=== PATIENT | female | born 1950 | race Caucasian/White ===

== ENCOUNTER 2017-02-06 12:04 | Inpatient (IN) | payer MEDICARE, OTHER ==
[~2017-02-06] VITALS: Ht 167.6 cm; Wt 104.3 kg
[~2017-02-06 12:04] MED LIST: CHERATUSSIN AC473 ML PO; CYCLOBENZAPRINE10 MG PO; FLAGYL500 MG PO; FLORANEX / LACT1 TAB PO; HYDROCODONE-APA1 TAB PO; LASIX40 MG PO; LOPRESSOR25 MG PO; NEURONTIN600 MG PO; OLEPTRO ER150 MG PO; OMEPRAZOLE40 MG PO; PLAQUENIL200 MG PO; SALAGEN5 MG PO; VASERETIC 10-251 TAB PO
[2017-02-06 13:09] LABS: BASOPHILS 0.2 % (0.0-2.0); EOSINOPHILS 0.1 % (0-7); HEMATOCRIT 39.5 % (36.0-48.0); HEMOGLOBIN 13.3 g/dL (12-16); IMMATURE GRANULOCYTES 0.3 % (0-5); LYMPHOCYTES 17.5 % (15-50); MCH 32.9 pg (26.0-34.0); MCHC 33.7 g/dL (31.0-37.0); MCV 97.8 fL (80.0-100.0); MEAN PLATELET VOLUME 10.9 fL (7.4-10.4); MONOCYTES 4.1 % (2-11); NEUTROPHILS 77.8 % (40-80); RBC 4.04 10x6/uL (4.00-5.40); RDW 14.2 % (11.5-14.5); WBC 9.3 10x3/uL (4.8-10.8)
[2017-02-06 13:23] LABS: ALBUMIN 3.3 g/dL (3.4-5.0); ALKALINE PHOSPHATASE 178 U/L (46-116); ALT (SGPT) 55 U/L (10-68); AMYLASE - SERUM 93 U/L (25-115); BILIRUBIN - TOTAL 0.83 mg/dL (0.2-1.3); CALC OSMOLALITY 261 mosm/kg (275-300); CALCIUM 7.5 mg/dL (8.5-10.1); CARBON DIOXIDE 11.3 mmol/L (21.0-32.0); CHLORIDE - SERUM 93 mmol/L (98-107); CREATININE - SERUM 0.7 mg/dL (0.6-1.3); LIPASE 645 U/L (73-393); POTASSIUM - SERUM 3.1 mmol/L (3.5-5.1); PROTEIN - SERUM 6.3 g/dL (6.4-8.2); SODIUM 133 mmol/L (136-145); UREA NITROGEN 10 mg/dL (7-18); eGFR NON AFRICAN AMERICAN 89 mL/min (90-120)
[2017-02-06 13:24] LABS: GLUCOSE 53 mg/dL (74-106)
[2017-02-06 13:30] LABS: PLATELET COUNT 40 10x3/uL (130-400)
[2017-02-06 13:46] LABS: APPEARANCE CLEAR (CLEAR); BILIRUBIN NEGATIVE (NEGATIVE); COLOR YELLOW (YELLOW); GLUCOSE NEGATIVE (NEGATIVE); KETONE LARGE mg/dL (NEGATIVE); LEUKOCYTE ESTERASE NEGATIVE (NEGATIVE); NITRITE NEGATIVE (NEGATIVE); PROTEIN TRACE mg/dL (NEGATIVE); UROBILINOGEN NORMAL (NORMAL); WHITE CELLS - URINE RARE /hpf (0-5)
[2017-02-06 13:47] LABS: BACTERIA FEW /hpf (NONE SEEN); EPITHELIAL CELLS 0-5 /hpf (0-5); GRANULAR CAST RARE /lpf (NONE SEEN); HYALINE CAST 0-5 /lpf (NONE SEEN); MUCUS <1+ /lpf (NONE SEEN); RED CELLS - URINE RARE /hpf (0-5)
[2017-02-06 13:58] LABS: PLATELET ESTIMATE DECREASED
[2017-02-06] MEDS ORDERED: LEVOTHYROXINE50 MCG PO (19:31)
[2017-02-06] MEDS ORDERED: CLONAZEPAM2 MG/TAB PO (19:31)
[2017-02-06 19:32] VITALS: BMI 37.2
[2017-02-06 20:00] VITALS: BP 139/83
--- NOTE | 2017-02-06 21:12 | NUR ---
HYDROCODONE GIVEN PER MAR FOR C/O R EASTMAN PAIN 08/16, LEONEL WELL, CL IN REACH
--- NOTE | 2017-02-06 21:55 | NUR ---
MEDS GIVEN PER BLANK, LEONEL WELL, SPOUSE AT BEDSIDE, CL IN REACH
[2017-02-07] VITALS: BP 135/67
[2017-02-07] MEDS ORDERED: LYRICA50 MG PO (01:05)
--- NOTE | 2017-02-07 01:17 | NUR ---
PRN NORCO GIVEN FOR C/O R EASTMAN PAIN 05/16, LEONEL WELL, CL IN REACH
[2017-02-07 08:06] VITALS: BP 129/68
[2017-02-07 11:21] VITALS: BP 130/81
[2017-02-07 12:00] LABS: BASOPHILS 0.1 % (0.0-2.0); EOSINOPHILS 0.8 % (0-7); IMMATURE GRANULOCYTES 0.3 % (0-5); LYMPHOCYTES 17.7 % (15-50); MCH 32.4 pg (26.0-34.0); MCHC 33.5 g/dL (31.0-37.0); MCV 96.6 fL (80.0-100.0); MEAN PLATELET VOLUME 10.6 fL (7.4-10.4); MONOCYTES 4.6 % (2-11); NEUTROPHILS 76.5 % (40-80); RBC 3.24 10x6/uL (4.00-5.40); RDW 14.1 % (11.5-14.5); WBC 7.2 10x3/uL (4.8-10.8)
[2017-02-07 12:01] LABS: HEMATOCRIT 31.3 % (36.0-48.0); HEMOGLOBIN 10.5 g/dL (12-16)
[2017-02-07 12:02] LABS: PLATELET COUNT 35 10x3/uL (130-400)
--- NOTE | 2017-02-07 12:05 | NUR ---
WOUND CARE: PT HAS LONG HX OF CHRONIC NON-HEALING SURGICAL WOUND TO ABDOMEN (7 YEARS). SHE IS SEEN AT WOUND CLINIC (DR. BREWER) WEEKLY AND HER DOES DRESSING CHANGES DAILY. CURRENTLY USING MEDIHONEY, ADAPTIC, 4X4S AND MEDIPORE TAPE. PT/ REQUEST THAT HE CONTINUES TO DO DRESSING CHANGES. WOUND CARE WILL CONTINUE TO MONITOR.
[2017-02-07 12:23] LABS: ALBUMIN 2.8 g/dL (3.4-5.0); BILIRUBIN - TOTAL 1.44 mg/dL (0.2-1.3); CALCIUM 8.1 mg/dL (8.5-10.1); PROTEIN - SERUM 5.7 g/dL (6.4-8.2)
[2017-02-07 12:24] LABS: ANION GAP 17.9 mmol/L (8-16); CARBON DIOXIDE 21.8 mmol/L (21.0-32.0); CREATININE - SERUM 0.9 mg/dL (0.6-1.3); POTASSIUM - SERUM 3.7 mmol/L (3.5-5.1)
[2017-02-07 14:27] VITALS: Ht 167.6 cm; Wt 104.3 kg
[2017-02-07 15:20] VITALS: BP 132/64
[2017-02-07 19:00] VITALS: BP 128/74
--- NOTE | 2017-02-07 20:10 | NUR ---
PT LYING IN BED TALKING WITH , ASSESSMENT COMPLETED, NO ACUTE DISTRESS NOTED, DENIES NEEDS AT THIS TIME, SR'S UP, CL IN REACH, WILL MONITOR
--- NOTE | 2017-02-07 22:46 | NUR ---
2 UNITS INSULIN GIVEN PER SLIDING SCALE FOR BS OF 173 ALONG WITH ROUTINE MEDS, LEONEL WELL, SPOUSE AT BEDSIDE
--- NOTE | 2017-02-07 23:18 | NUR ---
PRN PAIN MED GIVEN FOR C/O PAIN 06/16, LEONEL WELL, CL IN REACH
[2017-02-08] VITALS (13 sets, daily range): BP systolic 100–171; BP diastolic 49–95
--- NOTE | 2017-02-08 02:23 | NUR ---
LEONEL ROJAS WELL, PT AND RESTING WITH SNORING RESP, CL IN REACH
[2017-02-08 04:57] LABS: BASOPHILS 0.2 % (0.0-2.0); EOSINOPHILS 1.7 % (0-7); HEMATOCRIT 28.8 % (36.0-48.0); HEMOGLOBIN 9.6 g/dL (12-16); IMMATURE GRANULOCYTES 0.4 % (0-5); LYMPHOCYTES 33.5 % (15-50); MCH 32.3 pg (26.0-34.0); MCHC 33.3 g/dL (31.0-37.0); MEAN PLATELET VOLUME 9.8 fL (7.4-10.4); MONOCYTES 4.8 % (2-11); NEUTROPHILS 59.4 % (40-80); RBC 2.97 10x6/uL (4.00-5.40); RDW 13.9 % (11.5-14.5); WBC 5.4 10x3/uL (4.8-10.8)
[2017-02-08 05:11] LABS: HEMOGLOBIN A1C 4.8 % (4.8-6.0)
[2017-02-08 05:14] LABS: PLATELET COUNT 31 10x3/uL (130-400)
[2017-02-08 05:30] LABS: ALBUMIN 2.6 g/dL (3.4-5.0); ANION GAP 14.5 mmol/L (8-16); BILIRUBIN - TOTAL 0.67 mg/dL (0.2-1.3); CALCIUM 8.3 mg/dL (8.5-10.1); CARBON DIOXIDE 24.7 mmol/L (21.0-32.0); CHOL - HDL RATIO 1.7 ratio (2.3-4.1); CREATININE - SERUM 0.9 mg/dL (0.6-1.3); LDL-HDL RATIO 0.4 ratio (1.5-3.5); POTASSIUM - SERUM 3.2 mmol/L (3.5-5.1); PROTEIN - SERUM 5.5 g/dL (6.4-8.2); THYROID STIMULATING HORMONE 5.53 uIU/mL (0.36-3.74)
[2017-02-08 09:01] LABS: % SATURATION 49 % (15-55); IRON 55 ug/dl (35-150); TOTAL IRON BIND CAPACITY 112 ug/dl (260-445); UNSAT IRON BIND CAPACITY 57 ug/dl (150-375)
[2017-02-08 09:14] LABS: PATH REVIEW PERIPHERAL SMEAR REVIEWED
[2017-02-08 11:08] LABS: T4 THYROXIN - FREE 1.31 ng/dL (0.76-1.46)
--- NOTE | 2017-02-08 12:52 | NUR ---
Patient Name: CALEB TELLEZ Admission Status: ER Accout number: [id number] Admission Date: 02-07-2017 : 1950 Admission Diagnosis: Attending: SABINO Current LOS: 1 Anticipated DC Date: 02-11-2017 Planned Disposition: Home with Home Health Primary Insurance: MEDICARE A & B Discharge Planning Comments: CM MET WITH PATIENT REGARDING D/C NEEDS AND PLANS. PATIENT STATED SHE LIVES WITH HER (NILE) AND HE WILL DRIVE HER HOME AT DISCHARGE. PATIENT STATED SHE HAS A RAMP TO ENTER HER HOME AND NO STAIRS INSIDE. PATIENT STATED SHE IS INDEPENDENT WITH HER CARE AND HER HELPS WITH HER MEDICINE. PATIENTS PCP IS DR. PERAZA AND USES [facility]. PATIENT IS CURRENT WITH [facility]. CM WILL CONTINUE TO FOLLOW PATIENT WITH D/C NEEDS AND PLANS. PCP DR. PERAZA [facility]- [phone] [employer] [facility] [phone] NILE (SPOUSE) [phone] Infrastructure Engineer: Diane Daigle Is the patient Alert and Oriented? Yes 0 * How many steps to enter\exit or inside your home? RAMP 0 * PCP DR. PERAZA 0 * Pharmacy [facility] 0 * Preadmission Environment Home with Family 0 * ADLs Partial Dependent 0 * Partial ADLs (Assistance needed) Medication Management 0 * Equipment Cane Shower Chair Walker Wheelchair 0 * List name and contact numbers for known caregivers / representatives who currently or will assist patient after discharge: NILE (SPOUSE) [phone] 0 * Community resources currently utilized Home Health 0 * Please name any agencies selected above. [facility] 0 * Additional services required to return to the preadmission environment? Yes 0 * Can the patient safely return to the preadmission environment? Yes 0 * Has this patient been hospitalized within the prior 30 days at any hospital? No 0 Grand Total: 0
--- NOTE | 2017-02-08 15:12 | NUR ---
Rehab Note- Acute Rehab Prescreen received. The patient appears to be a good IRF candidate when the physicians feel she is ready for discharge from the acute hospital. Thank you for this referral! Linsey Urena RN Clinical Liaison. [facility] Rehab/[place]
[2017-02-09] VITALS: BP 117/71
[2017-02-09 04:00] VITALS: BP 111/98
[2017-02-09 05:50] LABS: BASOPHILS 0.4 % (0.0-2.0); EOSINOPHILS 3.5 % (0-7); HEMATOCRIT 27.6 % (36.0-48.0); HEMOGLOBIN 9.2 g/dL (12-16); IMMATURE GRANULOCYTES 0.5 % (0-5); LYMPHOCYTES 31.3 % (15-50); MCH 32.6 pg (26.0-34.0); MCHC 33.3 g/dL (31.0-37.0); MCV 97.9 fL (80.0-100.0); MEAN PLATELET VOLUME 10.3 fL (7.4-10.4); MONOCYTES 5.8 % (2-11); NEUTROPHILS 58.5 % (40-80); RBC 2.82 10x6/uL (4.00-5.40); RDW 14.1 % (11.5-14.5); WBC 5.5 10x3/uL (4.8-10.8)
[2017-02-09 05:53] LABS: PLATELET COUNT 88 10x3/uL (130-400)
[2017-02-09 06:12] LABS: % SATURATION 16 % (15-55); IRON 34 ug/dl (35-150); TOTAL IRON BIND CAPACITY 206 ug/dl (260-445); UNSAT IRON BIND CAPACITY 172 ug/dl (150-375)
[2017-02-09 06:26] LABS: ALBUMIN 2.8 g/dL (3.4-5.0); ANION GAP 14.5 mmol/L (8-16); BILIRUBIN - TOTAL 0.45 mg/dL (0.2-1.3); CALCIUM 8.2 mg/dL (8.5-10.1); CARBON DIOXIDE 23.8 mmol/L (21.0-32.0); CREATININE - SERUM 0.9 mg/dL (0.6-1.3); POTASSIUM - SERUM 3.3 mmol/L (3.5-5.1); PROTEIN - SERUM 5.6 g/dL (6.4-8.2)
--- NOTE | 2017-02-09 07:30 | NUR ---
PATIENT RECEIVED ALERT IN HIGH PETIT POSITION WITH FAMILY PRESENT. RESPIRATIONS EVEN AND UNLABORED. SIDE RAILS UP X2. BED IN LOW POSITION. CALL LIGHT IN REACH. DENIES NEEDS.
[2017-02-09 08:59] VITALS: BP 131/76
--- NOTE | 2017-02-09 09:30 | NUR ---
ALERT IN BED. RESPIRATIONS EVEN AND UNLABORED. SCHEDULED MEDICATION ADMINISTERED. DENIES NEEDS. DRESSING TO LEFT INFUSAPORT CHANGED PER FACILITY PROTOCOL. MASK PLACED ON PATIENT. OLD DRESSING REMOVED. NO REDNESS OR INFLAMMATION NOTED AT SITE. CLEANSED WITH CLEANSER PROVIDED IN KIT. BIOPATCH AND CLEAN TEGADERM DRESSING PLACED AT SITE. SWAB CAPS IN USE. WELL TOLERATED. SIDE RAILS UP X2. BED IN LOW POSITION. CALL LIGHT IN REACH.
--- NOTE | 2017-02-09 11:03 | NUR ---
ALERT IN BED. ACCU CHECK 101. NORCO 2 TAB PER PRN ORDER FOR PAIN 06/16. NO FURTHER NEEDS VOICED. SIDE RAILS UP X2. BED IN LOW POSITION. CALL LIGHT IN REACH.
--- NOTE | 2017-02-09 13:04 | NUR ---
NUTRITION MONITORING & EVAL CHART REVIEWED. PT TOLERATING ADA DIET. ~75% INTAKE BREAKFAST, NOT YET FINISHED LUNCH. WILL CONTINUE TO PROVIDE DIET, MONITOR PT PROGRESS. RD FOLLOWING
[2017-02-09 13:09] VITALS: BP 117/70
--- NOTE | 2017-02-09 14:20 | NUR ---
IV ABX INITIATED PER ORDER. INFUSAPORT FLUSHES EASY WITH BRISK BLOOD RETURN PRESENT. DENIES NEEDS. SIDE RAILS UP X2. BED IN LOW POSITION. CALL LIGHT IN REACH.
--- NOTE | 2017-02-09 15:32 | NUR ---
CM REASSESSMENT NOTE: REFERRAL HAS BEEN SENT TO [facility] FOR SKILLED REHAB PER PATIENT REQUEST. PATIENT SIGNED THE IVON FORM.
[2017-02-09] MEDS ORDERED: PROTONIX40 MG PO (15:40)
[2017-02-09] MEDS ORDERED: OMNICEF300 MG PO (15:41)
--- NOTE | 2017-02-09 15:54 | NUR ---
Rehab Note- Spoke with the patient about [facility], the patient was very interested but wanted to speak with her , stated also looking to just go to [facility] because it is two blocks from her home. The patient called back around 1330 and stated that she was going to plan on going to [facility] since it was so close to home. Thank you for this referral! Linsey Urena RN Clinical Liaison, [facility] Rehab/[place]
--- NOTE | 2017-02-09 16:30 | NUR ---
ALERT IN BED WITH FAMILY PRESENT. ACCU CHECK 94. NORCO PER PRN ORDER FOR PAIN 06/16. NO FURTHER NEEDS VOICED. SIDE RAILS UP X2. BED IN LOW POSITION. CALL LIGHT IN REACH.
[2017-02-09 17:30] VITALS: BP 113/72
[2017-02-09 19:00] VITALS: BP 114/67
--- NOTE | 2017-02-09 20:18 | NUR ---
PATIENT RESTING IN BED WITH AT BEDSIDE AND DENIES NEEDS AT THIS TIME. BED IN LOWEST POSITION AND CALL LIGHT WITHIN REACH. ENCOURAGED PATIENT TO CALL IF SHE HAS FURTHER NEEDS.
[2017-02-10] VITALS: BP 114/73
[2017-02-10 04:00] VITALS: BP 118/68
[2017-02-10 06:43] LABS: ALBUMIN 2.5 g/dL (3.4-5.0); ALKALINE PHOSPHATASE 105 U/L (46-116); ALT (SGPT) 53 U/L (10-68); BILIRUBIN - TOTAL 0.22 mg/dL (0.2-1.3); CALC OSMOLALITY 266 mosm/kg (275-300); CALCIUM 8.1 mg/dL (8.5-10.1); CARBON DIOXIDE 24.5 mmol/L (21.0-32.0); CHLORIDE - SERUM 102 mmol/L (98-107); CREATININE - SERUM 0.7 mg/dL (0.6-1.3); GLUCOSE 82 mg/dL (74-106); POTASSIUM - SERUM 3.5 mmol/L (3.5-5.1); PROTEIN - SERUM 4.9 g/dL (6.4-8.2); SODIUM 135 mmol/L (136-145); UREA NITROGEN 7 mg/dL (7-18); eGFR NON AFRICAN AMERICAN 89 mL/min (90-120)
[2017-02-10 07:36] LABS: BASOPHILS 0.4 % (0.0-2.0); EOSINOPHILS 3.2 % (0-7); HEMATOCRIT 27.3 % (36.0-48.0); HEMOGLOBIN 8.9 g/dL (12-16); IMMATURE GRANULOCYTES 0.4 % (0-5); LYMPHOCYTES 31.6 % (15-50); MCHC 32.6 g/dL (31.0-37.0); MONOCYTES 9.1 % (2-11); NEUTROPHILS 55.3 % (40-80); PLATELET COUNT 87 10x3/uL (130-400); RDW 14.6 % (11.5-14.5); WBC 4.9 10x3/uL (4.8-10.8)
--- NOTE | 2017-02-10 07:40 | NUR ---
REQUEST TO TALK TO PT, SINUS TACH ON MONITOR, DENIES NEEDS, REQUEST SHOWER, ASSESSMENT COMPLETE, BED LOWEST POSITION, CALL LIGHT IN REACH, WILL CONTINUE TO MONITOR
[2017-02-10 07:43] LABS: MCV 101.1 fL (80.0-100.0)
[2017-02-10 08:00] VITALS: BP 113/59
--- NOTE | 2017-02-10 09:10 | NUR ---
CM REASSESSMENT NOTE: PATIENT WANTS TO GO TO IP REHAB AT THIS TIME AND NOT [facility]. IP REHAB NOTIFIED-THEY HAVE BEEN FOLLOW PATIENT.
[2017-02-10 12:00] VITALS: BP 109/61
--- NOTE | 2017-02-10 12:50 | NUR ---
PATIENT AMBULATING IN THE SPARROW WITH PHYSICAL THERAPY. GAIT STEADY. NO SIGNS OF DISTRESS NOTED.
--- NOTE | 2017-02-10 14:07 | NUR ---
CM REASSESSMENT NOTE: PATIENT IS GOING TO IP REHAB TODAY.
--- NOTE | 2017-02-10 14:11 | NUR ---
CM REASSESSMENT NOTE: PATIENT IS GOING TO IP REHAB TODAY.
--- NOTE | 2017-02-10 17:35 | NUR ---
DISCHARGE PAPERS AND INSTRUCTIONS GIVEN TO PATIENT AND SPOUSE, QUESTIONS ANSWERED, PORT SALINE LOCKED, DISCHARGED TO REHAB PWE WC WITH BELONGINGS
[2017-02-11 13:17] LABS: ADAMTS13 ACTIVITY 55 % (>66)
== END 2017-02-10 17:36 | DRG 813 ==
LOC: D.ER 12:04 → OBSVTIME 17:51 → D.MS 17:51 → D.SDCHOLD 02-07 13:41 → D.MS 02-07 13:41
PROVIDERS: Emergency Medicine; Family Medicine; Internal Medicine Gastroenterology; Internal Medicine Hematology & Oncology; ADMIT Family Medicine
DX: D69.6 Thrombocytopenia, unspecified (principal); J18.9 Pneumonia, unspecified organism; R53.2 Functional quadriplegia; E87.1 Hypo-osmolality and hyponatremia; K86.1 Other chronic pancreatitis; K92.1 Melena; R53.1 Weakness; E87.6 Hypokalemia; E86.0 Dehydration; E16.2 Hypoglycemia, unspecified; I10 Essential (primary) hypertension; E03.9 Hypothyroidism, unspecified; D86.9 Sarcoidosis, unspecified; D63.8 Anemia in other chronic diseases classified elsewhere; Z95.5 Presence of coronary angioplasty implant and graft; M32.9 Systemic lupus erythematosus, unspecified; D50.9 Iron deficiency anemia, unspecified; R19.7 Diarrhea, unspecified

== ENCOUNTER 2017-02-10 16:29 | Inpatient (IN) | payer MEDICARE, OTHER ==
[~2017-02-10] VITALS: Ht 167.6 cm; Wt 108.9 kg
[~2017-02-10 16:29] MED LIST changes: +CLONAZEPAM2 MG/TAB PO; +LEVOTHYROXINE50 MCG PO; +LYRICA50 MG PO; +OMNICEF300 MG PO; +PROTONIX40 MG PO
--- NOTE | 2017-02-10 16:50 | NUR ---
RECIEVED ON FLOOR/WC TO ROOM 1112B.ORIENTED TO SURROUNDINGS.CL IN REACH. AT BEDSIDE.
[2017-02-10 18:13] VITALS: BP 120/65; BMI 38.8
--- NOTE | 2017-02-10 19:20 | NUR ---
PT. IN BED WITH HOB UP FOR COMFORT AND IS WATCHING TV. ASSESSMENT COMPLETED. PT. REQUESTING PAIN MEDICATION FOR HER SENIOR LIVING PAIN IN THE LLQ ABD. AREA AND ALSO HER SHINS. NORCO WILL BE ADMINISTERED. NO OTHER VOICED NEEDS AT THIS TIME AND SHE HAS HER CALL LIGHT WITHIN REACH.
--- NOTE | 2017-02-10 23:10 | NUR ---
ASSISTED PT. TO BATHROOM TO URINATE. PT. APPLIED HER OWN NYSTATIN CREAM AND CALMOSEPTINE AFTER SHE HAD WIPED HERSELF. PT. BACK TO BED AND POSITIONED TO COMFORT AFTER APPLYING THE SCD'S. CALL LIGHT WITHIN REACH.
--- NOTE | 2017-02-11 01:28 | NUR ---
PT. IN BED WITH HOB UP FOR COMFORT WITH EYES CLOSED AND RESP. DEEP AND EVEN. SCD'S TO BLE'S ON AND CALL LIGHT WITHIN REACH.
--- NOTE | 2017-02-11 04:17 | NUR ---
PT. LYING IN BED ON HER RIGHT SIDE WITH HOB UP FOR COMFORT. EYES CLOSED AND RESP. EVEN. CALL LIGHT WITHIN REACH.
[2017-02-11 05:59] LABS: BASOPHILS 0.9 % (0.0-2.0); EOSINOPHILS 3.5 % (0-7); HEMATOCRIT 26.4 % (36.0-48.0); HEMOGLOBIN 8.6 g/dL (12-16); IMMATURE GRANULOCYTES 0.3 % (0-5); LYMPHOCYTES 30.1 % (15-50); MCH 33.3 pg (26.0-34.0); MCHC 32.6 g/dL (31.0-37.0); MCV 102.3 fL (80.0-100.0); MEAN PLATELET VOLUME 10.3 fL (7.4-10.4); MONOCYTES 10.7 % (2-11); NEUTROPHILS 54.5 % (40-80); RBC 2.58 10x6/uL (4.00-5.40); RDW 16.3 % (11.5-14.5)
--- NOTE | 2017-02-11 06:00 | NUR ---
BLOOD SUGAR ON NON-DIABETIC PT. WAS 79 AND SHE WANTED DECAF. COFFEE WITH CREAMER. PT. TO CALL NURSE OF SHE STARTED TO GET DIZZY, WEAK, CLAMMY OR JUST FEELING BAD. PT. SAID SHE WOULD. CALL LIGHT WITHIN REACH.
[2017-02-11 06:06] LABS: WBC 3.5 10x3/uL (4.8-10.8)
[2017-02-11 06:07] LABS: PLATELET COUNT 114 10x3/uL (130-400)
[2017-02-11 06:14] LABS: CALC OSMOLALITY 267 mosm/kg (275-300); CALCIUM 8.2 mg/dL (8.5-10.1); CARBON DIOXIDE 25.8 mmol/L (21.0-32.0); CHLORIDE - SERUM 102 mmol/L (98-107); CREATININE - SERUM 0.8 mg/dL (0.6-1.3); POTASSIUM - SERUM 3.5 mmol/L (3.5-5.1); SODIUM 136 mmol/L (136-145); UREA NITROGEN 6 mg/dL (7-18); eGFR NON AFRICAN AMERICAN 76 mL/min (90-120)
[2017-02-11 06:20] LABS: GLUCOSE 69 mg/dL (74-106)
--- NOTE | 2017-02-11 06:30 | NUR ---
WHILE ASSISTING PT. GETTING DRESSED FOR THE DAY SHE STARTED TO FEEL CLAMMY. PT. ASSISTED BACK TO BED AND GIVEN CRANBERRY JUICE COCKTAIL AND A COLD WASH CLOTH. AFTER APPROX. 5 MIN. PT. FELT MUCH BETTER. CALL LIGHT WITHIN REACH AND PT. AGAIN INSTRUCTED TO CALL NURSE IF SHE STARTED TO FEEL BAD AGAIN.
--- NOTE | 2017-02-11 07:00 | NUR ---
PT WAS RECEIVED AT THE BEGINNING OF THIS SHIFT IN BED AWAKE AND ORIENTED X 3. NO VOICED COMPLAINTS OR CONCERNS AT THIS TIME. VITAL SIGNS; TEMP. 97.9, PULSE 78, RESP. 14, B/P 110/61, O2SAT 98%. WILL BE MONITORING HER THROUGHOUT THIS SHIFT AND ASSISTING PRN WITH ADL'S. CALL LIGHT IS IN REACH.
--- NOTE | 2017-02-11 08:02 | NUR ---
PT UP IN WHEELCHAIR AT BEDSIDE EATING BREAKFAST CALL LIGHT IN REACH WILL MONITER
[2017-02-11 08:41] VITALS: BP 110/61
[2017-02-11 12:56] VITALS: Ht 167.6 cm; Wt 108.9 kg
--- NOTE | 2017-02-11 13:47 | NUR ---
PT ASKED FOR A PAIN PILL THIS MORNING AROUND 0840 AND AGAIN THIS AFTERNOON AT 1PM. SHE WAS GIVEN A NORCO 10MG EACH TIME FOR HER DISCOMFORT IN HER RIGHT EASTMAN AREA AND HER ABDOMINAL WOUND. WILL BE MONITORING HER COMFORT LEVEL. HER IS AT HER BEDSIDE VISITING HER.
[2017-02-11 18:58] VITALS: BP 109/60
--- NOTE | 2017-02-11 19:51 | NUR ---
PT RECEIVED IN CHAIR AT BEDSIDE READING A BOOK. PAIN LEVEL 7/10 PT STATES SHE HAD PAIN PILL AT 1700. NO OTHER CONCERNS MADE KNOWN. WILL ADMINISTER PRN WHEN AVAILABLE. CALL LIGHT IN REACH.
--- NOTE | 2017-02-12 02:43 | NUR ---
PT IN BED AT THIS TIME WITH EYES CLOSED AND CHEST RISING. NO SIGN/SYMPTOMS OF DISTRESS NOTED. CALL LIGHT IN REACH,
[2017-02-12 07:00] VITALS: BP 122/59
--- NOTE | 2017-02-12 07:30 | NUR ---
PT IS RESTING IN BED WITH EYES OPEN. ALERT AND ORIENTED X 3. DENIES PAIN OR DISCOMFORT AT THIS TIME. NO SOB NOTED. DRESSING TO LEFT SIDE ABD IS CDI. LEFT CHEST PORT NOTED. SR'S ARE UP X 2 IN BED. CALL LIGHT AND BEDSIDE TABLE ARE WITHIN EASY REACH.
--- NOTE | 2017-02-12 09:48 | NUR ---
PT IS PARTICIPATING IN THERAPY AT THIS TIME.
--- NOTE | 2017-02-12 12:01 | NUR ---
PT IS RESTING QUIETLY IN BED WITH EYES OPEN. FEEDING SELF LUNCH WITHOUT DIFFICULTY. NO NEEDS VOICED.
--- NOTE | 2017-02-12 13:29 | NUR ---
PT IS PARTICIPATING IN THERAPY AT THIS TIME.
--- NOTE | 2017-02-12 15:43 | NUR ---
PT IS RESTING IN BED VISITING WITH FAMILY. NO DISTRESS NOTED.
--- NOTE | 2017-02-12 18:42 | NUR ---
RESTING QUIETLY IN BED. CALL LIGHT IN REACH
--- NOTE | 2017-02-12 21:02 | NUR ---
PT HS MEDS ADMINISTERED ALONG WITH REQUESTED KLONOPIN AND HYDROCODONE. PT APPLYING OWN CALMOSEPTINE AND NYSTATIN. WCTM. BED LOW. CL IN REACH.
--- NOTE | 2017-02-13 00:05 | NUR ---
PT RESTING, EYES CLOSED. BED LOW. CL IN [facility].
--- NOTE | 2017-02-13 01:04 | NUR ---
PT RESTING, EYES CLOSED. BED LOW. CL IN REACH.
--- NOTE | 2017-02-13 03:15 | NUR ---
PT RESTING, EYES CLOSED. RR ARE EVEN AND UNLABORED. WCTM. BED LOW. CL IN REACH.
--- NOTE | 2017-02-13 05:53 | NUR ---
PT AM MEDS ADMINISTERED. ASSISTED PT TO BR. PT BACK IN BED AND DENIES NEEDS. BED LOW. C DAVID REACH.
[2017-02-13 07:00] VITALS: BP 91/66
--- NOTE | 2017-02-13 07:30 | NUR ---
PT RESTING IN BED WITH EYES OPEN. ALERT AND ORIENTED X 3. STATES SHE DOES NOT REALLY FEEL GOOD TODAY, BUT CANNOT PINPOINT ANY SPECIFIC REASON FOR IT. VSS. LEFT CHEST PORT NOTED. ABD DRESSING IS CDI. SR'S ARE UP X 2 IN BED. CALL LIGHT AND BEDSIDE TABLE ARE WITHIN EASY REACH.
--- NOTE | 2017-02-13 07:30 | NUR ---
SITTING UP IN NC.CL IN REACH.DENIES NEEDS.
--- NOTE | 2017-02-13 09:37 | NUR ---
PT IS RESTING IN BED WATCHING TV. NO NEEDS VOICED.
--- NOTE | 2017-02-13 12:01 | NUR ---
PT IS EATING LUNCH IN BED. NO DISTRESS NOTED. SPOUSE IS AT BEDSIDE.
--- NOTE | 2017-02-13 15:00 | NUR ---
PT UP TO SHOWER WITH ASSIST OF HER SPOUSE. PT DENIES ANY DIFFICULTIES.
--- NOTE | 2017-02-13 16:43 | NUR ---
PT IS RESTING QUIETLY IN BED WITH EYES OPEN. VISITING WITH HER . NO NEEDS VOICED.
[2017-02-13 19:00] VITALS: BP 92/52
--- NOTE | 2017-02-13 19:20 | NUR ---
ASSISTED PATIENT UP TO BR, AMBULATING SBA WITH R/W, AND THEN BACK TO BED.
--- NOTE | 2017-02-13 21:10 | NUR ---
ASSESSMENT AND HS MEDS COMPLETE. GAVE PATIENT NORCO 10/325 X1 TAB PO FOR PAIN LEVEL OF 7/10 IN LEFT EASTMAN, RIGHT KNEE, AND ABDOMINAL WOUND. THEN ASSISTED HER TO AMBULATE TO BR.
--- NOTE | 2017-02-13 23:50 | NUR ---
RESTNG IN BED, EYES CLOSED.
[2017-02-14] VITALS (10 sets, daily range): BP systolic 101–126; BP diastolic 52–72
--- NOTE | 2017-02-14 02:00 | NUR ---
ASSISTED PATIENT UP TO BR TO URINATE, AND THEN BACK TO BED. AMBULATES SAFELY SBA WITH R/W.
--- NOTE | 2017-02-14 03:50 | NUR ---
RESTING IN BED, EYES CLOSED. RESPIRATIONS ARE QUIET AND UNLABORED.
--- NOTE | 2017-02-14 04:45 | NUR ---
RESTING QUIETLY, EYES CLOSED. RESPIRATIONS UNLABORED.
--- NOTE | 2017-02-14 06:00 | NUR ---
SHITAL BLOOD FOR LABS FROM LEFT CHEST INFUSAPORT FLUSHED PORT MULTIPLE TIMES AND FINALLY GOT GOOD BLOOD RETURN. OVSERVED PATIENT AMBULATED TO BR AND BACK USING R/W. TOO SCHEDULED PO MEDS. DENIES NEEDS.
[2017-02-14 06:14] LABS: BASOPHILS 0.9 % (0.0-2.0); EOSINOPHILS 1.9 % (0-7); IMMATURE GRANULOCYTES 0.3 % (0-5); LYMPHOCYTES 30.6 % (15-50); MCH 32.8 pg (26.0-34.0); MCV 102.5 fL (80.0-100.0); MEAN PLATELET VOLUME 9.3 fL (7.4-10.4); NEUTROPHILS 46.3 % (40-80); RBC 2.44 10x6/uL (4.00-5.40); RDW 16.3 % (11.5-14.5); WBC 3.2 10x3/uL (4.8-10.8)
[2017-02-14 06:23] LABS: PLATELET COUNT 224 10x3/uL (130-400)
[2017-02-14 06:32] LABS: CALC OSMOLALITY 284 mosm/kg (275-300); CALCIUM 7.7 mg/dL (8.5-10.1); CARBON DIOXIDE 25.5 mmol/L (21.0-32.0); CHLORIDE - SERUM 107 mmol/L (98-107); CREATININE - SERUM 0.7 mg/dL (0.6-1.3); GLUCOSE 74 mg/dL (74-106); POTASSIUM - SERUM 3.2 mmol/L (3.5-5.1); SODIUM 142 mmol/L (136-145); UREA NITROGEN 20 mg/dL (7-18); eGFR NON AFRICAN AMERICAN 89 mL/min (90-120)
--- NOTE | 2017-02-14 07:30 | NUR ---
RESTING QUIETLY IN BED CALL LIGHT IN REACH
--- NOTE | 2017-02-14 07:30 | NUR ---
PRN NORCO GIVEN FOR LEFT ABDOMINAL PAIN PER PATIENT REQUEST
--- NOTE | 2017-02-14 08:00 | NUR ---
PATIENT ALERT/ORIENT X4. CALL LIGHT WITHIN REACH. VOICES NO NEEDS AT THIS TIME
--- NOTE | 2017-02-14 09:38 | RHP ---
PATIENT: CALEB TELLEZ MEDICAL RECORD: [id number] ACCOUNT: [id number] LOCATION:[facility]1112 : 50 ADMISSION DATE: 02/10/17 REHABILITATION HISTORY AND PHYSICAL EXAMINATION POST ADMISSION PHYSICIAN EXAMINATION DATE OF ADMISSION TO REHAB: 02/10/2017 ADMITTING DIAGNOSES: Acute pneumonia involving bilateral lower lobes, and nausea and vomiting. HISTORY OF PRESENT ILLNESS: The patient is a 66-year-old female patient, who is admitted to the rehab with a working diagnosis of acute pneumonia involving both lower lobes. She was seen in the Emergency Room with several days of nausea and vomiting and her appetite was basically gone. She was not eating or drinking. Symptoms worsened to the point that she was unable to walk. She was admitted for weakness, hypoglycemia, initially found to have pneumonia, pancreatitis, anemia, electrolyte imbalances and decreased platelet count. She received platelets and she was noted to have guaiac-positive stools. She has got a history of lupus, sarcoid, Sjogren's, chronic diarrhea and chronic abdominal wound from multiple abdominal surgeries. She also had failed hernia mesh placement. She has been noted to have a resection for gangrene in the past of her ascending and transverse colon. She continues on IV antibiotic therapy and updrafts. She was independent with ADLs and moderately independent with use of a rolling walker for mobility. She is currently standby assist to max assist for ADLs and moderate assist to max assist for mobility and transfers. She lives at home with her , plans to return home and would like to get back to her prior level of functioning. COMORBIDITIES: In this patient include chronic lupus, sarcoid, anemia, thrombocytopenia, nausea and vomiting, dehydration, electrolyte abnormalities, functional quadriplegia, neuropathy, pancreatitis, abdominal pain, history of C. difficile colitis, pneumonia, hypothyroidism and diabetes. PAST MEDICAL HISTORY: Significant for Sjogren's, lupus, diabetes, hypertension, coronary artery disease, hypothyroidism, neuropathy and chronic diarrhea. PAST SURGICAL HISTORY: Includes angioplasty with stent placement, gallbladder surgery, hernia, colon surgery, appendectomy, tonsillectomy, adenoidectomy, hysterectomy, multiple abdominal surgeries and hernia repair, rotator cuff surgery, bladder sling and gastric bypass. ALLERGIES: ANY TYPE OF IV DYE. CURRENT MEDICATIONS: Include Desyrel 150 mg q.h.s., Lyrica 50 mg t.i.d., Floranex daily. She is on Protonix 40 mg daily, Synthroid 50 mcg daily, Plaquenil 400 mg daily, Calmoseptine and nystatin to apply topically b.i.d., Rice 1 tab q.4 hours p.r.n. pain, Flexeril 10 mg p.r.n., Klonopin 2 mg q.h.s. p.r.n. She is on Omnicef 300 mg b.i.d. and polyethylene glycol 17 grams in 8 ounces of water daily. HABITS: No alcohol or tobacco use. FAMILY HISTORY: Noncontributory. HISTORY AND PHYSICAL [id number] CALEB TELLEZ SOCIAL HISTORY: The patient once again hopes to return home with her and get back to her prior level of functioning. REVIEW OF SYSTEMS: GENERAL: Does complain of weakness and fatigue. HEENT: Denies cold, cough, or congestion. CARDIOVASCULAR: Denies chest pain. LUNGS: Does complain of shortness of breath with activity. PHYSICAL EXAMINATION: VITAL SIGNS: Stable. She is afebrile. GENERAL: An obese female in no acute distress, alert upon exam. HEENT: Normocephalic, atraumatic. Mucosa moist. NECK: Supple. No adenopathy. LUNGS: Coarse breath sounds bilaterally. CARDIOVASCULAR: Regular rate and rhythm. ABDOMEN: Benign, although she does have previous scars noted and some also noted excoriations to her abdomen. NEUROLOGIC: She seems intact, although she does have decreased sensation. LABORATORY DATA: White count is 3.5, H&H of 8.6 and 26.4. Her MCV is 102.3, platelet count is 114. Her sodium is 136, potassium 3.5, BUN and creatinine of 6 and 0.8 and blood sugar is noted to be 69. ASSESSMENT: This is a 66-year-old female patient admitted to rehab with a working diagnosis of acute pneumonia involving bilateral lower lobes, nausea and vomiting, complicated by multiple autoimmune diseases. The patient has potential to make improvement. We instituted the following multidisciplinary therapies including to, but not limited to physical, occupational, respiratory, speech, nutritional services, prosthetics and orthotics. Given her complex condition and risk for more complications, rehabilitation services cannot be provided at a low level of care such as a snf facility. PLAN: 1. Admit to [facility] rehab for intensive inpatient therapy to include the following disciplines: A. Physical therapy to improve gait, all transfer skills and bed mobility to a modified independent level. B. Occupational therapy to improve activities of daily living to a modified independent level. C. Case management to assist with discharge planning and placement options. D. Nutrition to assist with nutritional needs. E. Rehabilitation nursing to assist in monitoring the patient's underlying medical conditions and to assist with any type of bowel or bladder management. 2. The patient's current medications and medical care will be continued. 3. The patient will be placed on standard fall precautions. 4. The patient's estimated length of stay is approximately 7-10 days. 5. We will go ahead and monitor her H&H closely. Her MCV is increased. Anticipate this is from her gastric surgery in the past, but we will address this as needed. TRANSINT:[id number] Voice Confirmation ID: [id number] DOCUMENT ID: [id number] HISTORY AND PHYSICAL [id number] CALEB TELLEZ SCOTT MD at 0938 CC: [id number] DICTATION DATE: 02/11/17907 TRIAGE REGISTERED NURSE: 02/11/17 0953 ADM IN [facility] [address] [place] [address]
--- NOTE | 2017-02-14 10:00 | NUR ---
PATIENT IN REHAB ROOM. WORKING WITH OCCUPATIONAL THERAPIST. DENIES ANY PAIN/DISC AT THIS TIME
--- NOTE | 2017-02-14 11:30 | NUR ---
PRN NORCO GIVEN FOR LEFT ABDOMINAL PAIN/DISC
--- NOTE | 2017-02-14 14:07 | NUR ---
Nutrition Follow Up: Chart reviewed. Pt is eating 100% meal avg on an ADA diet. Pt is receiving 1 pkt Jermaine BID. +BM 02/14/17. Meds and labs noted. Rec continue current diet. Will continue to send Jermaine BID. RD following.
--- NOTE | 2017-02-14 16:51 | NUR ---
PRN NORCO GIVEN FOR LEFT ABDOMINAL PAIN. AT ROOM BY PATIENTS BEDSIDE. HELPED PATIENT WALK TO BATHROOM WITH WHEELED WALKER. GIAT STEADY WITH WHEELED WALKER
--- NOTE | 2017-02-14 18:38 | NUR ---
IV POLE, VITAL SIGN MACHINE. SET UP FOR PATIENT TO RECEIVE TWO UNITS OF PRBC
--- NOTE | 2017-02-14 18:55 | NUR ---
IN BED, AWAKE. DENIES NEEDS.
--- NOTE | 2017-02-14 20:20 | NUR ---
ASSESSMENT AND HS MEDS COMPLETE.
--- NOTE | 2017-02-14 21:05 | NUR ---
STARTED 1ST UNIT OF PRBCS OF 2 UNITS ORDERED. PREMEDICATED PATIENT WITH 12.5MG IVP BENADRYL AND TYLENOL 325MG PO AT 2020. BLOOD TO RUN @ 167ML/HR RATE PER PUMP VIA LEFT CHEST INFUSAPORT.
--- NOTE | 2017-02-14 21:15 | NUR ---
GAVE PATIENT NORCO X1 TAB PO FOR ABDOMINAL WOUND PAIN OF 06/16. SAYS SHE FELT SHE STRETCHED IT QUITE A BIT DOING THERAPY TODAY, BUT SAYS IT NEEDED IT.
--- NOTE | 2017-02-14 22:40 | NUR ---
1ST UNIT OF PRBC'S COMPLETE. PUMP SET TO INFUSE NS AT 10ML/HR KVO UNTIL 2ND UNIT CAN BE STARTED. PATIENT RESTING QUIETLY IN BED.
--- NOTE | 2017-02-14 23:30 | NUR ---
STARTED 2ND UNIT PRBC'S TO RUN @ 167ML/HR RATE PER PUMP VIA LEFT CHEST INFUSAPORT.
[2017-02-15] VITALS (8 sets, daily range): BP systolic 90–117; BP diastolic 50–64
--- NOTE | 2017-02-15 00:25 | NUR ---
RESTING QUIETLY, EYES CLOSED. NO EVIDENT DISCOMFORT.
--- NOTE | 2017-02-15 02:00 | NUR ---
2ND UNIT OF BLOOD COMPLETED AT 0140. LINE FLUSHED WITH NS. PATIENT REMAINS IN BED, RESTING QUIETLY.
--- NOTE | 2017-02-15 03:23 | NUR ---
ASSISTED PATIENT UP TO BR TO URINATE. ON RETURN TO BED, C/O PAIN LEVEL OF 8/10 IN ABDOMINAL WOUND. GAVE HER NORCO 10/325 X1 TAB PO, ALONG WITH A CUP OF FRESH ICE WATER.
--- NOTE | 2017-02-15 08:18 | NUR ---
PT RESTING IN BED WITH EYES OPEN CALL LIGHT IN REACH WILL MONITER PT EATIN
--- NOTE | 2017-02-15 14:41 | NUR ---
PT UP IN WHEELCHAIR COMPLAINS OF PAIN 8/10 TO ABDOMEN PAIN MEDS GIVEN PER DRS ORDER CALL LIGHT IN REACH IN ROOM WILL MONITER
--- NOTE | 2017-02-15 19:35 | NUR ---
PT. IN BED WITH HOB UP FOR COMFORT AND VISITING WITH VISITORS WHO LEFT SOON I CAME TO PT'S BED. ASSESSMENT COMPLETED. PT. REPORTS SHE IS GOING LONGER BETWEEN PAIN MEDICATIONS AND THIS HAS BEEN A GOAL OF HERS TO BE ABLE TO DO. NO VOICED NEEDS AT THIS TIME. BLE'S ELEVATED UP ON PILLOWS TO HELP DECREASE EDEMA. CALL LIGHT REMAINS WITHIN REACH.
--- NOTE | 2017-02-15 22:12 | NUR ---
PT. IN BED LYING ON HER BACK WITH HOB UP FOR COMFORT AND IS WATCHING TV. NO VOICED NEEDS AT THIS TIME AND HER CALL LIGHT IS WITHIN REACH.
--- NOTE | 2017-02-16 06:02 | NUR ---
PT. IN BED WITH HOB UP FOR COMFORT AND FOB ELEVATED AND LE'S UP ON PILLOWS TO HELP DECREASE EDEMA. EYES CLOSED AND RESP. EVEN. CALL LIGHT WITHIN REACH.
[2017-02-16 06:47] LABS: BASOPHILS 0.9 % (0.0-2.0); EOSINOPHILS 2.6 % (0-7); IMMATURE GRANULOCYTES 0.3 % (0-5); MCH 32.1 pg (26.0-34.0); MCHC 32.2 g/dL (31.0-37.0); MEAN PLATELET VOLUME 9.3 fL (7.4-10.4); MONOCYTES 19.9 % (2-11); NEUTROPHILS 39.3 % (40-80); PLATELET COUNT 230 10x3/uL (130-400); RDW 18.4 % (11.5-14.5); WBC 3.5 10x3/uL (4.8-10.8)
[2017-02-16 06:50] LABS: HEMATOCRIT 31.7 % (36.0-48.0); HEMOGLOBIN 10.2 g/dL (12-16); MCV 99.7 fL (80.0-100.0); RBC 3.18 10x6/uL (4.00-5.40)
[2017-02-16 06:59] LABS: CALC OSMOLALITY 280 mosm/kg (275-300); CALCIUM 7.9 mg/dL (8.5-10.1); CARBON DIOXIDE 27.3 mmol/L (21.0-32.0); CHLORIDE - SERUM 107 mmol/L (98-107); CREATININE - SERUM 0.6 mg/dL (0.6-1.3); GLUCOSE 71 mg/dL (74-106); POTASSIUM - SERUM 3.3 mmol/L (3.5-5.1); SODIUM 142 mmol/L (136-145); eGFR NON AFRICAN AMERICAN > 90 mL/min (90-120)
[2017-02-16 07:02] LABS: UREA NITROGEN 13 mg/dL (7-18)
--- NOTE | 2017-02-16 07:56 | NUR ---
PT RESTING IN BED WITH EYES OPEN CALL LIGHT IN REACH PT EATING BREAKFAST TOLERATING WELL WILL MONITER
[2017-02-16 09:08] VITALS: BP 108/65
--- NOTE | 2017-02-16 11:05 | NUR ---
IN THERAPY.LEONEL WELL.
--- NOTE | 2017-02-16 15:43 | NUR ---
PT RESTING IN BED WITH EYES OPEN CALL LIGHT IN REACH NO PROBLEMS WILL MONITER
--- NOTE | 2017-02-16 17:10 | NUR ---
CARE TEAM MEETING: SPOUSE ATTENDED THE MEETING AND PATIENT WILL DISCHARGE 02/18/17 . APPOINTMENT WITH DR. PERAZA AND [facility] WILL RESUME CARE OF PATIENT. WILL CONTNUE TO FOLLOW WITH PATIENT UNTIL DISCHARGED
--- NOTE | 2017-02-16 17:24 | NUR ---
PT RESTING IN BED WITH EYES OPEN CALL LIGHT IN REACH NO PROBLEMS WILL MONITER
--- NOTE | 2017-02-16 19:30 | NUR ---
PT RECEIVED IN BED WITH EYES OPEN WATCHING TV. NO COMPLAINTS OR CONCERNS NOTED AT THIS TIME. CALL LIGHT IN REACH.
[2017-02-16 22:21] VITALS: BP 105/57
--- NOTE | 2017-02-17 01:27 | NUR ---
PT IN BED WITH EYES OPEN WATCHING TV. INFUSAPORT BATISTA NEEDLE REPLACED USING STERILE TECHNIQUE BY CHARGE NURSE WITH NEW DRESSING APPLIED. PT TOLERATED WELL. NO COMPLAINTS OR CONCERNS MADE KNOWN. CALL LIGHT IN REACH.
--- NOTE | 2017-02-17 07:25 | NUR ---
PT IN BED WITH EYES OPEN WATCHING TV. COMPLAINS OF PAIN TO ABDOMINAL SORE. PRN MEDICATIONS AND AM MEDICATIONS GIVEN PER MAR. TOLERATED WELL. CALL LIGHT IN REACH.
--- NOTE | 2017-02-17 07:30 | NUR ---
DENIES NEEDS.IN BED WITH CL IN REACH.
--- NOTE | 2017-02-17 08:00 | NUR ---
PATIENT SITTING UP IN BED TO EAT BREAKFAST. ALERT/ORIENT X4. CALL LIGHT WITHIN REACH. VOICES NO NEEDS AT THIS TIME
[2017-02-17 08:18] VITALS: BP 105/53
--- NOTE | 2017-02-17 09:00 | NUR ---
PATIENT C/O NAUSEA. PRN ZOFRAN GIVEN
--- NOTE | 2017-02-17 12:23 | NUR ---
PATIENT WALKING WITH WHEELED WALKER TO BATHROOM WITH STAND BY ASST. PATIENT ABLE TO TAKE CARE OF OWN SANDRA CARE.
--- NOTE | 2017-02-17 14:07 | NUR ---
PATIENT IN REHAB ROOM. WORKING WITH PHYSICAL THERPIST. DENIES ANY PAIN/DISC AT THIS TIME
--- NOTE | 2017-02-17 15:50 | NUR ---
PATIENT DISCHARGING HOME WITH SPOUSE 02/18/17. [facility] WILL FOLLOW WITH PATIENT AT HOME. PATIENT HAS WALKER AT HOME, NO OTHER DME NEEDED AT THIS TIME. DR. PERAZA 03/04/17 @ 10:45. PATIENT CHOICE FOR HOME HEALTH AND [facility] FORM SIGNED, EXPLAINED AND FILED IN CHART. PATIENT EDUCATED ON DEEP BREATHING EXERCISES. PATIENT VOICED UNDERSTANDING. ORDERS FAXED TO HOME HEALTH WITH CONFORMATION RECIEVED
--- NOTE | 2017-02-17 18:15 | NUR ---
PT RESTING IN BED WITH EYES OPEN. NO NEEDS VOICED. SPOUSE AT BEDSIDE.
--- NOTE | 2017-02-17 19:00 | NUR ---
PT RECEIVED IN BED WITH OPEN WATCHING TV. NO CONCERNS MADE KNOWN AT THIS TIME. CALL LIGHT IN REACH.
[2017-02-17 19:10] VITALS: BP 111/58
--- NOTE | 2017-02-18 01:46 | NUR ---
PT IN BED WITH EYES CLOSED AND CHEST RISING. NO SIGN/SYMPTOMS OF DISTRESS NOTED. CALL LIGTH IN REACH.
[2017-02-18 06:22] LABS: BASOPHILS 0.9 % (0.0-2.0); EOSINOPHILS 3.4 % (0-7); HEMATOCRIT 33.1 % (36.0-48.0); HEMOGLOBIN 10.6 g/dL (12-16); LYMPHOCYTES 36.5 % (15-50); MEAN PLATELET VOLUME 9.4 fL (7.4-10.4); MONOCYTES 15.6 % (2-11); NEUTROPHILS 43.6 % (40-80); PLATELET COUNT 222 10x3/uL (130-400); RBC 3.31 10x6/uL (4.00-5.40); RDW 16.9 % (11.5-14.5); WBC 3.3 10x3/uL (4.8-10.8)
[2017-02-18 07:25] LABS: CALC OSMOLALITY 286 mosm/kg (275-300); CALCIUM 7.7 mg/dL (8.5-10.1); CARBON DIOXIDE 29.8 mmol/L (21.0-32.0); CHLORIDE - SERUM 108 mmol/L (98-107); CREATININE - SERUM 0.8 mg/dL (0.6-1.3); POTASSIUM - SERUM 3.9 mmol/L (3.5-5.1); SODIUM 145 mmol/L (136-145); UREA NITROGEN 13 mg/dL (7-18); eGFR NON AFRICAN AMERICAN 76 mL/min (90-120)
[2017-02-18 07:35] LABS: GLUCOSE 70 mg/dL (74-106)
--- NOTE | 2017-02-18 07:42 | NUR ---
PT IN BED WITH EYES OPEN NO CONCERNS MADE KNOWS. PT STATE THAT PAIN LEVELS AT THE LOWEST THAT THEY HAVE BEEN IN A LONG AT 5/10. RECEIVED 2 PRN PAIN MEDICATIONS THIS SHIFT. CALL LIGHT IN REACH.
[2017-02-18 08:01] VITALS: BP 102/48
--- NOTE | 2017-02-18 10:09 | NUR ---
RESTING QUIETLY IN BED CALL BRYAN IN REACH
--- NOTE | 2017-02-18 10:24 | NUR ---
PT DC'D TO HOME AT THIS TIME. DEPARTED UNIT VIA WC. SPOUSE IS CARRYING ALL HER BELONGINGS. DEPARTED UNIT VIA POV DRIVEN BY HER SPOUSE.
== END 2017-02-18 10:27 | disposition home health service (06) | DRG 193 ==
LOC: D.REHAB 16:29
PROVIDERS: ADMIT Emergency Medicine
DX: J18.9 Pneumonia, unspecified organism (principal); R53.2 Functional quadriplegia; K85.90 Acute pancreatitis without necrosis or infection, unspecified; E87.1 Hypo-osmolality and hyponatremia; R11.2 Nausea with vomiting, unspecified; D64.9 Anemia, unspecified; D69.6 Thrombocytopenia, unspecified; E86.0 Dehydration; E87.8 Other disorders of electrolyte and fluid balance, not elsewhere classified; G62.9 Polyneuropathy, unspecified; E03.9 Hypothyroidism, unspecified; E11.9 Type 2 diabetes mellitus without complications; M32.9 Systemic lupus erythematosus, unspecified; D86.9 Sarcoidosis, unspecified

== ENCOUNTER → 2017-05-04 10:22 | Outpatient (CLI) | payer MEDICARE, OTHER ==
[2017-02-11 12:56] VITALS: BMI 38.7
[2017-05-04 11:15] LABS: BASOPHILS 0.6 % (0-2); EOSINOPHILS 4.4 % (0-7); HEMATOCRIT 37.7 % (36.0-48.0); HEMOGLOBIN 12.3 g/dL (12-16); IMMATURE GRANULOCYTES 0.4 % (0-5); LYMPHOCYTES 22.2 % (15-50); MCH 34.7 pg (26.0-34.0); MCHC 32.6 g/dL (31.0-37.0); MCV 106.5 fL (80.0-100.0); MEAN PLATELET VOLUME 9.7 fL (7.4-10.4); MONOCYTES 7.1 % (2-11); NEUTROPHILS 65.3 % (40-80); RBC 3.54 10x6/uL (4.00-5.40); RDW 18.9 % (11.5-14.5)
[2017-05-04 11:36] LABS: ALBUMIN 2.8 g/dL (3.4-5.0); PHOSPHOROUS 3.6 mg/dL (2.5-4.9)
[2017-05-04 11:49] LABS: PLATELET COUNT 132 10x3/uL (130-400)
== END | disposition home or self-care (01) ==
LOC: D.LAB 10:15
PROVIDERS: Internal Medicine Gastroenterology
DX: M32.8 Other forms of systemic lupus erythematosus (principal); D64.9 Anemia, unspecified

== ENCOUNTER → 2017-05-17 13:56 | Outpatient (CLI) | payer MEDICARE, OTHER ==
[2017-02-11 12:56] VITALS: BMI 38.7
== END | disposition home or self-care (01) ==
LOC: D.LAB 13:56
DX: R19.7 Diarrhea, unspecified (principal)

== ENCOUNTER 2017-07-02 13:24 | Inpatient (IN) | payer MEDICARE, OTHER ==
[~2017-07-02] VITALS: Ht 167.6 cm; Wt 111.7 kg
[2017-07-02 14:26] LABS: BASOPHILS 0 % (0-2); EOSINOPHILS 0 % (0-7); HEMOGLOBIN 12.4 g/dL (12-16); IMMATURE GRANULOCYTES 0.4 % (0-5); LYMPHOCYTES 5.7 % (15-50); MCH 34.9 pg (26.0-34.0); MCHC 33.5 g/dL (31.0-37.0); MCV 104.2 fL (80.0-100.0); MONOCYTES 8.5 % (2-11); PLATELET COUNT 99 10x3/uL (130-400); RBC 3.55 10x6/uL (4.00-5.40); RDW 16.8 % (11.5-14.5); WBC 10.6 10x3/uL (4.8-10.8)
[2017-07-02 14:34] LABS: ALBUMIN 2.8 g/dL (3.4-5.0); BILIRUBIN - TOTAL 0.7 mg/dL (0.2-1.3); CALCIUM 7.9 mg/dL (8.5-10.1); CARBON DIOXIDE 13.1 mmol/L (21.0-32.0); CREATININE - SERUM 1.6 mg/dL (0.6-1.3); MAGNESIUM - SERUM 1.9 mg/dL (1.8-2.4); POTASSIUM - SERUM 3.1 mmol/L (3.5-5.1); PROTEIN - SERUM 6.3 g/dL (6.4-8.2)
[2017-07-02 15:02] LABS: NEUTROPHILS 85.4 % (40-80); PLATELET ESTIMATE DECREASED
[2017-07-02 15:14] LABS: THYROID STIMULATING HORMONE 1.76 uIU/mL (0.36-3.74)
[2017-07-02 15:32] LABS: APPEARANCE CLEAR (CLEAR); BILIRUBIN NEGATIVE (NEGATIVE); COLOR DK YELLOW (YELLOW); GLUCOSE NEGATIVE (NEGATIVE); KETONE MODERATE mg/dL (NEGATIVE); LEUKOCYTE ESTERASE NEGATIVE (NEGATIVE); NITRITE NEGATIVE (NEGATIVE); PROTEIN TRACE mg/dL (NEGATIVE); SPECIFIC GRAVITY 1.015 (1.005-1.020); UROBILINOGEN NORMAL (NORMAL)
[2017-07-02 15:34] LABS: RED CELLS - URINE 0-5 /hpf (0-5); WHITE CELLS - URINE 0-5 /hpf (0-5)
[2017-07-02 15:36] LABS: BACTERIA FEW /hpf (NONE SEEN)
[2017-07-02 22:56] VITALS: BP 150/76; BMI 38.8
--- NOTE | 2017-07-02 23:00 | NUR ---
PT RECIEVED TO ROOM FROM ER. RESTING QUIETLY, RR EVEN AND UNLABORED STATES PAIN IS 8/10 IN ABD AREA. PT HAD MODERTATE BM OF LIQUID, BROWN STOOL. VSS, WILL ADMIT PT AND CTM.
[2017-07-03] VITALS: BP 150/76
--- NOTE | 2017-07-03 | NUR ---
SCDS ON PT, EXPLAINED RATIONALE. PT VERBALIZED UNDERSTANDING.
--- NOTE | 2017-07-03 01:10 | NUR ---
SPOKE TO DR. CHACON ABOUT PT'S POTASSIUM BEING LOW. GAVE TELEPHONE ORDER FOR ELECTROLYTE PROTOCOL. WILL CTM LABS.
--- NOTE | 2017-07-03 01:30 | NUR ---
PT ASLEEP, RR EVEN AND UNLABORED. BED IN LOWEST POSTION, CALL SKINNER IN REACH, WILL CTM.
[2017-07-03 04:00] VITALS: BP 137/53
[2017-07-03 05:10] LABS: ANION GAP 20.8 mmol/L (8-16); CALCIUM 7.8 mg/dL (8.5-10.1); CREATININE - SERUM 1.2 mg/dL (0.6-1.3); POTASSIUM - SERUM 3.3 mmol/L (3.5-5.1)
[2017-07-03 05:20] LABS: CARBON DIOXIDE 18.5 mmol/L (21.0-32.0)
--- NOTE | 2017-07-03 06:00 | NUR ---
PT REPORTS FEELING THOUGH SHE IS "GOING TO EXPLODE." REPORTS PRESSURE AND PAIN IN HER ABDOMEN, SAYS IT FEELS LIKE "HORRIBLE GAS PAINS." GAVE MORPHINE AT 0515 THIS MORNING. EXPLAINED TO PT THAT PAIN MEDS CANNOT BE GIVEN BUT Q6HRS. VERBALIZED UNDERSTANDING. RR EVEN AND UNLABORED. WILL GIVE REPORT ON PT CONDITION FOR THE DAY.
--- NOTE | 2017-07-03 07:40 | NUR ---
AM ROUNDS - PT IS IN BED AND AWAKE. SCD ARE ON. LEFT CHEST INFUSAPORT WITH NS @ 100CC/HR. PT C/O NAUSEA BUT STATES SHE MAY JUST NEED TO PASS GAS. PT IS A&O. K+ IS 3.3 AND GIVEN 40MEQ. WILL RECHECK LAB IN 4 HOURS. BED AT LOWEST POSITION. SIDE RAILS UP X2. CALL SKINNER IN USE/REACH. WILL CONTINUE TO MONITOR
[2017-07-03 08:15] VITALS: BP 136/71
[2017-07-03 12:00] VITALS: BP 131/70
[2017-07-03 16:05] VITALS: BP 169/82
--- NOTE | 2017-07-03 16:43 | NUR ---
CHANGED PT'S LEFT CHEST INFUSAPORT DRESSING. DRESSING WAS A LITTLE SOILED. WILL CONTINUE TO MONITOR
--- NOTE | 2017-07-03 19:42 | NUR ---
MORPHINE 2 MG GIVEN AT PT REQUEST FOR C/O PAIN TO ABD. RATES PAIN AT AN 8 ON PAIN SCALE.
[2017-07-03 20:00] VITALS: BP 121/66
--- NOTE | 2017-07-03 20:42 | NUR ---
HS MEDS GIVEN, PTS ASLEEP IN CHAIR AT BED SIDE, BED LOW, CL IN REACH.
--- NOTE | 2017-07-03 23:27 | NUR ---
ENVIRONMENTAL ADVISER AT BEDSIDE TO OBTAIN VITALS, CALL LIGHT IN REACH. WILL CONTINUE WITH PLAN OF CARE.
--- NOTE | 2017-07-04 01:30 | NUR ---
RESTING WITH EYES CLOSED, RESPERATIONS EVEN, NO S/S DISTRESS NOTED.
--- NOTE | 2017-07-04 04:31 | NUR ---
AM LABS DRAWN VIA LEFT CHEST IFP. MORPHINE 2 MG GIVEN FOR C/O PAIN TO ABD. RATES PAIN AT AN 8 ON PAIN SCALE. ASLEEP AT BED SIDE.
[2017-07-04 05:00] VITALS: BP 134/73
[2017-07-04 05:08] LABS: BASOPHILS 0 % (0-2); EOSINOPHILS 0.2 % (0-7); HEMATOCRIT 31.7 % (36.0-48.0); HEMOGLOBIN 10.8 g/dL (12-16); IMMATURE GRANULOCYTES 0.5 % (0-5); LYMPHOCYTES 13.3 % (15-50); MCH 35.9 pg (26.0-34.0); MCHC 34.1 g/dL (31.0-37.0); MCV 105.3 fL (80.0-100.0); MEAN PLATELET VOLUME 9.5 fL (7.4-10.4); RBC 3.01 10x6/uL (4.00-5.40); RDW 17.2 % (11.5-14.5)
[2017-07-04 05:10] LABS: PLATELET COUNT 77 10x3/uL (130-400); WBC 6.2 10x3/uL (4.8-10.8)
[2017-07-04 05:42] LABS: PLATELET ESTIMATE DECREASED; PLATELET MORPHOLOGY NORMAL PLT MORPH
[2017-07-04 06:10] LABS: ALBUMIN 2.5 g/dL (3.4-5.0); ALKALINE PHOSPHATASE 173 U/L (46-116); ALT (SGPT) 91 U/L (10-68); BILIRUBIN - DIRECT 0.34 mg/dL (0.00-0.30); BILIRUBIN - INDIRECT 0.56 mg/dL (0.00-1.00); CALCIUM 8.4 mg/dL (8.5-10.1); CARBON DIOXIDE 21.7 mmol/L (21.0-32.0); CHLORIDE - SERUM 98 mmol/L (98-107); CREATINE KINASE 293 UL (21-215); CREATININE - SERUM 0.9 mg/dL (0.6-1.3); MAGNESIUM - SERUM 1.7 mg/dL (1.8-2.4); POTASSIUM - SERUM 3.7 mmol/L (3.5-5.1); PROTEIN - SERUM 5.7 g/dL (6.4-8.2); SODIUM 133 mmol/L (136-145); eGFR NON AFRICAN AMERICAN 66 mL/min (90-120)
[2017-07-04 06:17] LABS: CALC OSMOLALITY 263 mosm/kg (275-300); GLUCOSE 81 mg/dL (74-106); PHOSPHOROUS 0.7 mg/dL (2.5-4.9); UREA NITROGEN 10 mg/dL (7-18)
[2017-07-04 06:18] LABS: CKMB 5.5 U/L (0.0-3.6)
--- NOTE | 2017-07-04 06:29 | NUR ---
LAB CALLED AND REPORTED A LOW PHOS. OF 0.7, ELETROLYTE PROTOCOL IMPLEMENTED.
[2017-07-04 06:32] LABS: ERYTHROCYTE SEDIMENTATION RATE 17 mm/hr (0-30)
--- NOTE | 2017-07-04 07:40 | NUR ---
AM ROUNDS- PT IN BED, DENIES ANY NEEDS AT THIS TIME. IV BEEPING, NEW BAG OF FLUIDS HUNG AT THIS TIME. RESP EVEN AND UNLABORED. BED LOW AND WHEELS LOCKED, BEDSIDE RAILS X2, CALL LIGHT IN REACH, AT BEDSIDE, NAD NOTED, WILL CONTINUE TO MONITOR.
[2017-07-04 08:00] VITALS: BP 144/69
--- NOTE | 2017-07-04 08:31 | NUR ---
AM MEDS GIVEN ORDERED, 2MG OF MORPHINE GIVEN FOR PAIN LEVEL OF 8/10, ALSO 8MG OF ZOFRAN PER PT REQUEST. PT IN BED, DENIES ANY OTHER NEEDS AT THIS TIME. CALL LIGHT IN REACH, AT BEDSIDE, NAD NOTED, WILL CONTINUE TO MONITOR.
[2017-07-04 12:00] VITALS: BP 128/59
[2017-07-04 12:30] VITALS: Ht 167.6 cm; Wt 111.7 kg
[2017-07-04 13:55] LABS: CKMB 4.5 U/L (0.0-3.6); CREATINE KINASE 339 UL (21-215); TROPONIN-I 0.047 ng/mL (0.000-0.060)
--- NOTE | 2017-07-04 14:15 | NUR ---
EKG DONE AND SHOWED TO RY HEATH. RY STATED THAT SHE WAS MOSTLY INTERESTED IN TROPONIN LEVELS, THAT SHE DID NOT NEED ANYMORE EKG'S DONE AT THIS TIME.
[2017-07-04 16:00] VITALS: BP 125/71
[2017-07-04 16:12] LABS: ANION GAP 15.2 mmol/L (8-16); CALCIUM 8.1 mg/dL (8.5-10.1); CARBON DIOXIDE 22.3 mmol/L (21.0-32.0); POTASSIUM - SERUM 3.5 mmol/L (3.5-5.1)
[2017-07-04 16:37] LABS: PHOSPHOROUS 0.6 mg/dL (2.5-4.9)
--- NOTE | 2017-07-04 17:00 | NUR ---
2MG OF MORPHINE GIVEN FOR PAIN LEVEL OF 8/10, ALSO GAVE 8MG OF ZOFRAN PER PT REQUEST. PT DENIES ANY OTHER NEEDS AT THIS TIME. AT BEDSIDE, NAD NOTED, WILL CONTINUE TO MONITOR.
[2017-07-04 20:08] VITALS: BP 116/54
[2017-07-04 20:17] LABS: CKMB 3.1 U/L (0.0-3.6); CREATINE KINASE 276 UL (21-215); TROPONIN-I 0.039 ng/mL (0.000-0.060)
--- NOTE | 2017-07-04 20:51 | NUR ---
NIGHT TIME MEDS GIVEN ORDERED. PT IN BED, DENIES ANY NEEDS AT THIS TIME. CALL LIGHT IN REACH, FAMILY AT BEDSIDE, DENISA BRADY, WILL CONTINUE TO MONITOR.
--- NOTE | 2017-07-04 21:19 | NUR ---
2MG OF MORPHINE GIVEN FOR PAIN LEVEL OF 8/10. PT CLEANED FOR INCONT EPISODE. PT DENIES ANY NEEDS AT THIS TIME. CALL LIGHT IN REACH, NAD NOTED, WILL CONTINUE TO MONITOR.
--- NOTE | 2017-07-04 22:29 | NUR ---
PT IN BED, WITH EYES CLOSED, RESP EVEN AND UNLABORED. AT BEDSIDE, CALL LIGHT IN REACH, NAD NOTED, WILL CONTINUE TO MONITOR.
[2017-07-05 01:09] VITALS: BP 120/42
[2017-07-05 04:00] VITALS: BP 118/76
[2017-07-05 06:47] LABS: BASOPHILS 0.2 % (0-2); EOSINOPHILS 1.4 % (0-7); HEMATOCRIT 30.4 % (36.0-48.0); HEMOGLOBIN 10.3 g/dL (12-16); IMMATURE GRANULOCYTES 0.9 % (0-5); LYMPHOCYTES 16.8 % (15-50); MCH 35.8 pg (26.0-34.0); MCHC 33.9 g/dL (31.0-37.0); MCV 105.6 fL (80.0-100.0); MEAN PLATELET VOLUME 10.2 fL (7.4-10.4); MONOCYTES 10.8 % (2-11); NEUTROPHILS 69.9 % (40-80); RBC 2.88 10x6/uL (4.00-5.40); RDW 17.3 % (11.5-14.5); WBC 5.7 10x3/uL (4.8-10.8)
[2017-07-05 06:51] LABS: PLATELET COUNT 108 10x3/uL (130-400)
--- NOTE | 2017-07-05 07:00 | NUR ---
REPORT RECEIVED FROM OFF COMING NURSE. IN ROOM WITH PT. PT IN BED WATCHING TV WITH 0 S/SX OF DISTRESS/DISCOMFORT NOTED. IN ISOLATION PER ORDRES. SEE ASSESSMENT FLOW SHEET. BREATHING NORMAL AND UNLABORED. CALL LIGHT IN REACH.
[2017-07-05 07:33] LABS: CALC OSMOLALITY 269 mosm/kg (275-300); CARBON DIOXIDE 24.7 mmol/L (21.0-32.0); CHLORIDE - SERUM 101 mmol/L (98-107); CREATININE - SERUM 0.9 mg/dL (0.6-1.3); GLUCOSE 116 mg/dL (74-106); POTASSIUM - SERUM 3.2 mmol/L (3.5-5.1); SODIUM 136 mmol/L (136-145); UREA NITROGEN 4 mg/dL (7-18); eGFR NON AFRICAN AMERICAN 66 mL/min (90-120)
[2017-07-05 07:37] LABS: CKMB 1.6 U/L (0.0-3.6); CREATINE KINASE 184 UL (21-215); TROPONIN-I 0.028 ng/mL (0.000-0.060)
--- NOTE | 2017-07-05 07:45 | NUR ---
C/O ABD PAIN. PRN MORPHINE GIVEN. STATED HER ABD DRESSING IS CHRONIC. DRESSING C/D/I. MORPHINE EFFECTIVE WITH NO S/SX OF ASE NOTED. CALL LIGHT IN REACH. WILL CONT POC
[2017-07-05 07:47] LABS: PHOSPHOROUS 0.8 mg/dL (2.5-4.9)
--- NOTE | 2017-07-05 07:50 | NUR ---
PHOPHURS 0.8. AWARE AND INSTEAD OF DOING ELECTROLYTE PROTOCHOL, HE HAS NEW ORDERS. SEE ORDRES.
[2017-07-05 08:00] VITALS: BP 105/58
[2017-07-05 12:00] VITALS: BP 111/70
--- NOTE | 2017-07-05 14:56 | NUR ---
* Is the patient Alert and Oriented? Yes 0 * How many steps to enter\exit or inside your home? 0 0 * PCP Dr. Peraza 0 * Pharmacy [facility] 0 * Preadmission Environment Home with Family 0 * ADLs Partial Dependent 0 * Partial ADLs (Assistance needed) Ambulation 0 * Equipment Bedside Commode Cane Glucometer Hospital Bed Nebulizer Other Rolling Walker 0 * Other Equipment Electric WC 0 * List name and contact numbers for known caregivers / representatives who currently or will assist patient after discharge: Spouse - Tyrese [phone] 0 * Community resources currently utilized Home Health 0 * Please name any agencies selected above. [email or web address] in [place] 0 * Additional services required to return to the preadmission environment? No 0 * Can the patient safely return to the preadmission environment? Yes 0 * Has this patient been hospitalized within the prior 30 days at any hospital? No Patient Name: CALEB TELLEZ Admission Status: ER Accout number: [id number] Admission Date: 07-03-2017 : 1950 Admission Diagnosis:UNSPECIFIED ABDOMINAL PAIN Attending: MISAEL PERAZA Current LOS: 2 Planned Disposition: Home with Home Health Primary Insurance: MEDICARE A & B Discharge Planning Comments: CM met with patient to assess dc plans/needs. Patient states she lives at home with her , Tyrese. She reports she is currently on service with [email or web address]. She primarily uses a walker for ambulating, but also has a cane & electric wheelchair. At dc, she plans to return home with her and resume home health services. CM will follow & assist as needed. Sample Clerk: Bobbi Meléndez
[2017-07-05 16:00] VITALS: BP 100/51
--- NOTE | 2017-07-05 16:00 | NUR ---
C/O GAS. NOTIFIED. NEW ORDRES FOR SIMITHICONE. GIVEN WITH EFFECTIVESS.
[2017-07-05 17:39] LABS: CALCIUM 7.5 mg/dL (8.5-10.1); CARBON DIOXIDE 23.3 mmol/L (21.0-32.0); CREATININE - SERUM 0.9 mg/dL (0.6-1.3)
[2017-07-05 17:40] LABS: PHOSPHOROUS 2.8 mg/dL (2.5-4.9); POTASSIUM - SERUM 4.3 mmol/L (3.5-5.1)
--- NOTE | 2017-07-05 18:45 | NUR ---
REPORT GIVEN TO ON COMING NURSE. BREATHING NORMAL AND UNLABORED. 0 NEEDS VOICED AT THIS TIME. CALL LIGHT IN REACH.
[2017-07-05 19:00] VITALS: BP 108/55
[2017-07-06] VITALS: BP 104/57
[2017-07-06 04:00] VITALS: BP 114/66
[2017-07-06 06:21] LABS: BASOPHILS 0.2 % (0-2); EOSINOPHILS 2.6 % (0-7); HEMATOCRIT 27.2 % (36.0-48.0); IMMATURE GRANULOCYTES 1.4 % (0-5); LYMPHOCYTES 17.7 % (15-50); MCH 35.4 pg (26.0-34.0); MCHC 33.1 g/dL (31.0-37.0); MCV 107.1 fL (80.0-100.0); MEAN PLATELET VOLUME 9.4 fL (7.4-10.4); MONOCYTES 11.4 % (2-11); NEUTROPHILS 66.7 % (40-80); PLATELET COUNT 123 10x3/uL (130-400); RBC 2.54 10x6/uL (4.00-5.40); RDW 18.2 % (11.5-14.5); WBC 5.1 10x3/uL (4.8-10.8)
--- NOTE | 2017-07-06 07:00 | NUR ---
REPORT RECIEVD FROM OFF COMING NURSE. SEE ASSESSMENT FLOW SHEET. AT BED SIDE WITH PT. C/O ABD PRESSURE. "IM JUST SO GASSY." PRN SIMITHICONE WITH EFFECTIVNESS ALONG WITH MORPHINE WITH NO ASE NOTED. MAGNESSIUM LVL 1.8. ELECTROLYTE PROTOCOL. FIRST BACK HUNG PER ORDRES. CALL LIGHT INR EACH. WILL CONT POC
[2017-07-06 07:35] LABS: CALCIUM 7.5 mg/dL (8.5-10.1); CARBON DIOXIDE 23.4 mmol/L (21.0-32.0); CREATININE - SERUM 0.9 mg/dL (0.6-1.3); MAGNESIUM - SERUM 1.2 mg/dL (1.8-2.4); PHOSPHOROUS 2.9 mg/dL (2.5-4.9)
[2017-07-06 07:36] LABS: POTASSIUM - SERUM 3.4 mmol/L (3.5-5.1)
[2017-07-06 08:18] VITALS: BP 99/81
[2017-07-06 11:34] VITALS: BP 122/70
--- NOTE | 2017-07-06 12:00 | NUR ---
PT HAS LISSETH AMBULATING WITH PT. NO CHANGES FROM PREVIOUS ASSESSMENT. CALL LIGHT IN REACH. WILL CONT POC
[2017-07-06 15:50] VITALS: BP 141/74
--- NOTE | 2017-07-06 18:45 | NUR ---
REPORT GIVEN TO ON COMING NURSE. PT BREATHING NORMAL AND UNLABORED. WILL CONT POC
[2017-07-06 19:00] VITALS: BP 106/62
--- NOTE | 2017-07-06 19:46 | NUR ---
RESUMED CARE OF PT, LYING IN BED RESPIRATIONS EVEN AND UNLABORED ON ROOM AIR. REQUESTS PAIN MEDICATION. MORPHINE HAS BEEN DISCONTINUED, RY HEATH PAGED. AWAITING CALL BACK. 100 SR ON TELEMETRY. LEFT INFUSAPORT INFUSING NS WITH 30 OF POTASSIUM @ 30. CALL LIGHT IN REACH. WILL CONTINUE TO MONITOR. SEE NURSE ASSESSMENT.
[2017-07-07] VITALS: BP 114/64
--- NOTE | 2017-07-07 02:51 | NUR ---
CALL LIGHT IN REACH. WILL CONTINUE WITH PLAN OF CARE. WILL CONTINUE TO MONITOR.
[2017-07-07 04:00] VITALS: BP 110/74
[2017-07-07 05:40] LABS: BASOPHILS 0.1 % (0-2); EOSINOPHILS 1.7 % (0-7); HEMOGLOBIN 10.3 g/dL (12-16); IMMATURE GRANULOCYTES 0.4 % (0-5); LYMPHOCYTES 9.9 % (15-50); MCH 35.8 pg (26.0-34.0); MCHC 33.2 g/dL (31.0-37.0); MCV 107.6 fL (80.0-100.0); MEAN PLATELET VOLUME 9.5 fL (7.4-10.4); MONOCYTES 15.2 % (2-11); NEUTROPHILS 72.7 % (40-80); PLATELET COUNT 144 10x3/uL (130-400); RBC 2.88 10x6/uL (4.00-5.40)
[2017-07-07 05:51] LABS: CALCIUM 7.3 mg/dL (8.5-10.1); CHLORIDE - SERUM 102 mmol/L (98-107); CREATININE - SERUM 0.8 mg/dL (0.6-1.3); PHOSPHOROUS 3.2 mg/dL (2.5-4.9); POTASSIUM - SERUM 3.3 mmol/L (3.5-5.1); SODIUM 136 mmol/L (136-145); eGFR NON AFRICAN AMERICAN 76 mL/min (90-120)
[2017-07-07 05:52] LABS: CALC OSMOLALITY 267 mosm/kg (275-300); GLUCOSE 87 mg/dL (74-106); UREA NITROGEN 5 mg/dL (7-18)
--- NOTE | 2017-07-07 06:32 | NUR ---
MORPHINE 2MG IVP GIVEN FOR ABDOMINAL PAIN AND RIGHT RIB PAIN (STATES THIS IS A NEW PAIN). CALL LIGHT IN REACH. WILL CONTINUE TO MONITOR.
--- NOTE | 2017-07-07 07:35 | NUR ---
0715-AM ROUNDING DONE WITH PATIENT WATCHING TV, SPOUSE AT BEDSIDE. IN ENTERIC ISOLATION AT PRESENT. ON HEART MONITOR SHOWING ST, HR 102. ON ROOM AIR. LEFT IP WITH NS W 20K INFUSING AT 30 CC/HR. BILTERAL SCD'S IN USE. IN REPORT, WAS TOLD OF LOWER ABDOMINAL DRESSING, WILL ADDRESS THIS WITH ASSESSMENT. WILL CPOC.
--- NOTE | 2017-07-07 08:29 | NUR ---
COMPLAINTS OF NAUSEA, ZOFRAN 8 MG GIVEN
[2017-07-07 09:12] VITALS: BP 136/76
--- NOTE | 2017-07-07 09:35 | NUR ---
URINE SENT TO LAB ORDERED.
--- NOTE | 2017-07-07 09:49 | NUR ---
0830-REPLACED K+ WITH LIQUID PER PROTOCOL. PATIENT STATES THAT SHE DOES NOT FEEL WELL TODAY YESTERDAY. REPORTS THAT HER ARMS AND JOINTS ARE HURTING, "CRAMPING LIKE". NO MAGNESIUM WAS SEEN TODAY, ORDERED. WILL AWAIT RESULTS.
--- NOTE | 2017-07-07 10:15 | NUR ---
MAG LEVEL IS 1.9 THIS AM.
--- NOTE | 2017-07-07 11:06 | NUR ---
COMPLAINTS OF BACK PAIN, MORPHINE SULFATE 2 MG GIVEN SLOW IVP PER REQUEST. PATIENT TO STATES THAT HER HEAD AND EARS FEEL BETTER NOW.
[2017-07-07 11:33] VITALS: BP 121/69
--- NOTE | 2017-07-07 13:15 | NUR ---
RE-DRAW OF K+ LEVEL FROM LEFT IP. FLUSHED WELL WITH NS PAST THIS DRAW. COMPLETE BED BATH AND LINEN CHANGE DONE.
--- NOTE | 2017-07-07 13:37 | NUR ---
RE-DRAWN K+ IS 3.6. THIS IS RELAYED TO THE PATIENT.
--- NOTE | 2017-07-07 13:56 | NUR ---
Nutrition Follow Up: Chart reviewed. Pt is eating 81% meal avg on a regular soft diet. Wt gain since admit noted. +BM 07/06/17. Labs reviewed. Meds noted. Rec continue current diet. RD following.
[2017-07-07 16:13] VITALS: BP 123/72
--- NOTE | 2017-07-07 16:27 | NUR ---
1613-RATING PAIN 8/10 TO ABDOMINAL AREA. MORPHINE SULFATE 2 MG GIVEN WITH NS 7 CC.
--- NOTE | 2017-07-07 17:56 | NUR ---
SPOUSE BACK AT BEDSIDE. PATIENT DENIES NEEDS. WILL CONTINUE TO MONITOR.
--- NOTE | 2017-07-07 22:49 | NUR ---
PT IN BED AT BEDSIDE BOTH WATCHING TELEVISION DENIES NEEDS AT THIS TIME WILL CONTINUE TO MONITOR
[2017-07-08] VITALS: BP 111/71
[2017-07-08 04:00] VITALS: BP 105/57
[2017-07-08 06:14] LABS: HEMATOCRIT 31.4 % (36.0-48.0); HEMOGLOBIN 10.3 g/dL (12-16); MCH 35.8 pg (26.0-34.0); MCHC 32.8 g/dL (31.0-37.0); MEAN PLATELET VOLUME 9.8 fL (7.4-10.4); PLATELET COUNT 155 10x3/uL (130-400); RBC 2.88 10x6/uL (4.00-5.40); RDW 19.5 % (11.5-14.5)
[2017-07-08 06:15] LABS: WBC 4.5 10x3/uL (4.8-10.8)
[2017-07-08 06:27] LABS: ANION GAP 11.7 mmol/L (8-16); CALCIUM 7.9 mg/dL (8.5-10.1); CARBON DIOXIDE 25.1 mmol/L (21.0-32.0); CREATININE - SERUM 0.9 mg/dL (0.6-1.3); PHOSPHOROUS 3.1 mg/dL (2.5-4.9); POTASSIUM - SERUM 3.8 mmol/L (3.5-5.1)
--- NOTE | 2017-07-08 07:46 | NUR ---
AM ROUNDING DONE WITH PATIENT IN ENTERIC ISOLATION. SPOUSE HERE AT BEDSIDE. PATIENT REPORTS THAT SHE FEELS SO MUCH BETTER TODAY THAN YESTERDAY. ON HEART MONITOR SHOWING ST, HR 107. NS W 20K INFUSING TO LEFT IP AT 50 CC/HR. ON ROOM AIR. BILATERAL SCD'S ARE ON AND IN USE CORRECTLY. WILL CPOC.
[2017-07-08 07:57] LABS: EOSINOPHILS 3 % (0-7); LYMPHOCYTES 16 % (15-50); MONOCYTES 22 % (2-11); NEUTROPHILS 57 % (40-80); PLATELET ESTIMATE NORMAL
[2017-07-08 07:59] VITALS: BP 112/67
--- NOTE | 2017-07-08 10:04 | NUR ---
COMPLAINTS OF PAIN TO ABDOMEN AREA 06/16. MORPHINE SULFATE 2 MG GIVEN ALONG WITH 1 OF 2 MAG TABS.
[2017-07-08 11:52] VITALS: BP 108/61
[2017-07-08] MEDS ORDERED: OMNICEF300 MG PO (13:16)
[2017-07-08] MEDS ORDERED: FLAGYL500 MG PO (13:16)
--- NOTE | 2017-07-08 14:00 | NUR ---
PAGE INTO LEV MCDERMOTT PATIENT HAS BEEN DISCHARGED AND SHE IS ASKING FOR HER IV PAIN MEDICATION. AWAITING CALL BACK, I EXPLAINED TO PATIENT AND THAT WHEN WE HAVE A DISCHARGE ORDER THE IV PAIN MEDICATION STOPS.
--- NOTE | 2017-07-08 14:24 | NUR ---
CALL RECEIVED FROM LEV MCDERMOTT AND WE ARE NOT GOING TO GIVE THE IV PAIN MEDICATION. THIS IS RELAYED TO THE PATIENT AND HER .
--- NOTE | 2017-07-08 15:20 | NUR ---
HEPARIN FLUSH TO LEFT IP PAST FLUSHING WITH 10 CC NS. BATISTA NEEDLE REMOVED, 2 X 2 AND OPSITE PLACED. PATIENT IS GETTING DRESSED FOR DISCHARGE.
--- NOTE | 2017-07-08 15:39 | NUR ---
VERBAL AND WRITTEN DISCHARGE INSTRUCTIONS GIVEN TO PATIENT AND SPOUSE. DISCHARGED HOME VIA WHEELCHAIR.
== END 2017-07-08 15:44 | disposition home health service (06) | DRG 683 ==
LOC: D.ER 13:24 → D.M2 20:38 → OBSVTIME 20:38 → D.M2 07-03 14:19
PROVIDERS: Emergency Medicine; Family Medicine; Internal Medicine Nephrology; ADMIT Family Medicine
PROC: 0T9B70Z Drainage of Bladder with Drainage Device, Via Natural or Artificial Opening (ICD-10-PCS; principal; 2017-07-02)
DX: N17.0 Acute kidney failure with tubular necrosis (principal); E87.1 Hypo-osmolality and hyponatremia; E86.0 Dehydration; E03.9 Hypothyroidism, unspecified; I10 Essential (primary) hypertension; E87.6 Hypokalemia; M35.00 Sjogren syndrome, unspecified; D69.6 Thrombocytopenia, unspecified; M32.9 Systemic lupus erythematosus, unspecified; D86.9 Sarcoidosis, unspecified

== ENCOUNTER 2017-08-09 12:11 | Inpatient (IN) | payer MEDICARE, OTHER ==
[2017-08-09 12:45] LABS: BASOPHILS 0.1 % (0-2); EOSINOPHILS 0.4 % (0-7); HEMATOCRIT 39.1 % (36.0-48.0); HEMOGLOBIN 14.4 g/dL (12-16); IMMATURE GRANULOCYTES 0.3 % (0-5); LYMPHOCYTES 16.7 % (15-50); MCHC 36.8 g/dL (31.0-37.0); MCV 95.1 fL (80.0-100.0); MEAN PLATELET VOLUME 9.9 fL (7.4-10.4); MONOCYTES 11.7 % (2-11); NEUTROPHILS 70.8 % (40-80); PLATELET COUNT 180 10x3/uL (130-400); RBC 4.11 10x6/uL (4.00-5.40); RDW 15.8 % (11.5-14.5); WBC 7.7 10x3/uL (4.8-10.8)
[2017-08-09 13:02] LABS: ALBUMIN 2.4 g/dL (3.4-5.0); ALKALINE PHOSPHATASE 292 U/L (46-116); ALT (SGPT) 84 U/L (10-68); AMYLASE - SERUM 18 U/L (25-115); BILIRUBIN - TOTAL 0.74 mg/dL (0.2-1.3); CALC OSMOLALITY 245 mosm/kg (275-300); CALCIUM 7.8 mg/dL (8.5-10.1); CARBON DIOXIDE 23.9 mmol/L (21.0-32.0); CHLORIDE - SERUM 86 mmol/L (98-107); CREATININE - SERUM 0.6 mg/dL (0.6-1.3); GLUCOSE 119 mg/dL (74-106); LIPASE 102 U/L (73-393); PROTEIN - SERUM 6.2 g/dL (6.4-8.2); SODIUM 123 mmol/L (136-145); UREA NITROGEN 3 mg/dL (7-18); eGFR NON AFRICAN AMERICAN > 90 mL/min (90-120)
[2017-08-09 13:16] LABS: POTASSIUM - SERUM 2.5 mmol/L (3.5-5.1)
[2017-08-09 13:59] LABS: APPEARANCE CLEAR (CLEAR); BILIRUBIN NEGATIVE (NEGATIVE); COLOR YELLOW (YELLOW); GLUCOSE NEGATIVE (NEGATIVE); KETONE NEGATIVE (NEGATIVE); NITRITE NEGATIVE (NEGATIVE); PROTEIN NEGATIVE (NEGATIVE); UROBILINOGEN NORMAL (NORMAL)
--- NOTE | 2017-08-09 19:23 | NUR ---
PT IN BED AT BEDSIDE. DENIES NEEDS AT THIS TIME.
[2017-08-10 01:10] VITALS: BP 170/96; BMI 35.6
--- NOTE | 2017-08-10 01:28 | NUR ---
CRABBER ASSESSMENT COMPLETE. PT AWAKE, ALERT, ORIENTED, GOOD HEALTH HISTORIAN, REQUESTING MORPHINE FOR PAIN. PT STATES THE DIARRHEA SHE IS HAVING FEELS SIMILAR TO WHEN SHE HAD C-DIFF RECENTLY. PT DENIES ANY OTHER NEEDS. WILL PLACE TELEMETRY AND SCD'S, AND ADDED A WOUND CARE CONSULT. CONTINUE TO MONITOR PT CLOSELY. BED LOW, CALL LIGHT IN REACH, SIDE RAILS X 2, HOB 20 DEGREES.
--- NOTE | 2017-08-10 02:36 | NUR ---
PORT ACCESSED BY CALEB PINEDA AND JENNIFER PINEDA AT THIS TIME. FOLLOWING PORT ACCESS NAUSEA AND PAIN MEDICATION ADMINISTERED PER PT REQUEST.
--- NOTE | 2017-08-10 05:05 | NUR ---
PT'S BEDSIDE CORK GRINDER ASKED ME TO LOOK AT PT'S PORT SITE, WHICH WAS ACCESSED BY ANOTHER RN EARLIER IN THE SHIFT. WHEN ROBBIN THE CORK GRINDER STARTED USING THE PORT FOR MEDS, THE PT COMPLAINED OF SIGNIFICANT PAIN IN THE SITE. I DEACCESSED HER AND REACCESSED HER WITH 19G 1.5INCH KIT. PT STATED THAT THE SITE WAS A BIT SORE, BUT THAT IT FELT MUCH BETTER. PORT PATENT AND FLUSHING WELL. WILL MONITOR.
[2017-08-10 05:51] LABS: BASOPHILS 0.1 % (0-2); EOSINOPHILS 0.1 % (0-7); HEMATOCRIT 40.2 % (36.0-48.0); HEMOGLOBIN 14.3 g/dL (12-16); IMMATURE GRANULOCYTES 0.2 % (0-5); LYMPHOCYTES 5.9 % (15-50); MCH 34.9 pg (26.0-34.0); MCHC 35.6 g/dL (31.0-37.0); MEAN PLATELET VOLUME 9.6 fL (7.4-10.4); MONOCYTES 6.1 % (2-11); NEUTROPHILS 87.6 % (40-80); PLATELET COUNT 156 10x3/uL (130-400); RDW 15.9 % (11.5-14.5)
[2017-08-10 06:10] LABS: WBC 13.7 10x3/uL (4.8-10.8)
[2017-08-10 06:36] LABS: ALBUMIN 2.3 g/dL (3.4-5.0); BILIRUBIN - TOTAL 1.19 mg/dL (0.2-1.3); CALCIUM 7.3 mg/dL (8.5-10.1); CARBON DIOXIDE 26.2 mmol/L (21.0-32.0); PROTEIN - SERUM 5.9 g/dL (6.4-8.2)
[2017-08-10 06:42] LABS: CREATININE - SERUM 0.9 mg/dL (0.6-1.3)
[2017-08-10 06:43] LABS: ANION GAP 15.8 mmol/L (8-16)
[2017-08-10 07:51] VITALS: BP 154/99
--- NOTE | 2017-08-10 08:26 | NUR ---
SCD'S ON BILATERAL LE
[2017-08-10 09:43] VITALS: BMI 35.5
[2017-08-10 12:00] VITALS: BP 154/99
[2017-08-10] MEDS ORDERED: PERCOCET 10/3251 TA1 PO (13:17)
--- NOTE | 2017-08-10 14:27 | NUR ---
ALERT AND ORIENTED X4. RESTING IN BED. COMPLAINS OF LT ARM PAIN RADIATING DOWN ARM. NOTIFIED. EKG COMPLETE PLACED ON CHART. ONE TIME DOSE MORPHINE GIVEN PER ORDER. CONTINUE PLAN OF CARE AND SAFETY PRECAUTIONS. SINUS TACH 117bpm ON TELEMETRY.
[2017-08-10 15:10] LABS: CALC OSMOLALITY 255 mosm/kg (275-300); CALCIUM 7.5 mg/dL (8.5-10.1); CARBON DIOXIDE 26.6 mmol/L (21.0-32.0); CHLORIDE - SERUM 92 mmol/L (98-107); CREATININE - SERUM 0.7 mg/dL (0.6-1.3); GLUCOSE 133 mg/dL (74-106); SODIUM 128 mmol/L (136-145); UREA NITROGEN 4 mg/dL (7-18); eGFR NON AFRICAN AMERICAN 88 mL/min (90-120)
[2017-08-10 15:14] LABS: POTASSIUM - SERUM 2.9 mmol/L (3.5-5.1)
[2017-08-10 15:32] VITALS: BP 130/87
[2017-08-10 16:00] VITALS: BP 130/87
[2017-08-10 16:49] LABS: CKMB 4.9 U/L (0.0-3.6); CREATINE KINASE 106 UL (21-215)
[2017-08-10 16:58] LABS: TROPONIN-I 0.453 ng/mL (0.000-0.060)
--- NOTE | 2017-08-10 17:08 | NUR ---
ALERT AND ORIENTED X4. RESTING IN BED. CRITICAL TROPONIN 0.453 AND POTASSIUM 2.9 CALLED TO RACHAEL LAWN. RESULTS GIVEN VERBALLY TO RY HEATH APN. CARDIOLOGY CONSULTED. ELECTROLYTE PROTOCOL FOLLOWED FOR LOW POTASSIUM. SINUS TACH 133bpm ON TELEMETRY. LT ARM PAIN RESOLVED. COMPLAINS OF ABDOMINAL PAIN. FOLLOW PAIN MANAGEMENT PER ORDER. CONTINUE PLAN OF CARE. BED LOCKED AND LOW. CALL LIGHT IN REACH. THREE SIDERAILS UP PER PATIENT REQUEST. BED ALARM ON.
--- NOTE | 2017-08-10 19:35 | NUR ---
PT IS SITTING IN BED, STATED NAUSEOUS AND STILL IN PAIN. PT WAS GIVEN PAIN MED AT 1914 BY NURSE ZAFAR. ADVISED PT NOT DUE UNTIL 2329, ENCOURAGED PT TO CHANGE PSOITIONS. NO OTHER NEEDS AT THIS TIME, MONITOR PT HR AND PAIN STATUS
--- NOTE | 2017-08-10 19:40 | NUR ---
RECIEVED REPORT FROM MONITORS PT HAS A RUN OF 7PT HR 164 RECIEVED RAPPORT PT EDUARD ELEVATED WILL SEE WHAT NEXT LEVEL IS
[2017-08-10 20:00] VITALS: BP 116/78
[2017-08-10 20:21] LABS: CKMB 3.8 U/L (0.0-3.6); CREATINE KINASE 83 UL (21-215)
[2017-08-10 20:23] LABS: TROPONIN-I 0.261 ng/mL (0.000-0.060)
--- NOTE | 2017-08-10 20:48 | NUR ---
RECEIVED MESSAGE FROM MIRIAM MALIN THAT PT HAS A RUN OF 16 AND 10 PT STATED VERY NAUSEOUS LUCIA RAZA
--- NOTE | 2017-08-10 23:10 | NUR ---
SPOKE TO DR VILLELA AND RELAYED CONSULT ORDERED FOR PT AND THAT SHE HAS RUN SEVERAL STRIPS SINCE WE LAUREN ON SHIFT. RUN OF 7, THEN 16 AND 10 PT'S TROPONIN AT 1940 WAS SLIGHTLY ELEVATED AT 0.261 K+ 2.9. PER DR VILLELA START 30MG OF K= NOW, AT 1 AND AT 5 AND START 2MG MAGNESIUM
--- NOTE | 2017-08-11 00:22 | NUR ---
STARTED PT MAGNESIUM AT 2355 PENDING PLODDING MACHINE OPERATOR TO PULL K+
--- NOTE | 2017-08-11 01:15 | NUR ---
PT C/O PAIN ON BACKSIDE OF LEFT SHOULDER, PT WAS LYING ON REMOTE CONTROL AND POSSIBLE CORD ASSOCIATED WITH PAIN, CONTINUE TO MONITOR PATIENT
--- NOTE | 2017-08-11 02:07 | NUR ---
CALL LIGHT IN REACH, WILL CONTINUE WITH PLAN OF CARE.
[2017-08-11 03:10] LABS: CKMB 2.9 U/L (0.0-3.6); CREATINE KINASE 96 UL (21-215)
[2017-08-11 03:11] LABS: TROPONIN-I 0.212 ng/mL (0.000-0.060)
[2017-08-11 04:00] VITALS: BP 104/77; BP 107/77
--- NOTE | 2017-08-11 04:12 | NUR ---
PT IS RESTING WELL, LYING ON RT SIDE WITH EVEN RISE AND FALL OF CHEST. PENDING LAB WORK RESULTS
[2017-08-11 05:53] LABS: BASOPHILS 0.1 % (0-2); EOSINOPHILS 1.3 % (0-7); HEMATOCRIT 38.5 % (36.0-48.0); HEMOGLOBIN 13.4 g/dL (12-16); IMMATURE GRANULOCYTES 0.2 % (0-5); LYMPHOCYTES 15.8 % (15-50); MCH 35.2 pg (26.0-34.0); MCHC 34.8 g/dL (31.0-37.0); MEAN PLATELET VOLUME 9.8 fL (7.4-10.4); MONOCYTES 4.6 % (2-11); PLATELET COUNT 150 10x3/uL (130-400); RBC 3.81 10x6/uL (4.00-5.40); RDW 16.2 % (11.5-14.5)
[2017-08-11 06:18] LABS: ALBUMIN 2.1 g/dL (3.4-5.0); ANION GAP 13.1 mmol/L (8-16); BILIRUBIN - TOTAL 0.97 mg/dL (0.2-1.3); CALCIUM 7.4 mg/dL (8.5-10.1); CARBON DIOXIDE 26.6 mmol/L (21.0-32.0); PROTEIN - SERUM 5.6 g/dL (6.4-8.2)
[2017-08-11 06:20] LABS: CREATININE - URINE 30.6 mg/dL (30-125); PRO/CRE RATIO URINE 0.9 mg/g; PROTEIN - URINE 27.2 mg/dL (0.0-11.9)
[2017-08-11 06:25] LABS: CREATININE - SERUM 0.9 mg/dL (0.6-1.3); POTASSIUM - SERUM 3.7 mmol/L (3.5-5.1)
[2017-08-11 06:25] LABS: APPEARANCE CLOUDY (CLEAR); BILIRUBIN NEGATIVE (NEGATIVE); COLOR YELLOW (YELLOW); GLUCOSE NEGATIVE (NEGATIVE); KETONE NEGATIVE (NEGATIVE); NITRITE POSITIVE (NEGATIVE); PROTEIN NEGATIVE (NEGATIVE); UROBILINOGEN NORMAL (NORMAL)
[2017-08-11 06:27] LABS: BACTERIA MANY /hpf (NONE SEEN); EPITHELIAL CELLS 0-5 /hpf (0-5); RED CELLS - URINE 0-5 /hpf (0-5); WHITE CELLS - URINE >50 /hpf (0-5)
--- NOTE | 2017-08-11 06:28 | NUR ---
LAB WORK POSTED PT K+ IS 3.7. PT STATES FEELS A LOT BETTER, BED IN LOW POSITION, CALL LIGHT IN REACH. NO SIGNS OF DISTRESS.
--- NOTE | 2017-08-11 07:53 | NUR ---
RECIEVED REPORT ON PATIENT, PATIENT IS ALERT AND ORIENTED AT THIS TIME. PATIENT HAS A L CHEST IV WITH NS 20KCL INFUSING AT 100ML/HR. PATIENT IS ST ON MONITOR WITH A RATE OF 118. PATIENT DENIES ANY PAIN OR NEEDS AT THIS TIME, BED IS LOW AND LOCKED. CALL LIGHT IN REACH. CPOC
[2017-08-11 08:00] VITALS: BP 108/73
--- NOTE | 2017-08-11 09:55 | NUR ---
COUNTY ATTORNEY STATED PATIENT HAVING A 6 RUN OF VTACH, PATIENT SITTING UP IN BED, DENIES ANY CHEST PAIN OR ANYTHING. BP 122/82 HR 114 RR 20. WILL CONT TO MONITOR PATIENT. AND NOTIFIY DR. MITCHELL
--- NOTE | 2017-08-11 10:14 | NUR ---
PATIENT GIVEN PHENAGREN IM AND PERCOCET FOR PAIN AND NAUSEA. PATIENT DENIES ANY OTHER NEEDS. BED LOW AND LOCKED. CPOC
[2017-08-11 12:00] VITALS: BP 114/74
--- NOTE | 2017-08-11 12:36 | NUR ---
UNIT NURSE STATED PATIENT HAVING ANOTHER RUN OF VTACH, PATIENT ORIENTED, VS STABLE. NO CHEST PAIN. WILL CONT TO MONITOR. CPOC
--- NOTE | 2017-08-11 13:00 | NUR ---
SPOKE WITH DR SANTIAGO REGARDING PATIENT HAVING RUNS OF VTACH, HE STATED TO KEEP MONITORING PATIENT, AND ORDER 2 GRAM OF MAG SULFATE IV X1. WILL GIVE. WILL CONT TO MONITOR PATIENT. CPOC
[2017-08-11 14:18] LABS: HEPATITIS C ANTIBODY <0.1 (0.0-0.9)
--- NOTE | 2017-08-11 15:00 | NUR ---
PATIENT RESTING, AROUSES TO VOICE DENIES ANY NEEDS. CPOC
[2017-08-11 16:00] VITALS: BP 98/63
--- NOTE | 2017-08-11 17:45 | NUR ---
PATIENT EATING DINNER, DENIES ANY NEEDS OR PAIN. BED IS LOW AND LOCKED. CALL LIGHT IN REACH. CPOC
--- NOTE | 2017-08-11 18:22 | NUR ---
CALLED TO PATIENT ROOM, PATIENT SHOWED ME HER L BREAST, WHICH IS SWOLLEN AND RED. LOOKS TO BE THAT HER PORT IS INFILTRATED. WILL DC PORT. AND TRY TO REACCESS. CPOC
--- NOTE | 2017-08-11 18:48 | NUR ---
PATIENT PORT DEACCESSED AT THIS TIME. DUE TO INFILTRATION. CPOC
[2017-08-11 19:00] VITALS: BP 119/71
--- NOTE | 2017-08-12 01:13 | NUR ---
ASSISTED PT TO BATHROOM AT THIS TIME. PT DENIES ANY NEEDS.
--- NOTE | 2017-08-12 03:40 | NUR ---
CALL LIGHT IN REACH, WILL CONTINUE WITH PLAN OF CARE.
[2017-08-12 04:00] VITALS: BP 119/70
[2017-08-12 05:45] LABS: BASOPHILS 0.2 % (0-2); EOSINOPHILS 3.9 % (0-7); HEMATOCRIT 32.5 % (36.0-48.0); HEMOGLOBIN 10.9 g/dL (12-16); IMMATURE GRANULOCYTES 0.3 % (0-5); LYMPHOCYTES 28.6 % (15-50); MCH 34.5 pg (26.0-34.0); MCHC 33.5 g/dL (31.0-37.0); MCV 102.8 fL (80.0-100.0); MEAN PLATELET VOLUME 10.4 fL (7.4-10.4); MONOCYTES 5.4 % (2-11); NEUTROPHILS 61.6 % (40-80); PLATELET COUNT 121 10x3/uL (130-400); RBC 3.16 10x6/uL (4.00-5.40); RDW 16.7 % (11.5-14.5)
[2017-08-12 06:11] LABS: ALBUMIN 1.9 g/dL (3.4-5.0); ALKALINE PHOSPHATASE 179 U/L (46-116); ALT (SGPT) 56 U/L (10-68); CALCIUM 7.4 mg/dL (8.5-10.1); CARBON DIOXIDE 26.5 mmol/L (21.0-32.0); CHLORIDE - SERUM 101 mmol/L (98-107); CREATININE - SERUM 0.8 mg/dL (0.6-1.3); GLUCOSE 72 mg/dL (74-106); MAGNESIUM - SERUM 1.6 mg/dL (1.8-2.4); PHOSPHOROUS 1.9 mg/dL (2.5-4.9); POTASSIUM - SERUM 3.7 mmol/L (3.5-5.1); PROTEIN - SERUM 4.6 g/dL (6.4-8.2); SODIUM 121 mmol/L (136-145); eGFR NON AFRICAN AMERICAN 76 mL/min (90-120)
[2017-08-12 06:17] LABS: CALC OSMOLALITY 240 mosm/kg (275-300); UREA NITROGEN 7 mg/dL (7-18)
--- NOTE | 2017-08-12 07:00 | NUR ---
RECIEVED REPORT ON PATIENT, PATIENT IS ALERT AND ORIENTED AT THIS TIME. PATIENT HAS A R UPPER ARM IV THAT IS LS AT THIS TIME. PATIENT IS ST ON MONITOR WITH A RTAE OF 104. PATIENT DENIES ANY NEEDS AT THIS TIME. INFORMED PATIENT HER NA IS 121 AND SHE CAN NOT HAVE ANY FREE WATER TODAY. STATES UNDERSTANDING. WILL CONT TO MONITOR. CPOC
[2017-08-12 08:00] VITALS: BP 114/62
--- NOTE | 2017-08-12 09:00 | NUR ---
MORNING MEDICATION GIVEN, ASSESSMENT DONE. FOLLOWING ELECTROLYTE PROTOCOL. PATIENT DENIES ANY NEEDS. CPOC
--- NOTE | 2017-08-12 10:00 | NUR ---
MORPHINE GIVEN FOR PAIN. PATIENT DENIES ANY OTHER NEEDS AT THIS TIME. SR ON MONITOR RAT EOF 97. WILL CONT TO MONITOR. CPOC
[2017-08-12 11:18] LABS: ANA REFLEX - DIRECT Negative (Negative); IMMUNOGLOBULIN A 172 mg/dL (87-352); IMMUNOGLOBULIN G 762 mg/dL (700-1600); IMMUNOGLOBULIN M 584 mg/dL (26-217)
[2017-08-12 11:18] LABS: OSMOLALITY - URINE 136 (())
[2017-08-12 12:00] VITALS: BP 110/71
[2017-08-12 12:00] LABS: CALC OSMOLALITY 264 mosm/kg (275-300); CALCIUM 7.5 mg/dL (8.5-10.1); CHLORIDE - SERUM 101 mmol/L (98-107); CREATININE - SERUM 0.8 mg/dL (0.6-1.3); GLUCOSE 83 mg/dL (74-106); POTASSIUM - SERUM 3.9 mmol/L (3.5-5.1); SODIUM 134 mmol/L (136-145); UREA NITROGEN 7 mg/dL (7-18); eGFR NON AFRICAN AMERICAN 76 mL/min (90-120)
--- NOTE | 2017-08-12 12:00 | NUR ---
PATIENT EATING LUNCH AT THIS TIME, PATIENT C/O TENERDENESS IN BREAST. L BREAST IS RED, HER PORT INFILTRATED, AND HAS IRRIATED AREA. GAVE HER A HEAT PACK TO HELP REASORB FLUID. WILL CONT TO MONITOR. SR ON MONITOR WITH A RATE OF 99. CPOC
--- NOTE | 2017-08-12 12:15 | NUR ---
PORT DEACCESSED. VASCULAR NURSE IS GOING TO COME ASSESS PORT. CPOC
--- NOTE | 2017-08-12 14:18 | NUR ---
PATIENT RESTING AT THIS TIME. DENIES ANY NEEDS. CPOC
[2017-08-12 15:39] VITALS: BP 118/66
--- NOTE | 2017-08-12 17:30 | NUR ---
PATIENT EATING DINNER, DENIES ANY NEEDS. CPOC. BED LOW AND LOCKED CALL LIGHT IN REACH. SR RATE OF 97.
--- NOTE | 2017-08-12 18:32 | NUR ---
PATIENT SITTING UP IN BED, AT BEDSIDE. PATIENT DENIES ANY NEEDS. CPOC
[2017-08-12 19:00] VITALS: BP 117/78
[2017-08-12 19:08] LABS: ANION GAP 13.7 mmol/L (8-16); CALCIUM 7.7 mg/dL (8.5-10.1); CARBON DIOXIDE 24.1 mmol/L (21.0-32.0); CREATININE - SERUM 0.9 mg/dL (0.6-1.3); POTASSIUM - SERUM 3.8 mmol/L (3.5-5.1)
--- NOTE | 2017-08-12 19:34 | NUR ---
PT IN BED. AT BEDSIDE. REQUESTS PAIN MED WHEN IT IS DUE. DENIES FURTHER NEEDS AT THIS TIME.
[2017-08-13] VITALS: BP 139/81
--- NOTE | 2017-08-13 01:47 | NUR ---
PT RESTING IN BED. WILL CONTINUE WITH CARE PLAN. BED IN LOW POSITION. CALL LIGHT WITHIN REACH.
[2017-08-13 04:00] VITALS: BP 126/78
[2017-08-13 05:25] LABS: BASOPHILS 0.2 % (0-2); EOSINOPHILS 2.4 % (0-7); HEMATOCRIT 31.6 % (36.0-48.0); HEMOGLOBIN 10.6 g/dL (12-16); IMMATURE GRANULOCYTES 0.2 % (0-5); LYMPHOCYTES 26.2 % (15-50); MCH 35.1 pg (26.0-34.0); MCHC 33.5 g/dL (31.0-37.0); MCV 104.6 fL (80.0-100.0); MEAN PLATELET VOLUME 9.6 fL (7.4-10.4); MONOCYTES 8.7 % (2-11); NEUTROPHILS 62.3 % (40-80); PLATELET COUNT 120 10x3/uL (130-400); RBC 3.02 10x6/uL (4.00-5.40); RDW 16.9 % (11.5-14.5); WBC 6.2 10x3/uL (4.8-10.8)
[2017-08-13 05:39] LABS: ALBUMIN 1.8 g/dL (3.4-5.0); ANION GAP 7.6 mmol/L (8-16); BILIRUBIN - TOTAL 0.35 mg/dL (0.2-1.3); CALCIUM 7.5 mg/dL (8.5-10.1); CARBON DIOXIDE 28.1 mmol/L (21.0-32.0); CREATININE - SERUM 0.9 mg/dL (0.6-1.3); MAGNESIUM - SERUM 1.6 mg/dL (1.8-2.4); POTASSIUM - SERUM 3.7 mmol/L (3.5-5.1); PROTEIN - SERUM 4.8 g/dL (6.4-8.2)
--- NOTE | 2017-08-13 07:15 | NUR ---
RECIEVED REPORT ON PATIENT, PATIENT HAS A R UPPER ARM IV THAT IS INFUSING WITH MAGNESSIUM AT THIS TIME PER PROTOCOL. PATIENT IS ST ON MONITOR AT A RATE OF 107 AT THIS TIME. PATIENT DENIES ANY NEEDS AT THIS TIME, STATES SHE JUST RECIEVED PAIN MEDICATION AND PAIN IS GETTING BETTER. DENIES ANY OTHER NEEDS AT THIS TIME. BED LOW AND LOCKED, CALL LIGHT IN REACH. CPOC
[2017-08-13 08:00] VITALS: BP 101/54
--- NOTE | 2017-08-13 09:00 | NUR ---
MORNING MEDICATION GIVEN, NO ISSUES. ASSESSMENT DONE. DENIES FURTHER NEEDS. CPOC
[2017-08-13 12:00] VITALS: BP 141/85
--- NOTE | 2017-08-13 12:00 | NUR ---
PATIENT C/O PAIN 7/10 IN ABDOMEN. MORPHINE 2MG GIVEN. IS AT BEDSIDE. PATIENT DENIES ANY OTHER NEEDS. ST ON MONITOR WITH A RATE OF 106. DENIES ANY OTHER NEEDS. CPOC
--- NOTE | 2017-08-13 12:00 | NUR ---
PATIENT EATING LUNCH AT THIS TIME. DENIES ANY NEEDS. CPOC
--- NOTE | 2017-08-13 13:30 | NUR ---
PHENAGREN GIVEN IM FOR NAUSEA. DENIES ANY OTHER NEEDS AT THIS TIME. CPOC
--- NOTE | 2017-08-13 15:17 | NUR ---
PATIENT C/O OF YEAST UNDER BREAST, PATIENT REQUESTING NYSTATIN POWDER. WILL ASK CAROL HEATH. CPOC
[2017-08-13] MEDS ORDERED: TUMS500 MG PO (16:14)
[2017-08-13] MEDS ORDERED: NYSTATIN1 PWD TOPICAL (16:15)
[2017-08-13] MEDS ORDERED: MAG-OX 400 MG400 MG PO (16:15)
[2017-08-13] MEDS ORDERED: PERCOCET 10/3251 TA1 PO (16:16)
--- NOTE | 2017-08-13 16:24 | NUR ---
PERCOCET GIVEN FOR PAIN 05/16. PATIENT DENIES ANY OTHER NEEDS. CPOC
[2017-08-13 16:39] VITALS: BP 123/72
--- NOTE | 2017-08-13 16:51 | NUR ---
PATIENT IV DC WITH CATH TIP INTACT. DC INSTRUCTIONS GIVEN. DENIES ANY NEEDS. PATIENT READY FOR DC
[2017-08-14 10:08] LABS: MITOCHONDRIAL ANTIBODY 6.9 Units (0.0-20.0); SMOOTH MUSCLE ABS (ACTIN) 12 Units (0-19)
--- NOTE | 2017-08-18 12:47 | EC ---
PATIENT:CALEB TELLEZ DATE OF SERVICE: 08/09/17 SEX: F MEDICAL RECORD: [id number] DATE OF : [birth year] LOCATION:D.M2 D.210 AGE OF PATIENT: 67 ADMISSION DATE: 08/09/17 REFERRING PHYSICIAN: INTERPRETING PHYSICIAN: NEELIMA SANTIAGO MD ECHOCARDIOGRAM REPORT ECHO CHARGES 5 ECHO LIMITED CLINICAL DIAGNOSIS: V TACH HX OF CAD/STENT/HTN ECHOCARDIOGRAPHIC MEASUREMENTS (adult normal given) AC root (d.<3.7cm) cm LV Septum d (<1.2 cm> cm Valve Excursion cm LV Septum (systole) cm Left Atria (s.<4.0cm> 4.0 cm LVPW d(<1.2cm) cm RV (d.<2.3cm) 3.8 cm LVPW (sytole) cm LV diastole(<5.6CM) 5.7 cm MV E-F(>70mm/sec) cm LV systole 4.8 cm LVOT Diameter 1.3 cm MV exc.(>10mm) cm Est.ejection fraction (50-75%) % Pericardial Effusion N DOPPLER: LVIT cm/sec A 98.0 cm/sec E 48.0 cm/sec LA cm/sec RVSP 18 mmHg LVOT 96 cm/sec AOP1/2T m/s Asc. Ao 144 cm/sec RVOT cm/sec RA cm/sec PA cm/sec AV Gradient Peak 8.29 mmHg AV Mean 5.50 mmHg AV Area 1.0 cm MV Gradient Peak 4.74 mmHg MV Mean 1.51 mmHg MV Area cm COMMENTS: Railroad Car Painter: Jalyn PUTNAM Metal Cut Off Saw Operator: Syeda Santiago TAPE# PACS DATE OF SERVICE: 08/11/2017 PROCEDURE: Transthoracic echocardiogram. Of note is the poor windows and we were able to visualize the heart on. With that being said, this is more qualitative study than quantitative study. There are no gross abnormalities of function that were demonstrated. The ejection fraction appears to be somewhat hyperdynamic. The right ventricle appears to be moderately dilated. The ejection fraction is 65% to 70%. There is no demonstrated pericardial effusion. It may be reasonable to do an enhanced ECHOCARDIOGRAM REPORT [id number] CALEB TELLEZ echocardiogram for further cardiac delineation. TRANSINT:[id number] Voice Confirmation ID: [id number] DOCUMENT ID: [id number] 08/16/2017 Edited to correct date of service, dmrudi. NEELIMA SANTIAGO MD at 1247 CC: [id number] DICTATION DATE: 08/12/17 0749 FUEL VERIFICATION TECHNICIAN: 08/12/17 0837 DIS IN 08/13/17 [place] [id number] [place] [id number]
--- NOTE | 2017-08-29 15:54 | DS ---
PATIENT:CALEB TELLEZ :50 MEDICAL RECORD: [id number] DISCHARGE SUMMARY ADMISSION DATE: 08/09/17 DISCHARGE DATE: 08/13/17 DATE OF ADMISSION: 08/09/2017 DATE OF DISCHARGE: 08/13/2017 DIAGNOSES: 1. Hyponatremia. 2. Hypokalemia. 3. Oral candidiasis. 4. Left upper extremity pain. 5. Leukocytosis. 6. Nausea and vomiting. 7. Diarrhea. 8. Elevated LFTs. 9. Functional quadriplegia. 10. Sarcoidosis. 11. Lupus. 12. Coronary artery disease. 13. Hypertension. 14. Ventricular tachycardia. CONSULTS: 1. David Jerome MD 2. Rodney Greenfield DO HOSPITAL COURSE: Full H&P is elsewhere in the chart for this 67-year-old patient, who had recently been discharged home with positive CT. Had been on Flagyl and Rocephin. Was readmitted with intractable nausea, vomiting, diarrhea, belly pain. She was placed in the inpatient setting. Had numerous electrolyte abnormalities including hyponatremia, hypomagnesemia, and hypokalemia, all of which were replaced per electrolyte protocol and she was given gentle IV hydration. GI was consulted, p.r.n. Lomotil and Imodium were given for the loose stool. Her repeat clostridiums were negative. She was placed on oral vancomycin. The patient did have elevated liver enzymes and was thought to be due to a fatty liver. She did have an episode of ventricular tachycardia. This was due to the electrolyte abnormalities. Once the electrolytes were corrected, the arrhythmias resolved. Her clinical condition improved. She was thought to be stable to discharge to follow up in the outpatient setting. TRANSINT:[id number] Voice Confirmation ID: [id number] DOCUMENT ID: [id number] Dictated By: MATEO HERNANDEZ I have interviewed/examined the above patient and agree with these documented findings. at 1110 at 1553 CC: [id number] DICTATION DATE: 08/24/17 1606 APPLIQUER ZIGZAG: 08/25/17 0846 DIS IN 08/13/17 [facility] [address] [place] [address]
== END 2017-08-13 18:04 | disposition home or self-care (01) | DRG 640 ==
LOC: D.ER 12:11 → D.M2 17:23 → D.SDCHOLD 17:23 → D.M2 08-13 18:04
PROVIDERS: Family Medicine; Internal Medicine Gastroenterology; Internal Medicine Nephrology; ADMIT Family Medicine
DX: E87.1 Hypo-osmolality and hyponatremia (principal); R53.2 Functional quadriplegia; I47.2 Ventricular tachycardia; N39.0 Urinary tract infection, site not specified; E87.6 Hypokalemia; B37.9 Candidiasis, unspecified; R74.8 Abnormal levels of other serum enzymes; M35.00 Sjogren syndrome, unspecified; M32.9 Systemic lupus erythematosus, unspecified; I10 Essential (primary) hypertension; I25.10 Atherosclerotic heart disease of native coronary artery without angina pectoris; E03.9 Hypothyroidism, unspecified; R12 Heartburn; R19.7 Diarrhea, unspecified; G62.9 Polyneuropathy, unspecified; D86.9 Sarcoidosis, unspecified; M25.512 Pain in left shoulder

== ENCOUNTER → 2017-10-14 14:11 | Outpatient (CLI) | payer MEDICARE, OTHER ==
[~2017-10-14 14:11] MED LIST changes: +MAG-OX 400 MG400 MG PO; +NYSTATIN1 PWD TOPICAL; +PERCOCET 10/3251 TA1 PO; +TUMS500 MG PO; +ZANAFLEX4 MG PO
== END | disposition home or self-care (01) ==
LOC: D.MAMMO 14:11
DX: Z12.31 Encounter for screening mammogram for malignant neoplasm of breast (principal)

== ENCOUNTER 2017-11-16 12:05 | Day surgery (SDC) | payer MEDICARE, OTHER ==
[~2017-11-16] VITALS: Ht 167.6 cm; Wt 100.5 kg
--- NOTE | ~2017-11-16 | OP ---
PATIENT NAME: CALEB TELLEZ MEDICAL RECORD: [id number] :50 LOCATION:[facility] ADMISSION DATE: SURGEON: BENIGNO LOZOYA DO DATE OF OPERATION: 11/16/2017 PROCEDURE: EGD with biopsies. INDICATION FOR PROCEDURE: Iron deficiency anemia, dysphagia, history of melena. SCOPE: [employer] video gastroscope. MEDICATIONS: Propofol 110 mg IV per anesthesia. ESTIMATED BLOOD LOSS: Minimal. COMPLICATIONS: None. FINDINGS: Informed consent was given. The patient was made comfortable with the above medication. After reaching an adequate level of sedation by slow IV push, the patient was placed on her left side. The endoscope was advanced under direct visualization through the mouth to the jejunum. The upper, middle, and lower thirds of the esophagus appeared normal. At the GE junction, there was some mild evidence of LA class A reflux-induced esophagitis. A medium size sliding type hiatal hernia was present and was visible from both the proximal side within the esophagus as well as the retroflexed view within the stomach pouch. There were no associated ulcers or other abnormalities with this hernia. The gastric pouch appeared normal in size and appearance. Some random biopsies were taken to rule out H. pylori and to submit for histology. The gastroenterostomy from the previous gastric bypass was patent and intact. There were no marginal ulcerations present. The jejunal limb was traversed to approximately 30 cm without difficulty. There were no abnormalities associated with the visualized jejunum. The scope was then withdrawn from the patient. The patient tolerated the procedure well and there were no complications. IMPRESSION: 1. LA class A reflux-induced esophagitis. 2. Medium size sliding type hiatal hernia. 3. 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 4. Iron deficiency anemia secondary to bypass of the duodenum for a gastric bypass. The patient is bypassing the segment of bowel that absorbs oral iron and remains iron deficient for this reason. 5. Oropharyngeal dysphagia, possibly related to her autoimmune conditions including Sjogren's disease. PLAN AND RECOMMENDATIONS: 1. Discharge home when recovery parameters are met. 2. Follow up biopsy specimen results. 3. GERD precautions. 4. Continue current diet. 5. Continue current medications. 6. Recommend checking iron studies, including a ferritin level, iron saturation and transfusing IV iron if these indices are low. 7. We will set up a modified barium swallow with speech therapy regarding the oropharyngeal dysphagia. 8. Consider manometry study if the modified barium swallow does not indicate OPERATIVE REPORT [id number] CALEB TELLEZ why the patient is having difficulty swallowing. 9. Follow up in GI clinic and repeat EGD as needed. TRANSINT:[id number] Voice Confirmation ID: [id number] DOCUMENT ID: [id number] BENIGNO LOZOYA DO at 1616 CC: [id number] DICTATION DATE: 11/16/17 1529 PACKAGE REINSPECTOR: 11/16/17 1714 [facility] 11/16/17 [facility] [address] [place] [address]
[~2017-11-16 12:05] MED LIST changes: -ZANAFLEX4 MG PO
[2017-11-16] MEDS ORDERED: HYDROCODONE-APA1 TAB PO (13:44)
[2017-11-16] MEDS ORDERED: OMEPRAZOLE40 MG PO (13:44)
[2017-11-16] MEDS ORDERED: ZANAFLEX4 MG PO (13:45)
[2017-11-16 13:46] VITALS: BP 138/83; Ht 167.6 cm; Wt 100.5 kg
[2017-11-16 14:07] LABS: HEMATOCRIT 39.4 % (36.0-48.0); HEMOGLOBIN 12.9 g/dL (12-16); MCH 33.2 pg (26.0-34.0); MCHC 32.7 g/dL (31.0-37.0); MCV 101.3 fL (80.0-100.0); MEAN PLATELET VOLUME 9.9 fL (7.4-10.4); RBC 3.89 10x6/uL (4.00-5.40); RDW 13.9 % (11.5-14.5); WBC 6.2 10x3/uL (4.8-10.8)
[2017-11-16 16:02] LABS: % SATURATION 11 % (15-55); IRON 36 ug/dl (35-150); TOTAL IRON BIND CAPACITY 320 ug/dl (260-445); UNSAT IRON BIND CAPACITY 284 ug/dl (150-375)
== END 2017-11-16 16:30 | disposition home or self-care (01) ==
LOC: D.OPS 12:05
PROVIDERS: Anesthesiology; Internal Medicine Gastroenterology
DX: D50.9 Iron deficiency anemia, unspecified (principal); R13.12 Dysphagia, oropharyngeal phase; K21.0 Gastro-esophageal reflux disease with esophagitis; K44.9 Diaphragmatic hernia without obstruction or gangrene; I25.10 Atherosclerotic heart disease of native coronary artery without angina pectoris; I10 Essential (primary) hypertension; E03.9 Hypothyroidism, unspecified; Z01.812 Encounter for preprocedural laboratory examination

== ENCOUNTER 2018-01-02 16:15 | Inpatient (IN) | payer MEDICARE, OTHER ==
--- NOTE | ~2018-01-02 | EC ---
PATIENT:CALEB TELLEZ DATE OF SERVICE: 01/02/18 SEX: F MEDICAL RECORD: [id number] DATE OF : 50 LOCATION:D.MS [facility] AGE OF PATIENT: 67 ADMISSION DATE: 01/03/18 REFERRING PHYSICIAN: INTERPRETING PHYSICIAN: MYRA VILLELA MD ECHOCARDIOGRAM REPORT ECHO CHARGES 4 ECHO COMPLETE CLINICAL DIAGNOSIS: ASSESS LV FUN,HYPOTENSION,SYNCOPE ECHOCARDIOGRAPHIC MEASUREMENTS (adult normal given) AC root (d.<3.7cm) 3.7 cm LV Septum d (<1.2 cm> 1.6 cm Valve Excursion 1.8 cm LV Septum (systole) 1.7 cm Left Atria (s.<4.0cm> 4.1 cm LVPW d(<1.2cm) 1.7 cm RV (d.<2.3cm) 4.1 cm LVPW (sytole) 1.8 cm LV diastole(<5.6CM) 4.6 cm MV E-F(>70mm/sec) cm LV systole 3.5 cm LVOT Diameter 2.1 cm MV exc.(>10mm) 1.4 cm Est.ejection fraction (50-75%) % Pericardial Effusion N DOPPLER: LVIT cm/sec A 110 cm/sec E 87.0 cm/sec LA cm/sec RVSP 39 mmHg LVOT 126 cm/sec AOP1/2T m/s Asc. Ao 203 cm/sec RVOT 89 cm/sec RA cm/sec PA 146 cm/sec AV Gradient Peak 16.56mmHg AV Mean 7.97 mmHg AV Area 2.3 cm MV Gradient Peak 6.45 mmHg MV Mean 2.65 mmHg MV Area cm COMMENTS: Instructional Technology Instructor: Jalyn PUTNAM Accounting Officer: 2 Dr. Zavala TAPE# PACS DATE OF SERVICE: 01/03/2018 Echocardiogram FINDINGS: 1. Left ventricular chamber size is within normal limits. Left ventricular systolic function is normal. Overall ejection fraction estimated at 60%. 2. The left atrium is mildly dilated at 4.1 cm. Right atrium and right ventricular chamber sizes are as well mildly dilated. 3. Valvular structures have normal structure and motion. ECHOCARDIOGRAM REPORT [id number] CALEB TELLEZ 4. Doppler interrogation reveals only mild tricuspid regurgitation, no other valvular insufficiency or stenosis. Pulmonary systolic pressure is normal estimated at 39 mmHg. 5. No evidence of pericardial effusion or left ventricular thrombus. TRANSINT:[id number] Voice Confirmation ID: [id number] DOCUMENT ID: [id number] MYRA VILLELA MD at 1153 CC: [id number] DICTATION DATE: 01/03/18 1344 RICE MILLING SUPERVISOR: 01/03/18 1427 DIS IN 01/05/18 [place] [id number] [place] [id number]
[~2018-01-02 16:15] MED LIST changes: +ZANAFLEX4 MG PO
[2018-01-02 17:11] LABS: BASOPHILS 0.2 % (0-2); EOSINOPHILS 1.8 % (0-7); HEMATOCRIT 33.6 % (36.0-48.0); HEMOGLOBIN 10.7 g/dL (12-16); IMMATURE GRANULOCYTES 0.1 % (0-5); LYMPHOCYTES 26.1 % (15-50); MCH 32.3 pg (26.0-34.0); MCHC 31.8 g/dL (31.0-37.0); MCV 101.5 fL (80.0-100.0); MEAN PLATELET VOLUME 9.3 fL (7.4-10.4); MONOCYTES 12.6 % (2-11); NEUTROPHILS 59.2 % (40-80); RBC 3.31 10x6/uL (4.00-5.40); RDW 15.4 % (11.5-14.5); WBC 8.2 10x3/uL (4.8-10.8)
[2018-01-02 17:17] LABS: PLATELET COUNT 149 10x3/uL (130-400)
[2018-01-02 17:29] LABS: ALBUMIN 2.4 g/dL (3.4-5.0); ALKALINE PHOSPHATASE 121 U/L (46-116); ALT (SGPT) 26 U/L (10-68); CALC OSMOLALITY 280 mosm/kg (275-300); CALCIUM 7.4 mg/dL (8.5-10.1); CARBON DIOXIDE 23.2 mmol/L (21.0-32.0); CHLORIDE - SERUM 106 mmol/L (98-107); CREATININE - SERUM 1.2 mg/dL (0.6-1.3); GLUCOSE 129 mg/dL (74-106); POTASSIUM - SERUM 4.3 mmol/L (3.5-5.1); PROTEIN - SERUM 5.5 g/dL (6.4-8.2); SODIUM 139 mmol/L (136-145); UREA NITROGEN 15 mg/dL (7-18); eGFR NON AFRICAN AMERICAN 47 mL/min (90-120)
[2018-01-02 17:39] LABS: CKMB 1.1 U/L (0.0-3.6); CREATINE KINASE 25 UL (21-215); TROPONIN-I < 0.017 ng/mL (0.000-0.060)
[2018-01-02 17:53] LABS: APPEARANCE HAZY (CLEAR); BILIRUBIN NEGATIVE (NEGATIVE); COLOR YELLOW (YELLOW); GLUCOSE NEGATIVE (NEGATIVE); KETONE NEGATIVE (NEGATIVE); NITRITE NEGATIVE (NEGATIVE); PROTEIN TRACE mg/dL (NEGATIVE); SPECIFIC GRAVITY 1.015 (1.005-1.020); UROBILINOGEN NORMAL (NORMAL)
[2018-01-02 17:54] LABS: BACTERIA MANY /hpf (NONE SEEN); WHITE CELLS - URINE >50 /hpf (0-5)
[2018-01-02 18:52] LABS: % SATURATION 29 % (15-55); IRON 77 ug/dl (35-150); TOTAL IRON BIND CAPACITY 263 ug/dl (260-445); UNSAT IRON BIND CAPACITY 186 ug/dl (150-375)
[2018-01-02 19:03] LABS: MAGNESIUM - SERUM 1.3 mg/dL (1.8-2.4); PHOSPHOROUS 4.8 mg/dL (2.5-4.9)
[2018-01-02 23:34] VITALS: BMI 33.9
[2018-01-02] MEDS ORDERED: CLONAZEPAM2 MG/TAB PO (23:59)
[2018-01-03] MEDS ORDERED: ARICEPT10 MG PO (00:01)
[2018-01-03] MEDS ORDERED: COZAAR25 MG PO (00:02)
[2018-01-03 01:38] VITALS: BP 105/52
[2018-01-03 05:50] LABS: BASOPHILS 0.2 % (0-2); EOSINOPHILS 2.6 % (0-7); HEMATOCRIT 32.6 % (36.0-48.0); HEMOGLOBIN 10.4 g/dL (12-16); IMMATURE GRANULOCYTES 0.2 % (0-5); LYMPHOCYTES 35.9 % (15-50); MCH 31.6 pg (26.0-34.0); MCHC 31.9 g/dL (31.0-37.0); MEAN PLATELET VOLUME 9.4 fL (7.4-10.4); MONOCYTES 12.7 % (2-11); NEUTROPHILS 48.4 % (40-80); PLATELET COUNT 139 10x3/uL (130-400); RBC 3.29 10x6/uL (4.00-5.40); RDW 14.8 % (11.5-14.5)
[2018-01-03 05:54] LABS: MCV 99.1 fL (80.0-100.0); WBC 4.2 10x3/uL (4.8-10.8)
[2018-01-03 05:55] VITALS: BP 93/50
[2018-01-03 06:27] LABS: ALBUMIN 2.1 g/dL (3.4-5.0); ANION GAP 14.6 mmol/L (8-16); BILIRUBIN - TOTAL 0.6 mg/dL (0.2-1.3); CALCIUM 7.3 mg/dL (8.5-10.1); CARBON DIOXIDE 23.3 mmol/L (21.0-32.0); CREATININE - SERUM 1.3 mg/dL (0.6-1.3); POTASSIUM - SERUM 3.9 mmol/L (3.5-5.1); PROTEIN - SERUM 5.3 g/dL (6.4-8.2)
[2018-01-03 08:13] VITALS: BP 126/68
[2018-01-03 11:03] VITALS: BMI 33.9
[2018-01-03 12:53] VITALS: BP 139/62
[2018-01-03 16:18] VITALS: BP 134/76
[2018-01-03 21:30] VITALS: BP 139/69
[2018-01-04 01:10] VITALS: BP 110/58
[2018-01-04 04:36] VITALS: BP 127/64
[2018-01-04 08:00] VITALS: BP 151/68
[2018-01-04 09:17] LABS: FOLATE (FOLIC ACID) - SERUM 15.5 ng/mL (>3.0)
[2018-01-04 10:21] LABS: HEMATOCRIT 33.9 % (36.0-48.0); HEMOGLOBIN 11.3 g/dL (12-16); LYMPHOCYTES 37.7 % (15-50); MCH 32.5 pg (26.0-34.0); MCHC 33.3 g/dL (31.0-37.0); MCV 97.4 fL (80.0-100.0); MEAN PLATELET VOLUME 9.1 fL (7.4-10.4); NEUTROPHILS 50.8 % (40-80); PLATELET COUNT 146 10x3/uL (130-400); RBC 3.48 10x6/uL (4.00-5.40); RDW 14.8 % (11.5-14.5); WBC 4.7 10x3/uL (4.8-10.8)
[2018-01-04 10:35] LABS: ALBUMIN 2.5 g/dL (3.4-5.0); ANION GAP 12.7 mmol/L (8-16); BILIRUBIN - TOTAL 0.29 mg/dL (0.2-1.3); CALCIUM 8.2 mg/dL (8.5-10.1); CARBON DIOXIDE 22.9 mmol/L (21.0-32.0); CREATININE - SERUM 1.1 mg/dL (0.6-1.3); POTASSIUM - SERUM 3.6 mmol/L (3.5-5.1)
[2018-01-04 12:09] VITALS: BP 127/69
[2018-01-04 16:50] VITALS: BP 137/70
[2018-01-04 22:53] VITALS: BP 150/67
[2018-01-05 04:00] VITALS: BP 155/75
[2018-01-05 04:42] LABS: BASOPHILS 0.3 % (0-2); EOSINOPHILS 4.2 % (0-7); HEMATOCRIT 33.2 % (36.0-48.0); HEMOGLOBIN 10.8 g/dL (12-16); IMMATURE GRANULOCYTES 0.3 % (0-5); LYMPHOCYTES 39.6 % (15-50); MCHC 32.5 g/dL (31.0-37.0); MCV 98.2 fL (80.0-100.0); MEAN PLATELET VOLUME 9.1 fL (7.4-10.4); MONOCYTES 9.4 % (2-11); NEUTROPHILS 46.2 % (40-80); PLATELET COUNT 122 10x3/uL (130-400); RBC 3.38 10x6/uL (4.00-5.40); RDW 15.3 % (11.5-14.5); WBC 3.8 10x3/uL (4.8-10.8)
[2018-01-05 05:13] LABS: ALBUMIN 2.3 g/dL (3.4-5.0); ALKALINE PHOSPHATASE 91 U/L (46-116); ALT (SGPT) 20 U/L (10-68); BILIRUBIN - TOTAL 0.35 mg/dL (0.2-1.3); CALCIUM 8.1 mg/dL (8.5-10.1); CARBON DIOXIDE 24.6 mmol/L (21.0-32.0); CHLORIDE - SERUM 109 mmol/L (98-107); GLUCOSE 80 mg/dL (74-106); POTASSIUM - SERUM 3.6 mmol/L (3.5-5.1); PROTEIN - SERUM 5.7 g/dL (6.4-8.2); SODIUM 141 mmol/L (136-145); eGFR NON AFRICAN AMERICAN 76 mL/min (90-120)
[2018-01-05 05:19] LABS: CALC OSMOLALITY 279 mosm/kg (275-300); CREATININE - SERUM 0.8 mg/dL (0.6-1.3); UREA NITROGEN 13 mg/dL (7-18)
[2018-01-05 08:08] VITALS: BP 108/63
[2018-01-05 11:43] VITALS: BP 132/65
[2018-01-05] MEDS ORDERED: BACTRIM 400-801 TAB PO (12:32)
[2018-01-05] MEDS ORDERED: HYDROCODONE-APA1 TAB PO (12:32)
== END 2018-01-05 16:00 | disposition home or self-care (01) | DRG 872 ==
LOC: D.ER 16:15 → D.MS 20:15 → D.SDCHOLD 20:15 → OBSVTIME 20:21 → D.MS 21:56
PROVIDERS: Family Medicine; Internal Medicine Nephrology
DX: A41.50 Gram-negative sepsis, unspecified (principal); N39.0 Urinary tract infection, site not specified; N17.9 Acute kidney failure, unspecified; E11.22 Type 2 diabetes mellitus with diabetic chronic kidney disease; I12.9 Hypertensive chronic kidney disease with stage 1 through stage 4 chronic kidney disease, or unspecified chronic kidney disease; N18.9 Chronic kidney disease, unspecified; M32.9 Systemic lupus erythematosus, unspecified; D86.9 Sarcoidosis, unspecified; E03.9 Hypothyroidism, unspecified; E86.0 Dehydration; E66.01 Morbid (severe) obesity due to excess calories; Z68.33 Body mass index [BMI] 33.0-33.9, adult; D53.9 Nutritional anemia, unspecified; R79.89 Other specified abnormal findings of blood chemistry; M35.00 Sjogren syndrome, unspecified; M25.562 Pain in left knee; B96.20 Unspecified Escherichia coli [E. coli] as the cause of diseases classified elsewhere

== ENCOUNTER 2018-03-05 13:23 | Emergency (ER) | payer MEDICARE, OTHER ==
[~2018-03-05 13:23] MED LIST changes: +ARICEPT10 MG PO; +BACTRIM 400-801 TAB PO; +COZAAR25 MG PO
[2018-03-05 14:25] LABS: BASOPHILS 0.1 % (0-2); EOSINOPHILS 0.1 % (0-7); HEMATOCRIT 41.1 % (36.0-48.0); HEMOGLOBIN 14.1 g/dL (12-16); IMMATURE GRANULOCYTES 0.2 % (0-5); LYMPHOCYTES 13.6 % (15-50); MCH 33.3 pg (26.0-34.0); MCHC 34.3 g/dL (31.0-37.0); MCV 96.9 fL (80.0-100.0); MEAN PLATELET VOLUME 8.8 fL (7.4-10.4); MONOCYTES 3.7 % (2-11); NEUTROPHILS 82.3 % (40-80); RBC 4.24 10x6/uL (4.00-5.40); RDW 14.8 % (11.5-14.5); WBC 12.9 10x3/uL (4.8-10.8)
[2018-03-05 14:38] LABS: PLATELET COUNT 317 10x3/uL (130-400)
[2018-03-05 14:49] LABS: ALBUMIN 2.8 g/dL (3.4-5.0); ANION GAP 22.1 mmol/L (8-16); BILIRUBIN - TOTAL 0.25 mg/dL (0.2-1.3); CALCIUM 8.1 mg/dL (8.5-10.1); CARBON DIOXIDE 17.1 mmol/L (21.0-32.0); CREATININE - SERUM 0.9 mg/dL (0.6-1.3); POTASSIUM - SERUM 4.2 mmol/L (3.5-5.1); PROTEIN - SERUM 6.6 g/dL (6.4-8.2)
== END 2018-03-05 18:45 | disposition home or self-care (01) ==
LOC: D.ER 13:23
PROVIDERS: Emergency Medicine
DX: M54.5 Low back pain (principal); W06.XXXA Fall from bed, initial encounter; Y93.89 Activity, other specified; Y92.013 Bedroom of single-family (private) house as the place of occurrence of the external cause; R00.0 Tachycardia, unspecified

== ENCOUNTER 2018-05-05 16:00 | Emergency (ER) | payer MEDICARE, OTHER ==
[~2018-05-05] VITALS: Ht 167.6 cm; Wt 89.1 kg
[2018-05-05 16:47] VITALS: Ht 167.6 cm; Wt 89.1 kg
[2018-05-05] MEDS ORDERED: BONIVA3 MG/3 ML/ IV (16:52)
[2018-05-05] MEDS ORDERED: NORCO 7.5/325 T1 TA1 PO (16:53)
[2018-05-05] MEDS ORDERED: HYDROCODONE-APA1 TAB PO (18:52)
[2018-05-05] MEDS ORDERED: PREDNISONE20 MG PO (18:52)
[2018-05-06 02:55] VITALS: BP 148/93
[2018-05-11] MEDS ORDERED: FUROSEMIDE20 MG PO (10:05)
[2018-05-11] MEDS ORDERED: DUTOPROL 100-11 EACH PO (10:06)
== END 2018-05-05 19:20 | disposition home or self-care (01) ==
LOC: D.ER 16:00
DX: S52.502A Unspecified fracture of the lower end of left radius, initial encounter for closed fracture (principal); W19.XXXA Unspecified fall, initial encounter; Y93.89 Activity, other specified; Y92.019 Unspecified place in single-family (private) house as the place of occurrence of the external cause

== ENCOUNTER 2018-05-12 07:15 | Day surgery (SDC) | payer MEDICARE, OTHER ==
[2018-05-11 11:04] LABS: HEMOGLOBIN 12.3 g/dL (12-16); MCH 32.5 pg (26.0-34.0); MCHC 32.4 g/dL (31.0-37.0); MCV 100.5 fL (80.0-100.0); MEAN PLATELET VOLUME 8.7 fL (7.4-10.4); RBC 3.78 10x6/uL (4.00-5.40); RDW 13.9 % (11.5-14.5); WBC 6.4 10x3/uL (4.8-10.8)
[~2018-05-12] VITALS: Ht 170.2 cm; Wt 90.7 kg
--- NOTE | ~2018-05-12 | OP ---
PATIENT NAME: CALEB ESQUIVEL MEDICAL RECORD: [id number] :50 LOCATION:[facility] ADMISSION DATE: SURGEON: DAVID CORLEY DO DATE OF OPERATION: 05/12/2018 PROCEDURE PERFORMED: Left distal radius open reduction and internal fixation. PREOPERATIVE DIAGNOSIS: Left distal radius fracture closed and displaced. POSTOPERATIVE DIAGNOSIS: Left distal radius fracture closed and displaced. OPERATIVE INDICATIONS: Ms. Esquivel is a right-hand dominant female who fell a week ago on her outstretched hand. She sustained a distal radius fracture, seen in the ER, splinted and sent to my clinic for followup. She was seen in the clinic on Tuesday and scheduled for surgery today. She was aware of the risks and benefits of the procedure as well as nonoperative treatment and her increased risk for infection due to her open wound in her abdomen she has had for many many years. She was okay to proceed with the procedure and consented to the procedure after all of her questions were answered. SURGEON: David Corley DO DESCRIPTION OF PROCEDURE: The patient was taken to the operative suite, laid in supine position, given general anesthetic. The left lower extremity was prepped and draped in sterile fashion with a tourniquet above the elbow. After this was prepped and draped and she had been given Ancef preoperatively, a timeout was performed and everyone was in agreeance with the correct side, site and patient and the left upper extremity was then exsanguinated with an Esmarch and tourniquet was inflated to 250 mmHg and was up for 35 minutes during the procedure. Esmarch was then removed and the incision was marked out over the flexor carpi radialis tendon and careful dissection was made down to the FCR and then FCR was moved ulnarly. The posterior portion of the tendon sheath was then incised and the FPL was moved out of the way and the pronator quadratus was encountered. Pronator quadratus was then removed off the radial side of the radius and the fracture site was encountered. Reduction was made and held in place with a single K-wire and plate was put into place. With shaft screws put in proximally and then distally locking screws in the distal radius and then a locking screw put in the most proximal hole in the plate and then the 2 cortical screws were then put in, were removed and replaced with locking screws due to poor bone quality. The Acumed distal radius plate was used. Once this was done, the tourniquet was let down and the bleeders were coagulated. The incision was then closed with a 3-0 Vicryl in an inverted interrupted fashion and 4-0 Monocryl was ran on the skin and then Prineo glue was then put on the skin. Adaptic, 4 x 4's, and Webril were then placed on the left upper extremity and a splint was placed and overwrapped with an Cesar wrap. Blood loss was minimal. Tourniquet was let down at 35 minutes TRANSINT:[id number] Voice Confirmation ID: [id number] DOCUMENT ID: [id number] OPERATIVE REPORT [id number] CALEB ESQUIVEL MICHAEL D, DO at 1242 CC: [id number] DICTATION DATE: 05/12/18 1118 EXCEPTIONAL NEEDS TEACHER: 05/12/18 1147 [address] [place] [id number] [place] [address]
[~2018-05-12 07:15] MED LIST changes: +BONIVA3 MG/3 ML/ IV; +DUTOPROL 100-11 EACH PO; +FUROSEMIDE20 MG PO; +NORCO 7.5/325 T1 TA1 PO; +PREDNISONE20 MG PO
[2018-05-12 07:50] VITALS: Ht 170.2 cm; Wt 90.7 kg
[2018-05-12] MEDS ORDERED: DURICEF500 MG PO (11:13)
[2018-05-12] MEDS ORDERED: PERCOCET 5-3251 TAB PO (11:13)
== END 2018-05-12 15:30 | disposition home or self-care (01) ==
LOC: D.OPS 07:15 → D.PAN 09:15 → D.OPS 15:30
PROVIDERS: Anesthesiology
DX: S52.502A Unspecified fracture of the lower end of left radius, initial encounter for closed fracture (principal); W19.XXXA Unspecified fall, initial encounter; Z01.812 Encounter for preprocedural laboratory examination

== ENCOUNTER → 2018-10-17 08:07 | Outpatient (CLI) | payer MEDICARE, OTHER ==
[2018-05-12 07:50] VITALS: BMI 31.4
[~2018-10-17 08:07] MED LIST changes: +DURICEF500 MG PO; +PERCOCET 5-3251 TAB PO
== END | disposition home or self-care (01) ==
LOC: D.CT 10-16 14:00
DX: S52.512 Displaced fracture of left radial styloid process (principal); X58.XXXA Exposure to other specified factors, initial encounter

== ENCOUNTER → 2018-10-26 15:11 | Outpatient (CLI) | payer MEDICARE, OTHER ==
[2018-05-12 07:50] VITALS: BMI 31.4
[2018-10-26 17:48] LABS: BASOPHILS 0.5 % (0-2); EOSINOPHILS 3.3 % (0-7); HEMATOCRIT 35.9 % (36.0-48.0); HEMOGLOBIN 11.5 g/dL (12-16); IMMATURE GRANULOCYTES 0.2 % (0-5); LYMPHOCYTES 32.2 % (15-50); MCH 32.1 pg (26.0-34.0); MCV 100.3 fL (80.0-100.0); MEAN PLATELET VOLUME 9.1 fL (7.4-10.4); MONOCYTES 11.6 % (2-11); NEUTROPHILS 52.2 % (40-80); RBC 3.58 10x6/uL (4.00-5.40); RDW 14.8 % (11.5-14.5); WBC 5.5 10x3/uL (4.8-10.8)
[2018-10-26 18:02] LABS: PLATELET COUNT 271 10x3/uL (130-400)
[2018-10-26 18:48] LABS: ERYTHROCYTE SEDIMENTATION RATE 25 mm/hr (0-30)
== END | disposition home or self-care (01) ==
LOC: D.LABREF 15:11
PROVIDERS: Orthopaedic Surgery
DX: S62.102B Fracture of unspecified carpal bone, left wrist, initial encounter for open fracture (principal); X58.XXXA Exposure to other specified factors, initial encounter

== ENCOUNTER → 2019-01-22 16:26 | Outpatient (CLI) | payer MEDICARE, OTHER ==
[2018-05-12 07:50] VITALS: BMI 31.4
== END | disposition home or self-care (01) ==
LOC: D.LABREF 16:26
PROVIDERS: ATTEND Orthopaedic Surgery
DX: M17.12 Unilateral primary osteoarthritis, left knee (principal); Z11.8 Encounter for screening for other infectious and parasitic diseases

== ENCOUNTER 2019-01-25 15:23 | Inpatient (IN) | payer MEDICARE, OTHER ==
[~2019-01-25] VITALS: Ht 170.2 cm; Wt 90.5 kg
[2019-03-07] MEDS ORDERED: VITAMIN D250000 UNIT PO (11:15)
[2019-03-07] MEDS ORDERED: BACLOFEN20 M1 PO (11:16)
[2019-03-07] MEDS ORDERED: NEURONTIN 300300 MG PO (11:16)
[2019-03-07] MEDS ORDERED: LOSARTAN POTASSIUM PO (11:16)
[2019-03-07] MEDS ORDERED: HYDROCODON-ACE1 EA10 PO (11:17)
[2019-03-07] MEDS ORDERED: VITAMIN D3400 UNI1 PO (11:17)
[2019-03-07] MEDS ORDERED: HYSINGLA ER20 MG PO (11:17)
[2019-03-07] MEDS ORDERED: VITAMIN B-122500 MCG PO (11:18)
[2019-03-07] MEDS ORDERED: BAYER CHEWABLE81 MG PO (11:18)
[2019-03-07 11:50] LABS: ANION GAP 10.1 mmol/L (8-16); CARBON DIOXIDE 29.5 mmol/L (21.0-32.0); CREATININE - SERUM 0.9 mg/dL (0.6-1.3); POTASSIUM - SERUM 4.6 mmol/L (3.5-5.1)
[2019-03-07 11:52] LABS: APTT 31.6 SECONDS (22.8-39.4); INR 0.97 (0.85-1.17); PROTIME 12.4 SECONDS (11.6-15.0)
[2019-03-07 11:57] LABS: BASOPHILS 0.2 % (0-2); EOSINOPHILS 2.9 % (0-7); HEMATOCRIT 40.1 % (36.0-48.0); HEMOGLOBIN 13.2 g/dL (12-16); IMMATURE GRANULOCYTES 0.2 % (0-5); LYMPHOCYTES 30.5 % (15-50); MCH 30.6 pg (26.0-34.0); MCHC 32.9 g/dL (31.0-37.0); MCV 92.8 fL (80.0-100.0); MEAN PLATELET VOLUME 9.4 fL (7.4-10.4); MONOCYTES 9.1 % (2-11); NEUTROPHILS 57.1 % (40-80); PLATELET COUNT 259 10x3/uL (130-400); RBC 4.32 10x6/uL (4.00-5.40); RDW 14.4 % (11.5-14.5); WBC 8.6 10x3/uL (4.8-10.8)
[2019-03-07 12:22] LABS: APPEARANCE HAZY (CLEAR); BACTERIA MANY /hpf (NONE SEEN); BILIRUBIN NEGATIVE (NEGATIVE); COLOR YELLOW (YELLOW); EPITHELIAL CELLS RARE /hpf (0-5); GLUCOSE NEGATIVE (NEGATIVE); KETONE NEGATIVE (NEGATIVE); MUCUS <1+ /lpf (NONE SEEN); NITRITE NEGATIVE (NEGATIVE); PROTEIN NEGATIVE (NEGATIVE); SPECIFIC GRAVITY 1.015 (1.005-1.020); UROBILINOGEN NORMAL (NORMAL)
[2019-03-13] VITALS (7 sets, daily range): BP systolic 94–159; BP diastolic 48–69; Ht 170.2 cm; Wt 90.5 kg
--- NOTE | 2019-03-13 10:19 | NUR ---
RE-BLOCK COMPLETE @1016
--- NOTE | 2019-03-13 10:50 | NUR ---
ASSESSMENT PER FLOW SHEET. PT IS WITHOUT DISTRESS.VSS SEE GRAPHICS. DRESSING LEFT KNEE CLEAN ,DRY AND INTACT. DRESSING TO ABD IN PLACE, STATES CHRONIC WOUND FOR 10 YEARS FROM HERNIA SURGERY. ORIENTATION TO ROOM.CALL LIGHT IN REACH. FALL PREVENTION INITIATED
--- NOTE | 2019-03-13 12:27 | OP ---
PATIENT NAME: CALEB ESQUIVEL MEDICAL RECORD: [id number] :50 LOCATION: D.2223 ADMISSION DATE:03/13/19 SURGEON: DAVID CORLEY DO DATE OF OPERATION: 03/13/2019 PROCEDURE PERFORMED: Left total knee arthroplasty. PREOPERATIVE DIAGNOSIS: Left knee osteoarthritis. POSTOPERATIVE DIAGNOSIS: Left knee osteoarthritis. INDICATIONS: Ms. Esquivel is a 68-year-old female, who has had left knee pain for quite some time. She has tried bracing, physical therapy, and injections. This has been going on for many many years. She really needed a total knee years ago, but she has not been able to due to the fact she has an open abdominal wound that has been there for years. She dresses it everyday with Dakin's and does not have infection in it. I informed her that there is a very high risk to do a total knee, but due to the fact it had been stable for years, we would do a total knee, but she is still very high risk for infection for a total knee. She is willing to take on that risk as well as risk of blood clots, bleeding, damage to nerves and vessels, need for further surgery, even , and she signed the consent. SURGEON: David Corley DO. I was assisted by Segundo Arita, advanced nurse practitioner, to assist with closing and holding retractors. The patient was given a block by anesthesia preoperatively, taken to the operating suite, given 2 grams of Ancef and 80 mg of gentamicin preoperatively. The left lower extremity was then prepped and draped in sterile fashion. Time-out was performed. Everyone was in agreement with correct side, site, patient and procedure. The incision was then marked out and wrapped in Ioban. SHE DOES HAVE THE IODINE CONTRAST ALLERGY, BUT NOT ON THE SKIN. So, we did use an Ioban. The incision then began over the marked incision with a #10 blade scalpel down. Careful dissection made down to the capsule. All bleeders were coagulated with the Aquamantys throughout the procedure. The medial parapatellar approach was then used to enter the capsule. Bleeding was coagulated. Part of the fat pad was removed at that time as well. The patella was then milled down to fit a prosthesis, measured to be a 31. The knee was then flexed up and a drill was used to enter the femur noting very soft bone. A distal femur cut was then made off the guide. The bone was extremely soft, primarily medially and laterally. The distal femur was then cut and then the tibia was cut, did not have enough room in between them, so more distal tibia was removed, total of 4 mm. The extension block fit well after removing the menisci and then we measured the femur to be 65. A 4-in-1 cutting block was put on and it was cut. Noting very soft bone medially, at this time switched to do a 360 with a stim femur. We are going to PS anyways due to her deformity, which was very severe. The reaming then began up to a 22. We then decided put a 21 stem in, 120 mm. This was all trialed and posterior notch was cut for the posterior stabilized. The rotation was marked then on the tibia. This fit well and rotation was marked, and we drilled the patella for the prosthesis. The femur was then removed and then the tibia was exposed and 71 tibial tray was seen to be the best fit. This was then pinned down and drilled and malleted for a long 80 stem on the cruciate tibia. The tibia was then irrigated and the prosthesis were put together. She was given a gram of TXA prior to the incision. Once the tibia was punched, the parts were assembled and the cement was mixed. First the cement was placed down the tibia and on the prosthesis. This was impacted in place. Excess cement was OPERATIVE REPORT [id number] SHARMIN ESQUIVELPema GUTIERREZE removed. The same process for the femur and then the 10 poly was put in between and brought to extension and then the 3 peg 31 thin patella was put in and a squeezer was put on it while the cement dried. The knee was irrigated. Any excess cement was removed. Once it was removed and the cement had dried, we trialed a 12. The 12 fit very well and tight. Due to her severe deformity, we decided to do a very constrained poly. We used a 12 PS constrained bearing. This fit very nicely and then the tibial locking was put in for the poly. The knee was cycled and very stable to varus and valgus and cycled very well. The knee was then thoroughly irrigated. Surgicel powder and antibiotics were then placed into the gutters and the capsule was closed with #2 Ethibond in [id number] fashion. This was irrigated and then the skin was closed with 2-0 Vicryl in an interrupted fashion. ZipLine placed on the knee. Adaptic, 4 x 4, ABD, Webril, Cesar wrap, CHANI hose stocking placed up to the knee. The patient was awakened and taken to recovery in stable condition. Blood loss approximately 250 mL. Complications none. TRANSINT:[id number] Voice Confirmation ID: [id number] DOCUMENT ID: [id number] DAVID CORLEY DO at 1227 CC: [id number] DICTATION DATE: 03/13/19 0949 BARREL STRAIGHTENER: 03/13/19 1225 ADM IN [place] [id number] [place] [address]
--- NOTE | 2019-03-13 19:22 | NUR ---
REMAINS WITHOUT CHANGE.CPM IN PLACE.CONT PLAN OF CARE
--- NOTE | 2019-03-13 20:00 | NUR ---
PT SITTING UP IN BED, NO SIGNS OF DISTRESS. ALERT AND ORIENTED. O2 2L/NC. IV RIGHT AC INFUSING 1/2NS @ 75. LEFT KNEE DRESSING CDI, CPM IN PLACE. STATES PAIN 04/16. GAVE OXY ORDERED. DRESSING TO ABD TO CDI. DENIES NEEDS AT THIS TIME. CL IN REACH, WILL CONT TO MONITOR
--- NOTE | 2019-03-13 21:30 | NUR ---
REMOVED CPM. ASSISTED PT ON AND OFF BEDPAN TO VOID. COLLECTED URINE SAMPLE. PLACED ICE ON LEFT KNEE. WITHOUT NEEDS AT THIS TIME. CL IN REACH, WILL CONT TO MONITOR
[2019-03-13 22:38] LABS: APPEARANCE CLEAR (CLEAR); BILIRUBIN NEGATIVE (NEGATIVE); COLOR YELLOW (YELLOW); GLUCOSE NEGATIVE (NEGATIVE); KETONE NEGATIVE (NEGATIVE); NITRITE NEGATIVE (NEGATIVE); PROTEIN NEGATIVE (NEGATIVE); SPECIFIC GRAVITY 1.015 (1.005-1.020); UROBILINOGEN NORMAL (NORMAL)
[2019-03-14 01:18] VITALS: BP 94/41
[2019-03-14 06:11] VITALS: BP 104/41
[2019-03-14 06:39] LABS: BASOPHILS 0 % (0-2); EOSINOPHILS 0 % (0-7); HEMATOCRIT 29.8 % (36.0-48.0); HEMOGLOBIN 9.8 g/dL (12-16); IMMATURE GRANULOCYTES 0.2 % (0-5); LYMPHOCYTES 6.6 % (15-50); MCH 30.2 pg (26.0-34.0); MCHC 32.9 g/dL (31.0-37.0); MCV 91.7 fL (80.0-100.0); MEAN PLATELET VOLUME 9.5 fL (7.4-10.4); MONOCYTES 10.5 % (2-11); NEUTROPHILS 82.7 % (40-80); RBC 3.25 10x6/uL (4.00-5.40); RDW 14.4 % (11.5-14.5); WBC 9.7 10x3/uL (4.8-10.8)
[2019-03-14 06:52] LABS: CALC OSMOLALITY 278 mosm/kg (275-300); CALCIUM 8.1 mg/dL (8.5-10.1); CARBON DIOXIDE 24.1 mmol/L (21.0-32.0); CHLORIDE - SERUM 105 mmol/L (98-107); CREATININE - SERUM 0.8 mg/dL (0.6-1.3); GLUCOSE 137 mg/dL (74-106); POTASSIUM - SERUM 4.5 mmol/L (3.5-5.1); SODIUM 138 mmol/L (136-145); UREA NITROGEN 14 mg/dL (7-18); eGFR NON AFRICAN AMERICAN 75 mL/min (90-120)
[2019-03-14 07:09] LABS: PLATELET COUNT 174 10x3/uL (130-400)
--- NOTE | 2019-03-14 08:10 | NUR ---
PT RESTING IN BED WITH CPM IN PLACE TO LEFT LOWER EXT. PT LEONEL WELL. DRESSING C/D/I. IV TO RIGHT AC WITH 1/2 NS @ 75 ML/HR INFUSING VIA PUMP. SITE WITHOUT REDNESS OR EDEMA. DENIES FURTHER NEEDS AT THIS TIME. CL WITHIN REACH. ENCOURAGED TO CALL WITH NEEDS. CONTINUE POC
[2019-03-14 08:40] VITALS: BP 104/41
[2019-03-14 12:03] VITALS: BP 117/70
--- NOTE | 2019-03-14 15:36 | MORECARE ---
CASE MANAGEMENT DISCHARGE SUMMARY PATIENT: CALEB TELLEZ UNIT: [id number] ADM DATE: 03/13/19 AGE: 68 : 50 SEX: F ROOM/BED: D.2223 AUTHOR: PRINCE YUN PHYSICIAN: REFERRING PHYSICIAN: MISAEL CORLEY DO DATE OF SERVICE: 03/14/19 Discharge Plan Patient Name: CALEB TELLEZ [facility] [facility] 1950 Planned Disposition: Home Anticipated Discharge Date: 03/15/19 Discharge Date: Expected LOS: 2 Initial Reviewer: [email or web address] Initial Review Date: 03/14/2019 Generated: 03/14/19 4:36 pm Patient Name: CALEB TELLEZ Page [id number] at 1536 All edits/amendments must be made on the electronic document DICTATION DATE: 03/14/19 1536 SAP BI DEVELOPER: FERMIN 03/14/19 1536 RPT#: [id number] DC DATE: STATUS: ADM IN [facility] [address] [place] [address] END OF REPORT
--- NOTE | 2019-03-14 15:44 | MORECARE ---
CASE MANAGEMENT DISCHARGE SUMMARY PATIENT: CALEB TELLEZ UNIT: [id number] ADM DATE: 03/13/19 AGE: 68 : 50 SEX: F ROOM/BED: D.2223 AUTHOR: COURT,DOC PHYSICIAN: REFERRING PHYSICIAN: MISAEL CORLEY DO DATE OF SERVICE: 03/14/19 Discharge Plan Patient Name: CALEB TELLEZ Facility: [facility]:[place] : 1950 Planned Disposition: Home Anticipated Discharge Date: 03/15/19 Discharge Date: Expected LOS: 2 Initial Reviewer: [email or web address] Initial Review Date: 03/14/2019 Generated: 03/14/19 4:44 pm Comments DCP- Discharge Planning Updated by [email or web address]: Dennise Liu on 03/14/19 2:[address] Patient Name: CALEB TELLEZ Admission Status: Elective Accout number: [id number] Admission Date: 03-13-2019 : 1950 Admission Diagnosis: Attending: MISAEL CORLEY Current LOS: 1 Anticipated DC Date: 03-15-2019 Planned Disposition: Home Primary Insurance: MEDICARE A & B Discharge Planning Comments: CM met with patient and her to discuss discharge planning/needs. States she lives with her in a safe environment. States she plans to return there. States she is seeing a wound clinic for an abdominal wound, therefore does not want [facility] for her PT. States she would like OP PT at [facility] OP PT. I called and spoke to Barbara, she states they do not have OP PT and suggests [facility] in [place]. Patient and agree to [facility]. She states she has already had all her DME delivered ordered per Dr. Corley. CM will continue to follow and assist with discharge planning/needs. Correction Warden: Dennise Liu DCPIA - Discharge Planning Initial Assessment Updated by [email or web address]: Dennise Liu on 03/14/19 3:39 pm * Is the patient Alert and Oriented? Yes * How many steps to enter\exit or inside your home? Ramp/0 * PCP Dr. Varela * Pharmacy [facility] in [facility] * Preadmission Environment Home with Family * ADLs Independent * Equipment Bedside Commode Elevated Toliet Seat Hospital Bed Oxygen Shower Chair Walker Wheelchair * Other Equipment CPM Ice Machine * List name and contact numbers for known caregivers / representatives who currently or will assist patient after discharge: Som prince - [phone] * Verbal permission to speak to the caregivers and representatives has been obtained from the patient. Yes * Community resources currently utilized Other * Please name any agencies selected above. Goes to a wound clinic for abdominal wound * Additional services required to return to the preadmission environment? Yes * Can the patient safely return to the preadmission environment? Yes * Has this patient been hospitalized within the prior 30 days at any hospital? No Last DP export: 03/14/19 2:36 pm Patient Name: CALEB TELLEZ Page [id number] at 1544 All edits/amendments must be made on the electronic document DICTATION DATE: 03/14/191543 WINTER SPORTS MANAGER: FERMIN 03/14/19 1544 RPT#: [id number] [place] DATE: STATUS: ADM IN [facility] [address] [place] [address] END OF REPORT
--- NOTE | 2019-03-14 15:53 | MORECARE ---
CASE MANAGEMENT DISCHARGE SUMMARY PATIENT: CALEB TELLEZ UNIT: [id number] ADM DATE: 03/13/19 AGE: 68 : 50 SEX: F ROOM/BED: D.2223 AUTHOR: COURT,DOC PHYSICIAN: REFERRING PHYSICIAN: MISAEL CORLEY DO DATE OF SERVICE: 03/14/19 Discharge Plan Patient Name: CALEB TELLEZ Facility: [facility]:[place] : 1950 Planned Disposition: Home Anticipated Discharge Date: 03/15/19 Discharge Date: Expected LOS: 2 Initial Reviewer: [email or web address] Initial Review Date: 03/14/2019 Generated: 03/14/19 4:53 pm Comments DCP- Discharge Planning Updated by [email or web address]: Dennise Liu on 03/14/19 2:[address] Patient Name: CALEB TELLEZ Admission Status: Elective Accout number: [id number] Admission Date: 03-13-2019 : 1950 Admission Diagnosis: Attending: MISAEL CORLEY Current LOS: 1 Anticipated DC Date: 03-15-2019 Planned Disposition: Home Primary Insurance: MEDICARE A & B Discharge Planning Comments: CM met with patient and her to discuss discharge planning/needs. States she lives with her in a safe environment. States she plans to return there. States she is seeing a wound clinic for an abdominal wound, therefore does not want [facility] for her PT. States she would like OP PT at [facility] OP PT. I called and spoke to Barbara, she states they do not have OP PT and suggests [facility] in [place]. Patient and agree to [facility]. She states she has already had all her DME delivered ordered per Dr. Corley. CM will continue to follow and assist with discharge planning/needs. Caustic Cresylate Shift Superintendent: Dennise Liu DCPIA - Discharge Planning Initial Assessment Updated by [email or web address]: Dennise Liu on 03/14/19 3:39 pm * Is the patient Alert and Oriented? Yes * How many steps to enter\exit or inside your home? Ramp/0 * PCP Dr. Varela * Pharmacy [facility] in [facility] * Preadmission Environment Home with Family * ADLs Independent * Equipment Bedside Commode Elevated Tol[place] Seat Hospital Bed Oxygen Shower Chair Walker Wheelchair * Other Equipment CPM Ice Machine * List name and contact numbers for known caregivers / representatives who currently or will assist patient after discharge: Som prince - [phone] * Verbal permission to speak to the caregivers and representatives has been obtained from the patient. Yes * Community resources currently utilized Other * Please name any agencies selected above. Goes to a wound clinic for abdominal wound * Additional services required to return to the preadmission environment? Yes * Can the patient safely return to the preadmission environment? Yes * Has this patient been hospitalized within the prior 30 days at any hospital? No External Providers External Provider: OTHER-OTHER Next Contact Date: Service Request Date: Service Type: Resolution: Reviewer: Comments: Last DP export: 03/14/19 2:44 pm Patient Name: CALEB TELLEZ Page [id number] at 1553 All edits/amendments must be made on the electronic document DICTATION DATE: 03/14/191552 SEARCH MARKETING COORDINATOR: FERMIN 03/14/191552 RPT#: [id number] DC DATE: STATUS: ADM IN [facility] [address] [place] [address] END OF REPORT
--- NOTE | 2019-03-14 16:04 | MORECARE ---
CASE MANAGEMENT DISCHARGE SUMMARY PATIENT: CALEB TELLEZ UNIT: [id number] ADM DATE: 03/13/19 AGE: 68 : 50 SEX: F ROOM/BED: D.2223 AUTHOR: COURT,DOC PHYSICIAN: REFERRING PHYSICIAN: MISAEL CORLEY DO DATE OF SERVICE: 03/14/19 Discharge Plan Patient Name: CALEB TELLEZ Facility: [facility]:[place] : 1950 Planned Disposition: Home Anticipated Discharge Date: 03/15/19 Discharge Date: Expected LOS: 2 Initial Reviewer: [email or web address] Initial Review Date: 03/14/2019 Generated: 03/14/19 5:04 pm Comments DCP- Discharge Planning Updated by [email or web address]: Dennise Noe on 03/14/19 2:[address] Spoke with Jenny at [facility] in [place]. She is to start OP PT on Tuesday at 1300. , order and clinical faxed. Patient given copy of order and time. CM will continue to follow and assist with discharge planning/needs. DCP- Discharge Planning Updated by [email or web address]: Dennise Noe on 03/14/19 2:[address] Patient Name: CALEB TELLEZ Admission Status: Elective Accout number: [id number] Admission Date: 03-13-2019 : 1950 Admission Diagnosis: Attending: MISAEL CORLEY Current LOS: 1 Anticipated DC Date: 03-15-2019 Planned Disposition: Home Primary Insurance: MEDICARE A & B Discharge Planning Comments: CM met with patient and her to discuss discharge planning/needs. States she lives with her in a safe environment. States she plans to return there. States she is seeing a wound clinic for an abdominal wound, therefore does not want [facility] for her PT. States she would like OP PT at [facility] OP PT. I called and spoke to Barbara, she states they do not have OP PT and suggests [facility] in [place]. Patient and agree to [facility]. She states she has already had all her DME delivered ordered per Dr. Corley. CM will continue to follow and assist with discharge planning/needs. Geospatial Imagery Intelligence Analyst: Dennise Liu DCPIA - Discharge Planning Initial Assessment Updated by [email or web address]: Dennise Noe on 03/14/19 3:39 pm * Is the patient Alert and Oriented? Yes * How many steps to enter\exit or inside your home? Ramp/0 * PCP Dr. Varela * Pharmacy [facility] in [facility] * Preadmission Environment Home with Family * ADLs Independent * Equipment Bedside Commode Elevated [facility] Bed Oxygen Shower Chair Walker Wheelchair * Other Equipment CPM Ice Machine * List name and contact numbers for known caregivers / representatives who currently or will assist patient after discharge: Som [facility] [phone] * Verbal permission to speak to the caregivers and representatives has been obtained from the patient. Yes * Community resources currently utilized Other * Please name any agencies selected above. Goes to a wound clinic for abdominal wound * Additional services required to return to the preadmission environment? Yes * Can the patient safely return to the preadmission environment? Yes * Has this patient been hospitalized within the prior 30 days at any hospital? No Last DP export: 03/14/19 2:53 pm Patient Name: CALEB TELLEZ Page 95781 at 1604 All edits/amendments must be made on the electronic document DICTATION DATE: 03/14/191602 INSTRUCTOR ROBOTICS: FERMIN 03/14/191602 RPT#: [id number] DC DATE: STATUS: ADM IN [facility] [address] [place] [address] END OF REPORT
[2019-03-14 17:29] VITALS: BP 100/59
[2019-03-14 20:15] VITALS: BP 116/44
[2019-03-15 00:30] VITALS: BP 107/40
[2019-03-15 04:04] LABS: BASOPHILS 0.1 % (0-2); EOSINOPHILS 0.4 % (0-7); HEMATOCRIT 27.7 % (36.0-48.0); HEMOGLOBIN 9.2 g/dL (12-16); IMMATURE GRANULOCYTES 0.1 % (0-5); LYMPHOCYTES 14.4 % (15-50); MCH 30.4 pg (26.0-34.0); MCHC 33.2 g/dL (31.0-37.0); MCV 91.4 fL (80.0-100.0); MEAN PLATELET VOLUME 9.3 fL (7.4-10.4); PLATELET COUNT 140 10x3/uL (130-400); RBC 3.03 10x6/uL (4.00-5.40); RDW 14.6 % (11.5-14.5); WBC 7.3 10x3/uL (4.8-10.8)
[2019-03-15 04:08] LABS: ANION GAP 11.8 mmol/L (8-16); CALCIUM 8.2 mg/dL (8.5-10.1); CARBON DIOXIDE 25.3 mmol/L (21.0-32.0); POTASSIUM - SERUM 4.1 mmol/L (3.5-5.1)
[2019-03-15 04:11] LABS: CREATININE - SERUM 1.2 mg/dL (0.6-1.3)
[2019-03-15 04:30] VITALS: BP 108/50
--- NOTE | 2019-03-15 07:40 | NUR ---
PT RESTING IN BED. NO ACUTE DISTRESS NOTED. REPORTS PAIN 6/10 AT THIS TIME. IV TO RIGHT AC WITH 1/2 NS @ 50ML/HR INFUSING VIA PUMP. SITE WITHOUT REDNESS OR EDEMA. DRESSING TO ABDOMEN C/D/I. DRESSING TO LEFT LOWER EXTREMITY C/D/I. PAIN MEDICATION TO BE ADMINISTERED PER MD ORDERS. DENIES FUTHER NEEDS AT THIS TIME. CL WITHIN REACH. ENCOURAGED TO CALL WITH NEEDS. CONTINUE POC
[2019-03-15 09:14] VITALS: BP 123/61
--- NOTE | 2019-03-15 11:55 | MORECARE ---
CASE MANAGEMENT DISCHARGE SUMMARY PATIENT: CALEB TELLEZ UNIT: [id number] ADM DATE: 03/13/19 AGE: 68 : 50 SEX: F ROOM/BED: D.2223 AUTHOR: COURT,DOC PHYSICIAN: REFERRING PHYSICIAN: MISAEL CORLEY DO DATE OF SERVICE: 03/15/19 Discharge Plan Patient Name: CALEB TELLEZ Facility: [facility]:[place] : 1950 Planned Disposition: Home Anticipated Discharge Date: 03/15/19 Discharge Date: Expected LOS: 2 Initial Reviewer: [email or web address] Initial Review Date: 03/14/2019 Generated: 03/15/19 12:55 pm Comments DCP- Discharge Planning Updated by [email or web address]: Dennise Liu on 03/15/19 10:[address] Patient Name: CALEB ETLLEZ Encounter No: [id number] : 1950 Primary Insurance: MEDICARE A & B Anticipated DC Date: 03-15-2019 Planned Disposition: Home External Planned Provider: : DCP follow-up note: Patient and family in agreement with discharge plan. No changes to plan. Case management will follow and assist as needed. Dennise Villarrealkobe DCP- Discharge Planning Updated by [id number]: Dennise Liu on 03/14/19 2:[address] Spoke with Jenny at [facility] in [place]. She is to start OP PT on Tuesday at 1300. , order and clinical faxed. Patient given copy of order and time. CM will continue to follow and assist with discharge planning/needs. DCP- Discharge Planning Updated by [email or web address]: Dennise Villarrealkobe on 03/14/19 2:[address] Patient Name: CALEB TELLEZ Admission Status: Elective Accout number: [id number] Admission Date: 03-13-2019 : 1950 Admission Diagnosis: Attending: MISAEL CORLEY Current LOS: 1 Anticipated DC Date: 03-15-2019 Planned Disposition: Home Primary Insurance: MEDICARE A & B Discharge Planning Comments: CM met with patient and her to discuss discharge planning/needs. States she lives with her in a safe environment. States she plans to return there. States she is seeing a wound clinic for an abdominal wound, therefore does not want [facility] for her PT. States she would like OP PT at [facility] OP PT. I called and spoke to Barbara, she states they do not have OP PT and suggests [facility] in [place]. Patient and agree to [facility]. She states she has already had all her DME delivered ordered per Dr. Corley. CM will continue to follow and assist with discharge planning/needs. Integrated Logistics Programs Director: Dennise Liu DCPIA - Discharge Planning Initial Assessment Updated by [email or web address]: Dennise Liu on 03/14/19 3:39 pm * Is the patient Alert and Oriented? Yes * How many steps to enter\exit or inside your home? Ramp/0 * PCP Dr. Varela * Pharmacy [facility] in [facility] * Preadmission Environment Home with Family * ADLs Independent * Equipment Bedside Commode Elevated [facility] Bed Oxygen Shower Chair Walker Wheelchair * Other Equipment CPM Ice Machine * List name and contact numbers for known caregivers / representatives who currently or will assist patient after discharge: Som Gross - [phone] * Verbal permission to speak to the caregivers and representatives has been obtained from the patient. Yes * Community resources currently utilized Other * Please name any agencies selected above. Goes to a wound clinic for abdominal wound * Additional services required to return to the preadmission environment? Yes * Can the patient safely return to the preadmission environment? Yes * Has this patient been hospitalized within the prior 30 days at any hospital? No Last DP export: 03/14/19 3:04 pm Patient Name: CALEB TELLEZ Page 11598 at 1155 All edits/amendments must be made on the electronic document DICTATION DATE: 03/15/19 115 COTTON BROKER: FERMIN 03/15/19 1155 RPT#: [id number] DC DATE: STATUS: ADM IN [facility] [address] [facility] [place] [address] END OF REPORT
[2019-03-15 12:17] VITALS: BP 132/54
[2019-03-15] MEDS ORDERED: ELIQUIS2.5 MG PO (13:09)
[2019-03-15] MEDS ORDERED: NEURONTIN 300300 MG PO (13:09)
[2019-03-15] MEDS ORDERED: VISTARIL50 MG PO (13:10)
[2019-03-15] MEDS ORDERED: KEFLEX500 MG PO (13:11)
[2019-03-15] MEDS ORDERED: OXYCODONE HCL5 M1 PO (13:11)
--- NOTE | 2019-03-15 14:30 | NUR ---
PT DISCHARGE PAPERS PROVIDED. DISCUSSED FOLLOW UP APPOINTMENTS AND PRESCRIPTIONS. EDUCATED REGARDING MONITORING FOR S/S OF INFECTION AND WHEN TO NOTIFY MD. PT DENIES QUESTIONS AT THIS TIME. IV TO RIGHT AC D/C, CATH INTACT. PT TAKEN OUT VIA W/C TO PRIVATE VEHICLE WITH PERSONAL BELONGINGS.
--- NOTE | 2019-03-16 14:09 | MORECARE ---
CASE MANAGEMENT DISCHARGE SUMMARY PATIENT: CALEB TELLEZ UNIT: [id number] ADM DATE: 03/13/19 AGE: 68 : 50 SEX: F ROOM/BED: D.2223 AUTHOR: COURT,DOC PHYSICIAN: REFERRING PHYSICIAN: MISAEL CORLEY DO DATE OF SERVICE: 03/16/19 Discharge Plan Patient Name: CALBE TELLEZ Facility: [facility]:[place] : 1950 Planned Disposition: Home Anticipated Discharge Date: 03/15/19 Discharge Date: 03/15/2019 Expected LOS: 2 Initial Reviewer: [email or web address] Initial Review Date: 03/14/2019 Generated: 03/16/19 3:08 pm Comments DCP- Discharge Planning Updated by [email or web address]: Denniserossana Liu on 03/15/19 10:[address] Patient Name: CALEB TELLEZ Encounter No: [id number] : 1950 Primary Insurance: MEDICARE A & B Anticipated DC Date: 03-15-2019 Planned Disposition: Home External Planned Provider: : DCP follow-up note: Patient and family in agreement with discharge plan. No changes to plan. Case management will follow and assist as needed. Dennise Villarrealkobe DCP- Discharge Planning Updated by [email or web address]: Dennise Liu on 03/14/19 2:[address] Spoke with Jenny at [facility] in [place]. She is to start OP PT on Tuesday at 1300. , order and clinical faxed. Patient given copy of order and time. CM will continue to follow and assist with discharge planning/needs. DCP- Discharge Planning Updated by [email or web address]: Dennise Villarrealkobe on 03/14/19 2:[address] Patient Name: CALEB TELLEZ Admission Status: Elective Accout number: [id number] Admission Date: 03-13-2019 : 1950 Admission Diagnosis: Attending: MISAEL CORLEY Current LOS: 1 Anticipated DC Date: 03-15-2019 Planned Disposition: Home Primary Insurance: MEDICARE A & B Discharge Planning Comments: CM met with patient and her to discuss discharge planning/needs. States she lives with her in a safe environment. States she plans to return there. States she is seeing a wound clinic for an abdominal wound, therefore does not want [facility] for her PT. States she would like OP PT at [facility] OP PT. I called and spoke to Barbara, she states they do not have OP PT and suggests [facility] in [place]. Patient and agree to [facility]. She states she has already had all her DME delivered ordered per Dr. Corley. CM will continue to follow and assist with discharge planning/needs. Financial Systems Analyst: Dennise Liu DCPIA - Discharge Planning Initial Assessment Updated by [email or web address]: Dennise Liu on 03/14/19 3:39 pm * Is the patient Alert and Oriented? Yes * How many steps to enter\exit or inside your home? Ramp/0 * PCP Dr. Varela * Pharmacy [facility] in [facility] * Preadmission Environment Home with Family * ADLs Independent * Equipment Bedside Commode Elevated [facility] Bed Oxygen Shower Chair Walker Wheelchair * Other Equipment CPM Ice Machine * List name and contact numbers for known caregivers / representatives who currently or will assist patient after discharge: Som niki - [phone] * Verbal permission to speak to the caregivers and representatives has been obtained from the patient. Yes * Community resources currently utilized Other * Please name any agencies selected above. Goes to a wound clinic for abdominal wound * Additional services required to return to the preadmission environment? Yes * Can the patient safely return to the preadmission environment? Yes * Has this patient been hospitalized within the prior 30 days at any hospital? No Last DP export: 03/15/19 10:55 am Patient Name: CALEB TELLEZ Page 35257 at 1409 All edits/amendments must be made on the electronic document DICTATION DATE: 03/16/191407 PHONE SPECIALIST: FERMIN 03/16/191407 RPT#: [id number] DC DATE:03/15/19 STATUS: DIS IN [facility] [address] [place] [address] END OF REPORT
== END 2019-03-15 14:30 | disposition home or self-care (01) | DRG 470 ==
LOC: D.SDCHOLD 02-27 07:30 → D.MS 03-13 05:00 → D.SDCHOLD 03-13 05:00 → D.MS 03-13 10:28
PROVIDERS: Internal Medicine Nephrology; ADMIT Orthopaedic Surgery; ATTEND Orthopaedic Surgery
PROC: 0SRD0JZ Replacement of Left Knee Joint with Synthetic Substitute, Open Approach (ICD-10-PCS; principal; 2019-03-13 07:00)
DX: M17.12 Unilateral primary osteoarthritis, left knee (principal); D62 Acute posthemorrhagic anemia; E03.9 Hypothyroidism, unspecified; I10 Essential (primary) hypertension; G62.9 Polyneuropathy, unspecified; I25.10 Atherosclerotic heart disease of native coronary artery without angina pectoris; K21.9 Gastro-esophageal reflux disease without esophagitis; M35.00 Sjogren syndrome, unspecified; M32.9 Systemic lupus erythematosus, unspecified

== ENCOUNTER → 2019-06-06 11:06 | Outpatient (CLI) | payer MEDICARE, OTHER ==
[2019-03-13 11:29] VITALS: BMI 31.2
[~2019-06-06 11:06] MED LIST changes: +BACLOFEN20 M1 PO; +BAYER CHEWABLE81 MG PO; +ELIQUIS2.5 MG PO; +HYDROCODON-ACE1 EA10 PO; +HYSINGLA ER20 MG PO; +KEFLEX500 MG PO; +LOSARTAN POTASSIUM PO; +NEURONTIN 300300 MG PO; +OXYCODONE HCL5 M1 PO; +VISTARIL50 MG PO; +VITAMIN B-122500 MCG PO; +VITAMIN D250000 UNIT PO; +VITAMIN D3400 UNI1 PO
== END | disposition home or self-care (01) ==
LOC: D.MRI 11:06
PROVIDERS: ATTEND Orthopaedic Surgery
DX: M75.101 Unspecified rotator cuff tear or rupture of right shoulder, not specified as traumatic (principal)

== ENCOUNTER → 2019-06-14 11:59 | Outpatient (CLI) | payer MEDICARE, OTHER ==
[2019-03-13 11:29] VITALS: BMI 31.2
== END | disposition home or self-care (01) ==
LOC: D.LABREF 11:59
PROVIDERS: ATTEND Orthopaedic Surgery
DX: M19.011 Primary osteoarthritis, right shoulder (principal)

== ENCOUNTER 2019-06-19 13:43 | Inpatient (IN) | payer MEDICARE, OTHER ==
[~2019-06-19] VITALS: Ht 170.2 cm; Wt 90.9 kg
[2019-07-20] MEDS ORDERED: HYDROCODON-ACE1 EA10 PO (14:16)
[2019-07-20 14:57] LABS: BASOPHILS 0.2 % (0-2); EOSINOPHILS 2.3 % (0-7); HEMATOCRIT 35.5 % (36.0-48.0); HEMOGLOBIN 11.6 g/dL (12-16); IMMATURE GRANULOCYTES 0.1 % (0-5); MCH 27.9 pg (26.0-34.0); MCHC 32.7 g/dL (31.0-37.0); MCV 85.3 fL (80.0-100.0); MEAN PLATELET VOLUME 8.7 fL (7.4-10.4); MONOCYTES 9.5 % (2-11); NEUTROPHILS 60.9 % (40-80); RBC 4.16 10x6/uL (4.00-5.40); RDW 15.9 % (11.5-14.5); WBC 8.1 10x3/uL (4.8-10.8)
[2019-07-20 15:03] LABS: PLATELET COUNT 215 10x3/uL (130-400)
[2019-07-20 15:11] LABS: ANION GAP 9.6 mmol/L (8-16); CALCIUM 8.6 mg/dL (8.5-10.1); CARBON DIOXIDE 29.6 mmol/L (21.0-32.0); CREATININE - SERUM 0.9 mg/dL (0.6-1.3); POTASSIUM - SERUM 4.2 mmol/L (3.5-5.1)
[2019-07-20 15:13] LABS: APTT 30.5 SECONDS (22.8-39.4); INR 1.04 (0.85-1.17); PROTIME 13.1 SECONDS (11.6-15.0)
[2019-07-20 15:15] LABS: APPEARANCE CLEAR (CLEAR); BILIRUBIN NEGATIVE (NEGATIVE); COLOR YELLOW (YELLOW); GLUCOSE NEGATIVE (NEGATIVE); KETONE NEGATIVE (NEGATIVE); NITRITE NEGATIVE (NEGATIVE); PROTEIN NEGATIVE (NEGATIVE); UROBILINOGEN NORMAL (NORMAL); WHITE CELLS - URINE >50 /hpf (0-5)
[2019-07-20 15:19] LABS: BACTERIA MODERATE /hpf (NONE SEEN); RED CELLS - URINE 0-5 /hpf (0-5)
--- NOTE | 2019-07-24 07:37 | NUR ---
0735 PT WITH ALLERGY TO IODINATED CONTRAST. CLARIFIED WITH PATIENT THAT SHE HAS USED BETADINE PREVIOUSLY WITHOUT ALLERGIC REACTION. PT STATES SHE USED THE IODINE NASAL SWABS IN April, WITH NO ADVERSE REACTION & THE CT WITH REACTION WAS PRIOR TO THAT. Piero SANTIAGO R.N.
[2019-07-24 08:32] VITALS: BP 115/58; BMI 31.4
--- NOTE | 2019-07-24 10:52 | NUR ---
PLASMA BLADE SET TO 6/8 BOVIE PAD R THIGH LOT [id number] EXP 12/07/2020 PREPPED FROM RIGHT SHOULDER TO FINGERS CIRCUMFERENTIALLY WITH HIBICLEANSE AND ALCOHOL AND CHLORAPREP LAMINAR FLOW IN USE TRAFFIC MONITORED IN AND OUT OF ROOM KEPT TO MINIMUM
--- NOTE | 2019-07-24 12:52 | NUR ---
60CC OF RED FLUID REMOVED FROM BOOM DRAIN @1240
[2019-07-24 12:59] VITALS: BP 112/57
[2019-07-24 13:08] VITALS: BP 112/57; Ht 170.2 cm; Wt 90.9 kg
--- NOTE | 2019-07-24 14:44 | OP ---
PATIENT NAME: CALEB ESQUIVEL MEDICAL RECORD: [id number] :[birth year] LOCATION:D.MS [id number] ADMISSION DATE:07/24/19 SURGEON: MISAEL CORLEY DO DATE OF OPERATION: 07/24/2019 PROCEDURE PERFORMED: Right reverse total shoulder arthroplasty. PREOPERATIVE DIAGNOSIS: Right shoulder rotator cuff tear arthropathy. POSTOPERATIVE DIAGNOSIS: Right shoulder rotator cuff tear arthropathy. INDICATIONS: Ms. Esquivel is a 69-year-old female who had right shoulder pain for quite some time. She was tired of dealing with the lack of mobility and pain with lifting. She got an MRI, which showed a retracted supraspinatus tear. I informed her we could try to fix it. She did not want that, she had been through that before. I told her the other option was reverse total shoulder. She liked that option better. She is aware of the risks including infection, fracture, damage to nerves and vessels, need for further surgery, loss of use of the arm and signed the consent. SURGEON: Misael Corley DO DESCRIPTION OF PROCEDURE: The patient was taken to the operative suite, laid in the supine position, sedated and then intubated. The patient was then placed in the beach chair position. The right upper extremity was prepped and draped in sterile fashion. A timeout was performed, everyone was in agreement with the correct side, site, patient and procedure. The patient received 900 mg of clindamycin preoperatively. Once the shoulder was prepped and draped, the incision had been marked out and then Ioban was covered around the shoulder. Incision then began in the deltopectoral interval. Careful dissection was made down to the interval with a 10-blade scalpel and a plasma blade. Any bleeders were coagulated with Aquamantys. The pec was then exposed and the proximal centimeter of the pec was taken off the humeral attachment. The long head of the biceps tendon was then sutured to the stump that was left to the pec tendon on the humerus and then the bicep tendon was removed. The subscapularis was exposed after the clavipectoral fascia was dissected out and the subscap was peeled off after being tagged of the lesser tuberosity. This opened the joint up and the humeral head popped out. The humeral head was in the shaft, centered then with the cutting guide, the humeral head was then cut. The glenoid was then exposed and the labrum was removed off the glenoid and the centering pin was used and I drilled and then the reamer was used to remove the cartilage. The glenosphere hole was then drilled and sized to be 35. The 25 baseplate was then put in, had a good bite with the 35 screw. Three peripheral screws were then placed, two 26s and a 14 in the superior-anterior, posterior-inferior, and the posterior-superior with good bite with those screws. The glenosphere was then placed and impacted and tightened down. The humerus was then exposed and sized to be a 6. We trialed with the 6 poly. This fit very well, had good motion and good tension on the soft tissues including conjoined tendon and deltoid fibers. This was then dislocated and the actual implant was placed and after irrigation, then the shoulder was reduced and fit very well. There was no shucking and good tension on the soft tissues as the trial was. The shoulder was then irrigated with Bactisure and normal saline, a liter of each and then a drain was placed, taken out through the superior shoulder and then Shreyas and tobramycin and vancomycin powder placed in the shoulder. Shoulder was then closed with #1 Vicryl, loosely closing the deltopectoral interval and then 2-0 OPERATIVE REPORT [id number] CALEB ESQUIVEL Vicryl in inverted interrupted fashion and 4-0 Monocryl ran on the skin and Prineo glue on the skin. The shoulder was then dressed with Telfa and Tegaderm. The drain was secured with 2 Tegaderms. She was awakened and put in a sling and taken to recovery in stable condition. Blood loss approximately 250 mL. COMPLICATIONS: None. TRANSINT:[id number] Voice Confirmation ID: [id number] DOCUMENT ID: [id number] MISAEL CORLEY DO at 1444 CC: [id number] DICTATION DATE: 07/24/19 1137 PULLING UNIT OPERATOR: 07/24/19 1229 ADM IN [facility] [address] [place] [address]
[2019-07-24 15:12] LABS: BASOPHILS 0 % (0-2); EOSINOPHILS 0.1 % (0-7); HEMATOCRIT 33.8 % (36.0-48.0); IMMATURE GRANULOCYTES 0.1 % (0-5); LYMPHOCYTES 7.8 % (15-50); MCH 27.6 pg (26.0-34.0); MCHC 32.5 g/dL (31.0-37.0); MCV 84.9 fL (80.0-100.0); MEAN PLATELET VOLUME 8.8 fL (7.4-10.4); MONOCYTES 2.5 % (2-11); NEUTROPHILS 89.5 % (40-80); PLATELET COUNT 173 10x3/uL (130-400); RBC 3.98 10x6/uL (4.00-5.40); RDW 15.9 % (11.5-14.5); WBC 6.9 10x3/uL (4.8-10.8)
[2019-07-24 15:41] LABS: ALBUMIN 2.8 g/dL (3.4-5.0); ANION GAP 12.6 mmol/L (8-16); BILIRUBIN - TOTAL 0.28 mg/dL (0.2-1.3); CALCIUM 8.2 mg/dL (8.5-10.1); CARBON DIOXIDE 26.5 mmol/L (21.0-32.0); CREATININE - SERUM 0.9 mg/dL (0.6-1.3); POTASSIUM - SERUM 5.1 mmol/L (3.5-5.1); PROTEIN - SERUM 6.5 g/dL (6.4-8.2)
[2019-07-24 16:12] VITALS: BP 129/81
[2019-07-24 20:00] VITALS: BP 91/69
[2019-07-24 20:02] LABS: APPEARANCE CLEAR (CLEAR); BILIRUBIN NEGATIVE (NEGATIVE); COLOR YELLOW (YELLOW); GLUCOSE NEGATIVE (NEGATIVE); KETONE NEGATIVE (NEGATIVE); NITRITE NEGATIVE (NEGATIVE); PROTEIN NEGATIVE (NEGATIVE); SPECIFIC GRAVITY 1.025 (1.005-1.020); UROBILINOGEN NORMAL (NORMAL)
--- NOTE | 2019-07-25 03:48 | NUR ---
PATIENT RESTING IN BED ALERT AND ORENTED ABLE TO VOICE NEEDS AND WANTS TO STAFF. O2 AT 3L VIA N/C , IV TO LEFT HAND WITH 1/2 NS AT [address] AND PATEN. DRESSING CDI TO RIGHT SHOULDER SLING IN PLACCE. BOOM DRAIN IN PLACE WITH BLODDY DRANAGE . WATER AND CALL LIGHT IN REACH. INCENTIVE SPIRORMETER IN REACH, SCD ON ICE PACK FOR ARM FAMILY AT BEDSIDE. NO S/S OF DISTRESS NOTED
[2019-07-25 04:00] VITALS: BP 131/61
[2019-07-25 06:31] LABS: BASOPHILS 0.1 % (0-2); EOSINOPHILS 0 % (0-7); HEMATOCRIT 29.7 % (36.0-48.0); HEMOGLOBIN 9.7 g/dL (12-16); IMMATURE GRANULOCYTES 0.3 % (0-5); LYMPHOCYTES 9.8 % (15-50); MCH 27.2 pg (26.0-34.0); MCHC 32.7 g/dL (31.0-37.0); MCV 83.4 fL (80.0-100.0); MEAN PLATELET VOLUME 8.9 fL (7.4-10.4); MONOCYTES 10.3 % (2-11); NEUTROPHILS 79.5 % (40-80); PLATELET COUNT 181 10x3/uL (130-400); RBC 3.56 10x6/uL (4.00-5.40); RDW 15.8 % (11.5-14.5); WBC 6.8 10x3/uL (4.8-10.8)
[2019-07-25 07:18] LABS: ALBUMIN 2.4 g/dL (3.4-5.0); ALKALINE PHOSPHATASE 92 U/L (46-116); ALT (SGPT) 17 U/L (10-68); BILIRUBIN - TOTAL 0.23 mg/dL (0.2-1.3); CALC OSMOLALITY 274 mosm/kg (275-300); CALCIUM 8.7 mg/dL (8.5-10.1); CARBON DIOXIDE 25.6 mmol/L (21.0-32.0); CHLORIDE - SERUM 103 mmol/L (98-107); CREATININE - SERUM 0.8 mg/dL (0.6-1.3); GLUCOSE 112 mg/dL (74-106); POTASSIUM - SERUM 4.6 mmol/L (3.5-5.1); PROTEIN - SERUM 5.8 g/dL (6.4-8.2); SODIUM 137 mmol/L (136-145); UREA NITROGEN 13 mg/dL (7-18); eGFR NON AFRICAN AMERICAN 75 mL/min (90-120)
--- NOTE | 2019-07-25 07:52 | NUR ---
PT IS RESTING IN BED WITH EYES OPEN. RESPIRATIONS ARE EVEN AND UNLABORED. PT DENIES PRESENCE OF PAIN/N/V AT THIS TIME. SLING TO RIGHT ARM IS ON. BOOM DRAIN TO RIGHT SHOULDER IN PLACE. BULB COMPRESSED. SMALL AMOUNT OF RED DRAINAGE NOTED TO BOOM BULB. PT REPORTS "A LITTLE" TINGLING IN RIGHT HAND BUT IS ABLE TO "FEEL IT FINE". PT REPORTS SLIGHT PAIN BUT DENIES NEEDS. BED IS IN THE LOWEST POSITION. CALL LIGHT AND BEDSIDE TABLE ARE WITHIN REACH. SIDE RAILS X 2. WILL CONT TO MONIOTR.
[2019-07-25 08:19] VITALS: BP 125/52
--- NOTE | 2019-07-25 10:58 | NUR ---
STUDENT NURSE ASSISTING WITH TRANSFERRING PT OFF OF BED HENRY AND PLACING DRY PADS UNDER PT. UPON ASSISTING WITH BED PAD PT STATES THAT STUDENT LIFTED RIGHT ARM "TOO FAR AND I HEARD A NOISE". PT REPORTS THAT SHE BELIEVES THAT SHE HAS HAD INCREASED DRAINAGE TO BOOM DRAIN SINCE THIS AM. DRAINAGE TO RIGHT BOOM LOOKS UNCHAGED TO THIS NURSE. PT DENIES CHANGE OF NEURO STATUS TO RIGHT SHOULDER/ARM/HAND/FINGERS. PAGE PLACED TO DR SCHAEFFER TO NOTIFY. WILL WAIT FOR ANY NEW ORDERS.
[2019-07-25 12:45] VITALS: BP 131/51
[2019-07-25] MEDS ORDERED: TORADOL10 MG PO (13:23)
--- NOTE | 2019-07-25 14:21 | MORECARE ---
CASE MANAGEMENT DISCHARGE SUMMARY PATIENT: CALEB TELLEZ UNIT: [id number] ADM DATE: 07/24/19 AGE: 69 : 50 SEX: F ROOM/BED: D.2208 AUTHOR: PRINCE YUN PHYSICIAN: REFERRING PHYSICIAN: MISAEL CORLEY DO DATE OF SERVICE: 07/25/19 Discharge Plan Patient Name: CALEB [facility]ELLEZ [facility] [facility] 1950 Planned Disposition: Home Health Service Anticipated Discharge Date: Discharge Date: Expected LOS: Initial Reviewer: [email or web address] Initial Review Date: 07/24/2019 Generated: 07/25/19 3:21 pm DCPIA - Discharge Planning Initial Assessment Updated by [email or web address]: Sunshine Arteaga on 07/25/19 2:20 pm * Is the patient Alert and Oriented? Yes * How many steps to enter\exit or inside your home? RAMP * PCP KARMEN * Pharm[facility] * Preadmission Environment Home with Family * ADLs Independent * Equipment Bedside Commode [facility] Bed Power Chair or Electric Scooter Rolling Walker Shower Chair Walker Wheelchair * List name and contact numbers for known caregivers / representatives who currently or will assist patient after discharge: NILE () * Verbal permission to speak to the caregivers and representatives has been obtained from the patient. Yes * Community resources currently utilized None * Additional services required to return to the preadmission environment? Yes * Can the patient safely return to the preadmission environment? Yes * Has this patient been hospitalized within the prior 30 days at any hospital? No External Providers External Provider: [facility] Next Contact Date: Service Request Date: Service Type: Resolution: Reviewer: Comments: Patient Name: CALEB TELLEZ Page 54682 at 1421 All edits/amendments must be made on the electronic document DICTATION DATE: 07/25/19 142 PARTS DRIVER: FERMIN 07/25/19 142 RPT#: [id number] DC DATE: STATUS: ADM IN [facility] [address] [place] [address] END OF REPORT
--- NOTE | 2019-07-25 14:31 | MORECARE ---
CASE MANAGEMENT DISCHARGE SUMMARY PATIENT: CALEB TELLEZ UNIT: [id number] ADM DATE: 07/24/19 AGE: 69 : 50 SEX: F ROOM/BED: D.6419 AUTHOR: COURT,DOC PHYSICIAN: REFERRING PHYSICIAN: MISAEL CORLEY DO DATE OF SERVICE: 07/25/19 Discharge Plan Patient Name: CALEB TELLEZ Facility: [facility]:[place] : 1950 Planned Disposition: Home Health Service Anticipated Discharge Date: Discharge Date: Expected LOS: Initial Reviewer: [email or web address] Initial Review Date: 07/24/2019 Generated: 07/25/19 3:30 pm Comments DCP- Discharge Planning Updated by [email or web address]: Sunshine Arteaga on 07/25/19 1:[address] Patient Name: CALEB TELLEZ Admission Status: Elective Accout number: [id number] Admission Date: 07-24-2019 : 1950 Admission Diagnosis: Attending: MISAEL CORLEY Current LOS: 1 Anticipated DC Date: Planned Disposition: Home Health Service Primary Insurance: MEDICARE A & B Discharge Planning Comments: CM met with patient to complete initial dc planning assessment. CM educated patient on the CM role and verbal consent given by patient to complete assessment. Patient lives at home with her where she is independent with her care. At discharge patient plans to return home and feels this is a safe discharge. CM discussed availability of home health, rehab services, and medical equipment. Patient would like home health at [place], order received from Dr Corley. Patient has a ramp, BSC, cane, walker, wheelchair, electric wheelchair, Elevated toilet seat, hospital bed with a trapeze bar. 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 IVON with [facility], I called [facility] and they will accept her. Patient denied known discharge needs at this time. CM will continue to follow and will assist as needed with dc plans/needs. Metal Hanging Helper: Sunshine Arteaga DCPIA - Discharge Planning Initial Assessment Updated by [email or web address]: Sunshine Arteaga on 07/25/19 2:20 pm * Is the patient Alert and Oriented? Yes * How many steps to enter\exit or inside your home? RAMP * PCP PERAZA * Pharmacy [facility] [place] * Preadmission Environment Home with Family * ADLs Independent * Equipment Bedside Commode Cane Elevated [facility] Bed Power Chair or Electric Scooter Rolling Walker Shower Chair Walker Wheelchair * List name and contact numbers for known caregivers / representatives who currently or will assist patient after discharge: NILE () * Verbal permission to speak to the caregivers and representatives has been obtained from the patient. Yes * Community resources currently utilized None * Additional services required to return to the preadmission environment? Yes * Can the patient safely return to the preadmission environment? Yes * Has this patient been hospitalized within the prior 30 days at any hospital? No Coverage Notice Reviewer: [email or web address] Renato Arteaga Notice Issued Date-Time: 07/25/2019 14:00 Notice Type: IM Discharge Notice Notice Delivered To: Family Member Relationship to Patient: Spouse Propagation Worker Name: NILE Delivery Method: HAND - Hand Delivered Rox Days: Prior Verbal Notification: Recipient Understood Notice: Yes Recipient Signature: Yes Med Rec Note Co-signed by Attending: Coverage Notice Comment: Last DP export: 07/25/19 1:21 p Patient Name: CALEB TELLEZ Page 47026 at 1431 All edits/amendments must be made on the electronic document DICTATION DATE: 07/25/191429 QUAL FIELD MANAGER: FERMIN 07/25/191429 RPT#: [id number] DC DATE: STATUS: ADM IN [facility] [address] [place] [address] END OF REPORT
--- NOTE | 2019-07-25 15:21 | NUR ---
ALL DISCHARGE INSTRUCTIONS COVERED WITH PT AND PT SPOUSE. PRINTED RX GIVEN TO PT SPOUSE. PIV TO LEFT HAND REMOVED WITH CATHETER TIP INTACT. DRESSING APPLIED. PT AND PT SPOUSE DENY FURTHER QUESTIONS/ CONCERNS AT THIS TIME. ALL DISCHARGE PAPERS SIGNED. PT REUQESTS THAT HER SIGN PAPERS DUE TO BEING RIGHT HANDED AND RIGHT SHOULDER IS IN SLING. ALL SIGNED DISCHARGE PAPERS PLACED IN PT CHART.
--- NOTE | 2019-07-25 15:45 | NUR ---
PT TRANSPORTED FROM ROOM VIA WHEELCHAIR FOR TRANSPORT HOME. PT DENIES FURTHER QUESTIONS.NEEDS/CONCERNS
--- NOTE | 2019-08-02 13:41 | MORECARE ---
CASE MANAGEMENT DISCHARGE SUMMARY PATIENT: CALEB TELLEZ UNIT: [id number] ADM DATE: 07/24/19 AGE: 69 : 50 SEX: F ROOM/BED: D.4222 AUTHOR: PRINCE YUN PHYSICIAN: REFERRING PHYSICIAN: MISAEL CORLEY DO DATE OF SERVICE: 08/02/19 Discharge Plan Patient Name: CALEB TELLEZ Facility: [facility]:[place] : 1950 Planned Disposition: Home Health Service Anticipated Discharge Date: Discharge Date: 07/25/2019 Expected LOS: 0 Initial Reviewer: [email or web address] Initial Review Date: 07/24/2019 Generated: 08/02/19 2:40 pm Comments DCP- Discharge Planning Updated by [email or web address]: Sunshine Arteaga on 07/25/19 1:[address] Patient Name: CALEB TELLEZ Admission Status: Elective Accout number: [id number] Admission Date: 07-24-2019 : 1950 Admission Diagnosis: Attending: MISAEL CORLEY Current LOS: 1 Anticipated DC Date: Planned Disposition: Home Health Service Primary Insurance: MEDICARE A & B Discharge Planning Comments: CM met with patient to complete initial dc planning assessment. CM educated patient on the CM role and verbal consent given by patient to complete assessment. Patient lives at home with her where she is independent with her care. At discharge patient plans to return home and feels this is a safe discharge. CM discussed availability of home health, rehab services, and medical equipment. Patient would like home health at [place], order received from Dr Corley. Patient has a ramp, BSC, cane, walker, wheelchair, electric wheelchair, Elevated toilet seat, hospital bed with a trapeze bar. Her will be her delivery route driver home. IVON with [facility], I called [facility] and they will accept her. Patient denied known discharge needs at this time. CM will continue to follow and will assist as needed with dc plans/needs. Chargeback Analyst: Sunshine Arteaga DCPIA - Discharge Planning Initial Assessment Updated by [email or web address]: Sunshine Arteaga on 07/25/19 2:20 pm * Is the patient Alert and Oriented? Yes * How many steps to enter\exit or inside your home? RAMP * PCP PERAZA * Pharmacy [facility] [place] * Preadmission Environment Home with Family * ADLs Independent * Equipment Bedside Commode Cane Elevated [facility] Bed Power Chair or Electric Scooter Rolling Walker Shower Chair Walker Wheelchair * List name and contact numbers for known caregivers / representatives who currently or will assist patient after discharge: NILE () * Verbal permission to speak to the caregivers and representatives has been obtained from the patient. Yes * Community resources currently utilized None * Additional services required to return to the preadmission environment? Yes * Can the patient safely return to the preadmission environment? Yes * Has this patient been hospitalized within the prior 30 days at any hospital? No Coverage Notice Reviewer: [id number] Renato Arteaga Notice Issued Date-Time: 07/25/2019 14:00 Notice Type: IM Discharge Notice Notice Delivered To: Family Member Relationship to Patient: Spouse Administrative Assistant Receptionist Name: NILE Delivery Method: HAND - Hand Delivered Rox Days: Prior Verbal Notification: Recipient Understood Notice: Yes Recipient Signature: Yes Med Rec Note Co-signed by Attending: Coverage Notice Comment: Last DP export: 07/25/19 1:31 p Patient Name: CALEB TELLEZ Page [phone] at 1341 All edits/amendments must be made on the electronic document DICTATION DATE: 08/02/19 1340 STATION ATTENDANT: FERMIN 08/02/19 1340 RPT#: [id number] DC DATE:07/25/19 STATUS: DIS IN [facility] [address] [place] [address] END OF REPORT
== END 2019-07-25 16:17 | disposition home health service (06) | DRG 483 ==
LOC: D.SDCHOLD 07-10 07:00 → D.MS 07-24 07:30 → D.SDCHOLD 07-24 09:05 → D.MS 07-25 16:17
PROVIDERS: Emergency Medicine; ADMIT Orthopaedic Surgery; ATTEND Orthopaedic Surgery
PROC: 0RRJ00Z Replacement of Right Shoulder Joint with Reverse Ball and Socket Synthetic Substitute, Open Approach (ICD-10-PCS; principal; 2019-07-24 09:45)
DX: M75.101 Unspecified rotator cuff tear or rupture of right shoulder, not specified as traumatic (principal); D62 Acute posthemorrhagic anemia; I10 Essential (primary) hypertension; E03.9 Hypothyroidism, unspecified; M35.00 Sjogren syndrome, unspecified; M32.9 Systemic lupus erythematosus, unspecified; E11.65 Type 2 diabetes mellitus with hyperglycemia; E11.40 Type 2 diabetes mellitus with diabetic neuropathy, unspecified; K21.9 Gastro-esophageal reflux disease without esophagitis; I25.10 Atherosclerotic heart disease of native coronary artery without angina pectoris; M19.90 Unspecified osteoarthritis, unspecified site; G25.81 Restless legs syndrome; M79.7 Fibromyalgia; M54.9 Dorsalgia, unspecified; E66.9 Obesity, unspecified; Z68.31 Body mass index [BMI] 31.0-31.9, adult

== ENCOUNTER 2020-03-23 16:47 | Inpatient (IN) | payer MEDICARE, OTHER ==
[~2020-03-23] VITALS: Ht 170.2 cm; Wt 82.6 kg
[2020-03-23] VITALS (11 sets, daily range): BP systolic 63–151; BP diastolic 31–76; BMI 28.5
[~2020-03-23 16:47] MED LIST changes: +TORADOL10 MG PO
[2020-03-23 17:22] LABS: HEMATOCRIT 45.3 % (36.0-48.0); MCH 28.1 pg (26.0-34.0); MCHC 30.9 g/dL (31.0-37.0); MCV 90.8 fL (80.0-100.0); MEAN PLATELET VOLUME 8.7 fL (7.4-10.4); PLATELET COUNT 417 10x3/uL (130-400); RBC 4.99 10x6/uL (4.00-5.40); RDW 15.8 % (11.5-14.5); WBC 22.8 10x3/uL (4.8-10.8)
[2020-03-23 17:34] LABS: ALBUMIN 3.4 g/dL (3.4-5.0); CALCIUM 8.7 mg/dL (8.5-10.1); CREATININE - SERUM 1.2 mg/dL (0.6-1.3); POTASSIUM - SERUM 3.5 mmol/L (3.5-5.1)
[2020-03-23 17:38] LABS: LYMPHOCYTES 12 % (15-50); MONOCYTES 3 % (2-11); NEUTROPHILS 85 % (40-80)
[2020-03-23 17:39] LABS: PLATELET ESTIMATE INCREASED
[2020-03-23 17:48] LABS: ANION GAP 36.3 mmol/L (8-16); BILIRUBIN - TOTAL 0.11 mg/dL (0.2-1.3)
[2020-03-23 17:56] LABS: CARBON DIOXIDE 5.2 mmol/L (21.0-32.0)
--- NOTE | 2020-03-23 18:14 | NUR ---
FSBS 68
--- NOTE | 2020-03-23 18:15 | NUR ---
EJ STARTED BY DAVID DOSHI.
--- NOTE | 2020-03-23 18:19 | NUR ---
AFTER MORPHINE PT'S BP DROPPED TO 56/32, DR DOSHI NOTIFIED. L EJ PLACED, LR BOLUS STARTED. PT RESPONSIVE DURING EPISODE.
--- NOTE | 2020-03-23 19:00 | NUR ---
PT RESTING ON BED. NO S/S OF ACUTE DISTRESS NOTED. PT AWAKE AND ALERT, TALKING ON THE PHONE.
[2020-03-23 19:06] LABS: AMORPHOUS SEDIMENT >1+ /lpf (NONE SEEN); BACTERIA MODERATE /hpf (NEGATIVE); BILIRUBIN NEGATIVE (NEGATIVE); EPITHELIAL CELLS RARE /hpf (0-5); GLUCOSE NEGATIVE (NEGATIVE); KETONE LARGE mg/dL (NEGATIVE); NITRITE NEGATIVE (NEGATIVE); RED CELLS - URINE RARE /hpf (0-5); SPECIFIC GRAVITY 1.025 (1.005-1.020); UROBILINOGEN NORMAL (NORMAL); WHITE CELLS - URINE 0-5 /hpf (NEGATIVE)
--- NOTE | 2020-03-23 19:34 | NUR ---
PT UPDATED ON PLAN OF CARE. PT DENIES NEEDS.
--- NOTE | 2020-03-23 19:55 | NUR ---
FSBS 84
--- NOTE | 2020-03-23 20:25 | NUR ---
MERREM INFUSION COMPLETE AT THIS TIME.
--- NOTE | 2020-03-23 20:35 | NUR ---
450ML CLEAR, YELLOW URINE EMPTIED FROM ACEVEDO AT THIS TIME.
--- NOTE | 2020-03-23 21:00 | NUR ---
PT RECIEVED FROM ER VIA STRETCHER, PT MOVED SELF TO BED, A/OX4, VOICES NEEDS, ADMISSION ASSESSMENT COMPLETED, LEFT AC PIV INTACT WITH IVF INFUSING, LEFT EJ SL, ACEVEDO PATENT TO BSD, ABDOMINAL WOUND THAT PT STATES RESULTED FROM SURGERY 10 YEARS AGO, VITALS STABLE
--- NOTE | 2020-03-23 23:00 | NUR ---
CALLED DR ELIAS WITH ABG RESULTS, NO NEW ORDERS AT THIS TIME
[2020-03-24] VITALS (24 sets, daily range): BP systolic 103–151; BP diastolic 52–91; Ht 170.2 cm; Wt 82.6 kg
--- NOTE | 2020-03-24 01:00 | NUR ---
PT REMAINS AWAKE, WATCHING TV, VITALS STABLE
--- NOTE | 2020-03-24 03:40 | NUR ---
LAB IN ROOM TO DRAW BLOOD, PT AWAKE WITHOUT DISTRESS, VITALS STABLE, STATES SHE FEELS BETTER TODAY
[2020-03-24 03:49] LABS: BASOPHILS 0.1 % (0-2); EOSINOPHILS 0.7 % (0-7); HEMOGLOBIN 11.5 g/dL (12-16); IMMATURE GRANULOCYTES 0.8 % (0-5); LYMPHOCYTES 20.7 % (15-50); MCHC 32.5 g/dL (31.0-37.0); MEAN PLATELET VOLUME 8.6 fL (7.4-10.4); MONOCYTES 19.9 % (2-11); NEUTROPHILS 57.8 % (40-80); RBC 4.11 10x6/uL (4.00-5.40); RDW 15.6 % (11.5-14.5)
[2020-03-24 03:57] LABS: HEMATOCRIT 35.4 % (36.0-48.0); WBC 11.6 10x3/uL (4.8-10.8)
[2020-03-24 03:58] LABS: MCV 86.1 fL (80.0-100.0); PLATELET COUNT 255 10x3/uL (130-400)
[2020-03-24 04:22] LABS: ALBUMIN 2.7 g/dL (3.4-5.0); ALKALINE PHOSPHATASE 113 U/L (30-120); ALT (SGPT) 17 U/L (10-68); CALC OSMOLALITY 276 mosm/kg (275-300); CALCIUM 7.4 mg/dL (8.5-10.1); CARBON DIOXIDE 21.9 mmol/L (21.0-32.0); CHLORIDE - SERUM 100 mmol/L (98-107); CKMB 15.1 U/L (0.0-3.6); CREATINE KINASE 163 UL (21-215); CREATININE - SERUM 1.1 mg/dL (0.6-1.3); GLUCOSE 188 mg/dL (74-106); POTASSIUM - SERUM 3.8 mmol/L (3.5-5.1); PROTEIN - SERUM 6.1 g/dL (6.4-8.2); SODIUM 135 mmol/L (136-145); UREA NITROGEN 17 mg/dL (7-18); eGFR NON AFRICAN AMERICAN 52 mL/min (90-120)
[2020-03-24 04:23] LABS: TROPONIN-I 1.044 ng/mL (0.000-0.060)
--- NOTE | 2020-03-24 05:28 | NUR ---
PT RESTING QUIETLY WITH EYES CLOSED, AROUSES EASILY WITH NO C/O, VITALS STABLE
--- NOTE | 2020-03-24 07:00 | NUR ---
PT REPORT RECEIVED FROM GALLEY HAND NURSE. NO ACUTE SIGNS OF DISTRESS NOTED. SHIFT ASSESSMENT COMPLETED. WILL CONTINUE TO MONITOR
--- NOTE | 2020-03-24 07:47 | NUR ---
CALLED PHARMACY FOR SODIUM BICARB DRIP. WAITING FOR THEM TO DELIVER
--- NOTE | 2020-03-24 08:45 | NUR ---
DR WALLACE IN ROOM. UPDATE GIVEN. NEW ORDER RECEIVED TO START PT ON A CLEAR LIQUID DIET. WILL CONTINUE TO MONITOR
--- NOTE | 2020-03-24 09:41 | NUR ---
PT RESTING IN BED. TOLERATED AM MEDS WELL. NO S/S ASPIRATION CHOKING. ASKED FOR BEEF BROTH. PROVIDED TO PT. WILL CONTINUE TO MONITOR
--- NOTE | 2020-03-24 10:22 | NUR ---
DR ISLAS IN ROOM. UPDATE GIVEN. NO NEW ORDERS AT THIS TIME.
--- NOTE | 2020-03-24 11:15 | NUR ---
WOUND CARE NURSE IN ROOM. ASSESSED WOUND AND CHANGED DRESSING. PT TOLERATED WELL. WILL CONTINUE TO MONITOR
--- NOTE | 2020-03-24 11:32 | NUR ---
PT HAS ABDOMINAL INCISION WITH DRAINING WOUND X APPROX 10 YEARS/PER PT. SHE SEES DR. BREWER AT [facility] FOR DEBRIDEMENT AND TREATMENT. CURRENTLY SHE IS USING PLUROGEL ON NECROTIC TISSUE . WILL RECOMMEND CONTINUING WITH THIS TREATMENT. THE INCISION IS LENGTHWISE AND THE OPEN AREA HAS YELLOW NECROTIC HYPERGRANULATED TISSUE. THERE IS A MODERATE SEROUS DRAINAGE. PTS CARES FOR THE WOUND WHEN PT IS AT HOME. WOUND CARE WILL CONTINUE MONITORING.
--- NOTE | 2020-03-24 12:24 | NUR ---
BLOOD CULTURE RESULTS CALLED FROM LAB. RESULTS RELAYED TO DR ISLAS.
[2020-03-24 16:08] LABS: CKMB 12.1 U/L (0.0-3.6); CREATINE KINASE 172 UL (21-215)
[2020-03-24 16:11] LABS: TROPONIN-I 1.969 ng/mL (0.000-0.060)
--- NOTE | 2020-03-24 17:24 | MORECARE ---
CASE MANAGEMENT DISCHARGE SUMMARY PATIENT: CALEB TELLEZ UNIT: [id number] ADM DATE: 03/23/20 AGE: 69 : 50 SEX: F ROOM/BED: D.2310 AUTHOR: COURT,DOC PHYSICIAN: REFERRING PHYSICIAN: CHANI ELIAS DO DATE OF SERVICE: 03/24/20 Discharge Plan Patient Name: CALEB TELLEZ Facility: [facility]:[place] : 1950 Planned Disposition: Home with Home Health Anticipated Discharge Date: Discharge Date: Expected LOS: Initial Reviewer: [email or web address] Initial Review Date: 03/23/2020 Generated: 03/24/20 6:23 pm Comments DCP- Discharge Planning Updated by [email or web address]: Tigist Tesfaye on 03/24/20 4:[address] Patient Name: CALEB TELLEZ Admission Status: ER Accout number: [id number] Admission Date: 03-23-2020 : 1950 Admission Diagnosis: Attending: CHANI ELIAS Current LOS: 1 Anticipated DC Date: Planned Disposition: Home with Home Health Primary Insurance: MEDICARE A & B Discharge Planning Comments: CM met with patient to complete initial dc planning assessment. CM educated patient on the CM role and verbal consent given by patient to complete assessment. Patient lives at home with her where she is independent with her care. At discharge patient plans to return home and feels this is a safe discharge. CM discussed availability of home health, rehab services, and medical equipment. Her will be her ready mix truck driver home. Patient denied known discharge needs at this time. CM will continue to follow and will assist as needed with dc plans/needs. Campus Executive Director: Tigist Tesfaye DCPIA - Discharge Planning Initial Assessment Updated by [email or web address]: Tigist Tesfaye on 03/24/20 5:21 pm * Is the patient Alert and Oriented? Yes * How many steps to enter\exit or inside your home? RAMP * PCP PERAZA * Pharm[facility] [place] * Preadmission Environment Home with Family * ADLs Independent * Other Equipment WALKER X2, HOSP BED, ELEVATED TOILET SEAT, BSC, W/C, * List name and contact numbers for known caregivers / representatives who currently or will assist patient after discharge: NILE TELLEZ - SPOUSE - [phone] * Verbal permission to speak to the caregivers and representatives has been obtained from the patient. Yes * Please name any agencies selected above. WOULD LIKE HH ON DISCHARGE * Additional services required to return to the preadmission environment? No * Can the patient safely return to the preadmission environment? Yes * Has this patient been hospitalized within the prior 30 days at any hospital? No Coverage Notice Reviewer: [id number] Renato Tesfaye Notice Issued Date-Time: 03/24/2020 15:15 Notice Type: Patient Choice Letter Notice Delivered To: Patient Relationship to Patient: Self Folder And Notcher Name: Delivery Method: - Rox Days: Prior Verbal Notification: Recipient Understood Notice: Recipient Signature: Med Rec Note Co-signed by Attending: Coverage Notice Comment: Patient Name: CALEB TELLEZ Page 73054 at 1724 All edits/amendments must be made on the electronic document DICTATION DATE: 03/24/201722 INSURANCE CLERK: FERMIN 03/24/201722 RPT#: [id number] DC DATE: STATUS: ADM IN [facility] [address] [place] [address] END OF REPORT
--- NOTE | 2020-03-24 17:34 | MORECARE ---
CASE MANAGEMENT DISCHARGE SUMMARY PATIENT: CALEB TELLEZ UNIT: [id number] ADM DATE: 03/23/20 AGE: 69 : 50 SEX: F ROOM/BED: D.2310 AUTHOR: COURT,DOC PHYSICIAN: REFERRING PHYSICIAN: CHANI ELIAS DO DATE OF SERVICE: 03/24/20 Discharge Plan Patient Name: CALEB TELLEZ Facility: [facility]:[place] : 1950 Planned Disposition: Home with Home Health Anticipated Discharge Date: Discharge Date: Expected LOS: Initial Reviewer: [email or web address] Initial Review Date: 03/23/2020 Generated: 03/24/20 6:34 pm Comments DCP- Discharge Planning Updated by [email or web address]: Tigist Tesfaye on 03/24/20 4:[address] Patient Name: CALEB TELLEZ Admission Status: ER Accout number: [id number] Admission Date: 03-23-2020 : 1950 Admission Diagnosis: Attending: CHANI ELIAS Current LOS: 1 Anticipated DC Date: Planned Disposition: Home with Home Health Primary Insurance: MEDICARE A & B Discharge Planning Comments: CM met with patient to complete initial dc planning assessment. CM educated patient on the CM role and verbal consent given by patient to complete assessment. Patient lives at home with her where she is independent with her care. At discharge patient plans to return home and feels this is a safe discharge. CM discussed availability of home health, rehab services, and medical equipment. Her will be her construction driver home. Patient denied known discharge needs at this time. CM will continue to follow and will assist as needed with dc plans/needs. Industrial Cafeteria Manager: Tigist Tesfaye Appended by Tigist Tesfaye on 03/24/2020 17:26 CDT: patient is requesting Home health for wound care upon discharge will need order IVON signed for [facility] in [place]. DCPIA - Discharge Planning Initial Assessment Updated by [email or web address]: Tigist Tesfaye on 03/24/20 5:21 pm * Is the patient Alert and Oriented? Yes * How many steps to enter\exit or inside your home? RAMP * PCP PERAZA * [facility] [place] * Preadmission Environment Home with Family * ADLs Independent * Other Equipment WALKER X2, HOSP BED, ELEVATED TOILET SEAT, BSC, W/C, * List name and contact numbers for known caregivers / representatives who currently or will assist patient after discharge: NILE TELLEZ - [facility] - [phone] * Verbal permission to speak to the caregivers and representatives has been obtained from the patient. Yes * Please name any agencies selected above. WOULD LIKE ON DISCHARGE * Additional services required to return to the preadmission environment? No * Can the patient safely return to the preadmission environment? Yes * Has this patient been hospitalized within the prior 30 days at any hospital? No Coverage Notice Reviewer: [id number] - Tigist Tesfaye Notice Issued Date-Time: 03/24/2020 15:15 Notice Type: Patient Choice Letter Notice Delivered To: Patient Relationship to Patient: Self Sign Language Interpreter Name: Delivery Method: HAND - Hand Delivered Rox Days: Prior Verbal Notification: Recipient Understood Notice: Yes Recipient Signature: Yes Med Rec Note Co-signed by Attending: Coverage Notice Comment: humaira Perales DP export: 03/24/20 4:24 p Patient Name: CALEB TELLEZ Page 47521 at 1734 All edits/amendments must be made on the electronic document DICTATION DATE: 03/24/201733 CONTINUING EDUCATION DEAN: FERMIN 03/24/201733 RPT#: [id number] DC DATE: STATUS: ADM IN [address] [place] [address] END OF REPORT
--- NOTE | 2020-03-24 19:15 | NUR ---
PT A/OX4, LUNGS CLEAR, LEFT AC AND LEFT EJ PIV INTACT AND SL, DRSG INTACT TO ABDOMINAL WOUND, ACEVEDO PATENT TO BSD, VITALS STABLE
--- NOTE | 2020-03-24 21:00 | NUR ---
PT RESTING QUIETLT, TAKES PO MEDS WITHOUT DIFFICULTY, WILL CONT TO MONITOR
[2020-03-24 22:24] LABS: CKMB 8.5 U/L (0.0-3.6); CREATINE KINASE 150 UL (21-215)
[2020-03-24 22:25] LABS: TROPONIN-I 2.032 ng/mL (0.000-0.060)
--- NOTE | 2020-03-24 23:30 | NUR ---
PT ASLEEP WITH NO DISTRESS, VITALS STABLE
[2020-03-25] VITALS (22 sets, daily range): BP systolic 99–150; BP diastolic 52–108
--- NOTE | 2020-03-25 01:00 | NUR ---
PT RESTING QUIETLY WITH NO DISTRESS NOTED, VITALS STABLE
--- NOTE | 2020-03-25 03:00 | NUR ---
REMAINS ASLEEP WITH NO CHANGES, WILL CONT TO MONITOR
[2020-03-25 04:29] LABS: BASOPHILS 0.1 % (0-2); EOSINOPHILS 0.4 % (0-7); HEMATOCRIT 33.2 % (36.0-48.0); HEMOGLOBIN 10.6 g/dL (12-16); IMMATURE GRANULOCYTES 0.1 % (0-5); LYMPHOCYTES 31.6 % (15-50); MCH 27.7 pg (26.0-34.0); MCHC 31.9 g/dL (31.0-37.0); MCV 86.7 fL (80.0-100.0); MEAN PLATELET VOLUME 8.6 fL (7.4-10.4); MONOCYTES 13.4 % (2-11); NEUTROPHILS 54.4 % (40-80); RBC 3.83 10x6/uL (4.00-5.40); RDW 16.2 % (11.5-14.5)
[2020-03-25 04:48] LABS: PLATELET COUNT 171 10x3/uL (130-400); WBC 7.1 10x3/uL (4.8-10.8)
[2020-03-25 05:06] LABS: CALC OSMOLALITY 280 mosm/kg (275-300); CALCIUM 8.3 mg/dL (8.5-10.1); CARBON DIOXIDE 35.8 mmol/L (21.0-32.0); CHLORIDE - SERUM 104 mmol/L (98-107); CKMB 6.2 U/L (0.0-3.6); CREATINE KINASE 108 UL (21-215); CREATININE - SERUM 0.8 mg/dL (0.6-1.3); GLUCOSE 103 mg/dL (74-106); POTASSIUM - SERUM 3.5 mmol/L (3.5-5.1); SODIUM 142 mmol/L (136-145); UREA NITROGEN 7 mg/dL (7-18); eGFR NON AFRICAN AMERICAN 75 mL/min (90-120)
[2020-03-25 05:07] LABS: TROPONIN-I 1.823 ng/mL (0.000-0.060)
--- NOTE | 2020-03-25 06:00 | NUR ---
PT AWAKE, TAKES PO MEDS WITHOUT DIFFICULTY, NO CHANGES NOTED, PT STATES SHE FEELS MUCH BETTER TODAY
--- NOTE | 2020-03-25 07:00 | NUR ---
PT REPORT RECEIVED FROM COLD SAW OPERATOR NURSE. NO ACUTE SIGNS OF DISTRESS NOTED. PT RESTING IN BED COMFORTABLY. SHIFT ASSESSMENT COMPLETED. WILL CONTINUE TO MONITOR
--- NOTE | 2020-03-25 08:00 | NUR ---
DR WALLACE IN ROOM. UPDATE GIVEN. WANTS TO GO AHEAD WITH CT SCAN. WILL CONTINUE TO MONITOR
--- NOTE | 2020-03-25 09:45 | NUR ---
LT AC PIV INFILTRATED. REMOVED IV AND PLACED DRESSING ON IV SITE. PT HAS SMALL AMOUNT OF SWELLING. WILL CONTINUE TO MONITOR
--- NOTE | 2020-03-25 11:00 | NUR ---
REASSESSMENT DONE AND DOCUMENTED. VSS. NO COMPLAINTS OR NEEDS. WILL CONTINUE TO MONITOR.
--- NOTE | 2020-03-25 17:30 | NUR ---
PT ON BEDPAN. HAD GOOD SIZE BM. LOOSE DARK STOOL NOTED. WILL CONTINUE TO MONITOR
--- NOTE | 2020-03-25 18:00 | NUR ---
REPLACED WOUND DRESSING. PT TOLERATED WELL. NO ACUTE SIGNS OF DISTRESS NOTED. WILL CONTINUE TO MONITOR
--- NOTE | 2020-03-25 21:30 | NUR ---
PT GONE TO CT VIA BED
--- NOTE | 2020-03-25 23:00 | NUR ---
PT RESTING QUIETLY, HAD BM WITH BEDPAN, LOOSE DARK GREEN DIARRHEA
[2020-03-26] VITALS (15 sets, daily range): BP systolic 111–161; BP diastolic 63–135
--- NOTE | 2020-03-26 01:30 | NUR ---
PT SLEEPING, SINUS BRADYCARDIA, WILL CONT TO MONITOR
--- NOTE | 2020-03-26 03:30 | NUR ---
PT REMAINS IN SINUS FERNANDO, STABLE WITH NO DISTRESS
[2020-03-26 04:24] LABS: BASOPHILS 0 % (0-2); EOSINOPHILS 0 % (0-7); HEMATOCRIT 32.8 % (36.0-48.0); HEMOGLOBIN 10.2 g/dL (12-16); IMMATURE GRANULOCYTES 0.3 % (0-5); LYMPHOCYTES 13.6 % (15-50); MCH 27.3 pg (26.0-34.0); MCHC 31.1 g/dL (31.0-37.0); MCV 87.7 fL (80.0-100.0); MEAN PLATELET VOLUME 9.1 fL (7.4-10.4); NEUTROPHILS 80.1 % (40-80); PLATELET COUNT 168 10x3/uL (130-400); RBC 3.74 10x6/uL (4.00-5.40); RDW 16.2 % (11.5-14.5)
[2020-03-26 04:43] LABS: CALCIUM 8.3 mg/dL (8.5-10.1); CARBON DIOXIDE 31.4 mmol/L (21.0-32.0); CHLORIDE - SERUM 102 mmol/L (98-107); CREATININE - SERUM 0.6 mg/dL (0.6-1.3); POTASSIUM - SERUM 3.8 mmol/L (3.5-5.1); SODIUM 137 mmol/L (136-145); eGFR NON AFRICAN AMERICAN > 90 mL/min (90-120)
[2020-03-26 04:54] LABS: CALC OSMOLALITY 273 mosm/kg (275-300); GLUCOSE 151 mg/dL (74-106); UREA NITROGEN 5 mg/dL (7-18)
--- NOTE | 2020-03-26 07:00 | NUR ---
PT REPORT RECEIVED FROM WASH HOUSE WORKER NURSE. NO ACUTE SIGNS OF DISTRESS NOTED. SHIFT ASSESSMENT COMPLETED. WILL CONTINUE TO MONITOR
--- NOTE | 2020-03-26 08:07 | NUR ---
Nutrition follow-up: Diet advanced to full liquids; PO intake ~75% of last 5 meals Labs reviewed Wt: 182# Multiple loose BM's RDN will order Ensure with meals. RDN following.
--- NOTE | 2020-03-26 09:30 | NUR ---
PT RESTING IN BED. NO COMPLAINTS NOTED AT THIS TIME. WILL CONTINUE TO MONITOR
--- NOTE | 2020-03-26 13:07 | NUR ---
family in room. update given. will continue to monitor
--- NOTE | 2020-03-26 14:12 | NUR ---
PT PROVIDED MATERIALS FOR A CHG BATH. STATED THAT SHE WILL GIVE HERSELF A BATH AND LET THE TECH KNOW WHEN SHE IS FINISHED SO HER SHEETS CAN BE CHANGED
--- NOTE | 2020-03-26 15:20 | NUR ---
PHYSICAL THERAPY IN ROOM. PT STANDING UP AT BEDSIDE. TOLERATED WELL.
--- NOTE | 2020-03-26 20:00 | NUR ---
RECIEVED TO ROOM ACCOMPANIED BY ICU STAFF. A&O X 4 DENIES N/V/D, REPORTS PAIN TO CHRONIC WOUND ON ABDOMEN, DRESSING C/D/I. ALSO REPORTS FEELING FLUSHED, AND UPPER BODY ACHES(CHEST, BACK, SHOULDERS, NECK). ICE WATER GIVEN PER REQUEST. PT WONDERING WHEN ACEVEDO CAN BE REMOVED, STATES IT WAS INSERTED WHILE SHE WAS WEAK/BEDFAST AND DENIES DIFFICULTY VOIDING PRIOR TO INSERTION. DISCUSSED POSSIBLY BLADDER TRAINING AND DISCUSSION REMOVAL WITH MD IN THE A.M.. PT VERBALIZED UNDERSTANDING. PT REQUESTED IV TO LEFT NECK(EJ) BE REMOVED, STATES IT UNCOMFORTABLE. INFORMED PT EXTRA IV WOULD BE BENEFICIAL IF OTHER IV GOES BAD, IT'LL PREVENT FURTHER IV STICKS. NO FURTHER NEEDS VOICED AT THIS TIME, CTM.
[2020-03-27] VITALS: BP 156/75
--- NOTE | 2020-03-27 01:00 | NUR ---
ACEVEDO TUBING KINK, REITERATED BLADDER TRAINING, PT STATES SHE HAS HAD MULTIPLE FOLEYS BEFORE AND IS AWARE OF THE PROCESWS. PT ALSO INSISTS THAT HER SALINE LOCKED 22G IV TO LEFT EXTERNAL JUGULAR BE REMOVED. REPORTS DISCOMFORT AND STATES IT KEPT LEAKING WHEN CONNECTED TO ABX AND THAT IS WHY SHE HAD ANOTHER IV SITED TO RIGHT AC. REMOVED PER REQUEST, CATH INTACT. NO BLEEDING NOTED, GAUZE, TAPE AND PRESSURE APPLIED. NO FURTHER NEED AT THIS TIME.
[2020-03-27 04:00] VITALS: BP 147/56
[2020-03-27 05:36] LABS: BASOPHILS 0 % (0-2); EOSINOPHILS 0.7 % (0-7); HEMATOCRIT 32.7 % (36.0-48.0); HEMOGLOBIN 10.3 g/dL (12-16); IMMATURE GRANULOCYTES 0.2 % (0-5); LYMPHOCYTES 46.4 % (15-50); MCH 27.8 pg (26.0-34.0); MCHC 31.5 g/dL (31.0-37.0); MCV 88.1 fL (80.0-100.0); MEAN PLATELET VOLUME 9.3 fL (7.4-10.4); MONOCYTES 5.5 % (2-11); NEUTROPHILS 47.2 % (40-80); PLATELET COUNT 185 10x3/uL (130-400); RBC 3.71 10x6/uL (4.00-5.40); RDW 16.2 % (11.5-14.5)
[2020-03-27 05:49] LABS: CALCIUM 8.2 mg/dL (8.5-10.1); CARBON DIOXIDE 31.2 mmol/L (21.0-32.0); CHLORIDE - SERUM 105 mmol/L (98-107); CREATININE - SERUM 0.7 mg/dL (0.6-1.3); SODIUM 142 mmol/L (136-145); eGFR NON AFRICAN AMERICAN 88 mL/min (90-120)
[2020-03-27 05:52] LABS: CALC OSMOLALITY 279 mosm/kg (275-300); GLUCOSE 85 mg/dL (74-106); POTASSIUM - SERUM 3.1 mmol/L (3.5-5.1); UREA NITROGEN 7 mg/dL (7-18)
--- NOTE | 2020-03-27 07:35 | NUR ---
REPORT RECIEVED. PT SITTING SEMI FOWLERS IN BED. RR EVEN AND UNLABORED ON RA. PT HAS A R AC PIV THAT IS SL AND A ACEVEDO DRAINING URINE. BED LOCKED AND IN LOWEST POSITION, CALL LIGHT WITHIN REACH. WILL CTM
[2020-03-27 08:30] VITALS: BP 147/67
[2020-03-27 12:25] VITALS: BP 142/61
[2020-03-27 16:45] VITALS: BP 137/70
--- NOTE | 2020-03-27 19:26 | NUR ---
I have reviewed this patient and I concur with the Shift Assessment completed by the Licensed Practical Nurse today this shift.
[2020-03-27 20:00] VITALS: BP 188/91
--- NOTE | 2020-03-27 20:00 | NUR ---
SUPINE IN BED, A&O X 4. AMBULATES AD LANI. REPORTS SHE JUST VOIDED SINCE SHE HAD HER ACEVEDO OUT, NO NEEDS AT THIS TIME, CTM.
[2020-03-28] VITALS: BP 110/59
--- NOTE | 2020-03-28 02:21 | NUR ---
I have reviewed this patient and I concur with the Shift Assessment completed by the Licensed Practical Nurse today this shift.
[2020-03-28 04:00] VITALS: BP 148/64
[2020-03-28 06:23] LABS: BASOPHILS 0.2 % (0-2); EOSINOPHILS 1.9 % (0-7); HEMATOCRIT 32.3 % (36.0-48.0); LYMPHOCYTES 42.6 % (15-50); MCH 27.5 pg (26.0-34.0); MCV 88.7 fL (80.0-100.0); MEAN PLATELET VOLUME 8.8 fL (7.4-10.4); MONOCYTES 11.5 % (2-11); NEUTROPHILS 43.8 % (40-80); PLATELET COUNT 161 10x3/uL (130-400); RBC 3.64 10x6/uL (4.00-5.40); RDW 16.2 % (11.5-14.5); WBC 5.1 10x3/uL (4.8-10.8)
[2020-03-28 06:40] LABS: CALC OSMOLALITY 281 mosm/kg (275-300); CALCIUM 8.1 mg/dL (8.5-10.1); CARBON DIOXIDE 32.6 mmol/L (21.0-32.0); CHLORIDE - SERUM 105 mmol/L (98-107); CREATININE - SERUM 0.7 mg/dL (0.6-1.3); GLUCOSE 88 mg/dL (74-106); MAGNESIUM - SERUM 1.8 mg/dL (1.8-2.4); POTASSIUM - SERUM 3.5 mmol/L (3.5-5.1); SODIUM 143 mmol/L (136-145); eGFR NON AFRICAN AMERICAN 88 mL/min (90-120)
[2020-03-28 06:59] LABS: UREA NITROGEN 8 mg/dL (7-18)
--- NOTE | 2020-03-28 08:18 | NUR ---
ADMINISTERED MORNING MEDICATION AT THIS TIME. PT IS RECLINED IN BED, AT BEDSIDE. ASSESSMENT PERFORMED AT THIS TIME. DENIES ANY NEEDS. BED IN LOWEST POSITION, BED RAILS X2, CALL LIGHT WITHIN REACH. WILL CONTINUE TO MONITOR.
[2020-03-28 08:26] VITALS: BP 142/64
[2020-03-28] MEDS ORDERED: COREG 3.1253.125 MG PO (10:25)
--- NOTE | 2020-03-28 10:55 | NUR ---
ADMINISTERED IV ANTIBIOTICS AND IV MORPHINE PER PT REQUEST FOR PAIN LEVEL OF 7/10 IN INCISION. PT IN BEDSIDE CHAIR, IN ROOM. DENIES ANY NEEDS AT THIS TIME. WILL CONTINUE TO MONITOR.
[2020-03-28 12:45] VITALS: BP 166/80
--- NOTE | 2020-03-28 12:58 | MORECARE ---
CASE MANAGEMENT DISCHARGE SUMMARY PATIENT: CALEB TELLEZ UNIT: [id number] ADM DATE: 03/23/20 AGE: 69 : 50 SEX: F ROOM/BED: D.2210 AUTHOR: COURT,DOC PHYSICIAN: REFERRING PHYSICIAN: CHANI ELIAS DO DATE OF SERVICE: 03/28/20 Discharge Plan Patient Name: CALEB TELLEZ Facility: [facility]:[place] : 1950 Planned Disposition: Home with Home Health Anticipated Discharge Date: Discharge Date: Expected LOS: Initial Reviewer: [email or web address] Initial Review Date: 03/23/2020 Generated: 03/28/20 1:57 pm DCP- Discharge Planning Updated by [email or web address]: Tigist Tesfaye on 03/24/20 4:[address] Patient Name: CALEB TELLEZ Admission Status: ER Accout number: [id number] Admission Date: 03-23-2020 : 1950 Admission Diagnosis: Attending: CHANI ELIAS Current LOS: 1 Anticipated DC Date: Planned Disposition: Home with Home Health Primary Insurance: MEDICARE A & B Discharge Planning Comments: CM met with patient to complete initial dc planning assessment. CM educated patient on the CM role and verbal consent given by patient to complete assessment. Patient lives at home with her where she is independent with her care. At discharge patient plans to return home and feels this is a safe discharge. CM discussed availability of home health, rehab services, and medical equipment. Her will be her airport shuttle driver home. Patient denied known discharge needs at this time. CM will continue to follow and will assist as needed with dc plans/needs. Dynamometer Mechanic: Tigist Tesfaye Appended by Tigist Tesfaye on 03/24/2020 17:26 CDT: patient is requesting Home health for wound care upon discharge will need order IVON signed for [facility] in [place]. DCPIA - Discharge Planning Initial Assessment Updated by [email or web address]: Tigist Tesfaye on 03/24/20 5:21 pm * Is the patient Alert and Oriented? Yes * How many steps to enter\exit or inside your home? RAMP * PCP PERAZA * Pharmacy [facility] [place] * Preadmission Environment Home with Family * ADLs Independent * Other Equipment WALKER X2, HOSP BED, ELEVATED TOILET SEAT, BSC, W/C, * List name and contact numbers for known caregivers / representatives who currently or will assist patient after discharge: NILE TELLEZ - SPOUSE - [phone] * Verbal permission to speak to the caregivers and representatives has been obtained from the patient. Yes * Please name any agencies selected above. WOULD LIKE ON DISCHARGE * Additional services required to return to the preadmission environment? No * Can the patient safely return to the preadmission environment? Yes * Has this patient been hospitalized within the prior 30 days at any hospital? No External Providers External Provider: [facility] Renato Rahman Next Contact Date: Service Request Date: Service Type: Resolution: Reviewer: Comments: Coverage Notice Reviewer: [id number] Renato Tesfaye Notice Issued Date-Time: 03/24/2020 15:15 Notice Type: Patient Choice Letter Notice Delivered To: Patient Relationship to Patient: Self Operating System Designer Name: Delivery Method: HAND - Hand Delivered Rox Days: Prior Verbal Notification: Recipient Understood Notice: Yes Recipient Signature: Yes Med Rec Note Co-signed by Attending: Coverage Notice Comment: humaira rahman Last DP export: 03/24/20 4:34 p Patient Name: CALEB TELLEZ Page [id number] at 1258 All edits/amendments must be made on the electronic document DICTATION DATE: 03/28/20 1257 UNDERCOLLAR MAKER: FERMIN 03/28/20 1257 RPT#: [id number] DC DATE: STATUS: ADM IN [facility] [address] [place] [address] END OF REPORT
--- NOTE | 2020-03-28 13:06 | MORECARE ---
CASE MANAGEMENT DISCHARGE SUMMARY PATIENT: CALEB TELLEZ UNIT: [id number] ADM DATE: 03/23/20 AGE: 69 : 50 SEX: F ROOM/BED: D.2210 AUTHOR: COURT,DOC PHYSICIAN: REFERRING PHYSICIAN: CHANI ELIAS DO DATE OF SERVICE: 03/28/20 Discharge Plan Patient Name: CALEB TELLEZ Facility: [facility]:[place] : 1950 Planned Disposition: Home with Home Health Anticipated Discharge Date: Discharge Date: Expected LOS: Initial Reviewer: [email or web address] Initial Review Date: 03/23/2020 Generated: 03/28/20 2:05 pm Comments DCP- Discharge Planning Updated by [email or web address]: Sunshine Arteaga on 03/28/20 11:[address] PATIENT WILL BE DISCHARGING HOME TODAY, 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 IMM SERVED AND EXPLAINED. SHE WILL BE DISCHARGING HOME WITH [facility] I HAVE CONTACTED RAY WITH [facility] AND THEY WILL BE ABLE ACCEPT HER. CM WILL CONTINUE TO FOLLOW AND ASSIST WITH DC PLANNING NEEDED DCP- Discharge Planning Updated by [id number]: Tigist Tesfaye on 03/24/20 4:[address] Patient Name: CALEB TELLEZ Admission Status: ER Accout number: [id number] Admission Date: 03-23-2020 : 1950 Admission Diagnosis: Attending: CHANI ELIAS Current LOS: 1 Anticipated DC Date: Planned Disposition: Home with Home Health Primary Insurance: MEDICARE A & B Discharge Planning Comments: CM met with patient to complete initial dc planning assessment. CM educated patient on the CM role and verbal consent given by patient to complete assessment. Patient lives at home with her where she is independent with her care. At discharge patient plans to return home and feels this is a safe discharge. CM discussed availability of home health, rehab services, and medical equipment. 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 Patient denied known discharge needs at this time. CM will continue to follow and will assist as needed with dc plans/needs. Headwaitress: Tigist Tesfaye Appended by Tigist Tesfaye on 03/24/2020 17:26 CDT: patient is requesting Home health for wound care upon discharge will need order IVON signed for [facility]. DCPIA - Discharge Planning Initial Assessment Updated by [email or web address]: Tigist Tesfaye on 03/24/20 5:21 pm * Is the patient Alert and Oriented? Yes * How many steps to enter\exit or inside your home? RAMP * PCP PERAZA * Pharmacy [facility] [place] * Preadmission Environment Home with Family * ADLs Independent * Other Equipment WALKER X2, HOSP BED, ELEVATED TOILET SEAT, BSC, W/C, * List name and contact numbers for known caregivers / representatives who currently or will assist patient after discharge: NILE TELLEZ - [facility] - [phone] * Verbal permission to speak to the caregivers and representatives has been obtained from the patient. Yes * Please name any agencies selected above. WOULD LIKE HH ON DISCHARGE * Additional services required to return to the preadmission environment? No * Can the patient safely return to the preadmission environment? Yes * Has this patient been hospitalized within the prior 30 days at any hospital? No Coverage Notice Reviewer: [email or web address] - Tigist Tesfaye Notice Issued Date-Time: 03/24/2020 15:15 Notice Type: Patient Choice Letter Notice Delivered To: Patient Relationship to Patient: Self Computational Mathematician Name: Delivery Method: HAND - Hand Delivered Rox Days: Prior Verbal Notification: Recipient Understood Notice: Yes Recipient Signature: Yes Med Rec Note Co-signed by Attending: Coverage Notice Comment: humaira Gross [place] Reviewer: [id number] - Sunshine Arteaga Notice Issued Date-Time: 03/28/2020 12:40 Notice Type: IM Discharge Notice Notice Delivered To: Patient Relationship to Patient: Computational Mathematician Name: Delivery Method: HAND - Hand Delivered Rox Days: Prior Verbal Notification: Recipient Understood Notice: Yes Recipient Signature: Yes Med Rec Note Co-signed by Attending: Coverage Notice Comment: Last DP export: 03/28/20 11:58 a Patient Name: CALEB TELLEZ Page [id number] at 1306 All edits/amendments must be made on the electronic document DICTATION DATE: 03/28/20 1306 TOBACCO SIEVE OPERATOR: FERMIN 03/28/20 1306 RPT#: [id number] DC DATE: STATUS: ADM IN [facility] [address] [place] [address] END OF REPORT
--- NOTE | 2020-03-28 14:05 | NUR ---
RECEIVED DISCHARGE ORDERS, PT SIGNED ALL NECESSARY PAPERWORK. PROVIDED PT WITH PATIENT BELONGING BAG. REMOVED IV FROM RIGHT AC, CATHETER TIP INTACT. COVERED SITE WITH 2X2'S AND TAPE, TOLERATED WELL. DENIES ANY OTHER NEEDS.
--- NOTE | 2020-03-28 16:29 | MORECARE ---
CASE MANAGEMENT DISCHARGE SUMMARY PATIENT: CALEB TELLEZ UNIT: [id number] ADM DATE: 03/23/20 AGE: 69 : 50 SEX: F ROOM/BED: D.2210 AUTHOR: PRINCE YUN PHYSICIAN: REFERRING PHYSICIAN: CHANI ELIAS DO DATE OF SERVICE: 03/28/20 Discharge Plan Patient Name: CALEB TELLEZ Facility: [facility]:[place] : 1950 Planned Disposition: Home with Home Health Anticipated Discharge Date: Discharge Date: 03/28/2020 Expected LOS: Initial Reviewer: [id number] Initial Review Date: 03/23/2020 Generated: 03/28/20 5:29 pm Comments DCP- Discharge Planning Updated by [email or web address]: Sunshine Arteaga on 03/28/20 11:[address] PATIENT WILL BE DISCHARGING HOME TODAY, HER WILL BE HER [facility] HOME. IMM SERVED AND EXPLAINED. SHE WILL BE DISCHARGING HOME WITH [facility] I HAVE CONTACTED RAY WITH [facility] AND THEY WILL BE ABLE ACCEPT HER. CM WILL CONTINUE TO FOLLOW AND ASSIST WITH DC PLANNING NEEDED DCP- Discharge Planning Updated by [email or web address]: Tigist Tesfaye on 03/24/20 4:[address] Patient Name: CALEB TELLEZ Admission Status: ER Accout number: [id number] Admission Date: 03-23-2020 : 1950 Admission Diagnosis: Attending: CHANI ELIAS Current LOS: 1 Anticipated DC Date: Planned Disposition: Home with Home Health Primary Insurance: MEDICARE A & B Discharge Planning Comments: CM met with patient to complete initial dc planning assessment. CM educated patient on the CM role and verbal consent given by patient to complete assessment. Patient lives at home with her where she is independent with her care. At discharge patient plans to return home and feels this is a safe discharge. CM discussed availability of home health, rehab services, and medical equipment. 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 Patient denied known discharge needs at this time. CM will continue to follow and will assist as needed with dc plans/needs. Public Relations Player: Tigist Tesafye Appended by Tigist Tesfaye on 03/24/2020 17:26 CDT: patient is requesting Home health for wound care upon discharge will need order IVON signed for [facility]. DCPIA - Discharge Planning Initial Assessment Updated by [id number]: Tigist Tesfaye on 03/24/20 5:21 pm * Is the patient Alert and Oriented? Yes * How many steps to enter\exit or inside your home? RAMP * PCP PERAZA * Pharmacy [facility] [place] * Preadmission Environment Home with Family * ADLs Independent * Other Equipment WALKER X2, HOSP BED, ELEVATED TOILET SEAT, BSC, W/C, * List name and contact numbers for known caregivers / representatives who currently or will assist patient after discharge: NILE TELLEZ - [facility] - [phone] * Verbal permission to speak to the caregivers and representatives has been obtained from the patient. Yes * Please name any agencies selected above. WOULD LIKE ON DISCHARGE * Additional services required to return to the preadmission environment? No * Can the patient safely return to the preadmission environment? Yes * Has this patient been hospitalized within the prior 30 days at any hospital? No Coverage Notice Reviewer: [id number] - Tigist Tesfaye Notice Issued Date-Time: 03/24/2020 15:15 Notice Type: Patient Choice Letter Notice Delivered To: Patient Relationship to Patient: Self Golf Instructor Name: Delivery Method: HAND - Hand Delivered Rox Days: Prior Verbal Notification: Recipient Understood Notice: Yes Recipient Signature: Yes Med Rec Note Co-signed by Attending: Coverage Notice Comment: humaira Gross [place] Reviewer: [id number] Renato Arteaga Notice Issued Date-Time: 03/28/2020 12:40 Notice Type: IM Discharge Notice Notice Delivered To: Patient Relationship to Patient: Golf Instructor Name: Delivery Method: HAND - Hand Delivered Rox Days: Prior Verbal Notification: Recipient Understood Notice: Yes Recipient Signature: Yes Med Rec Note Co-signed by Attending: Coverage Notice Comment: Last DP export: 03/28/20 12:06 p Patient Name: CALEB TELLEZ Page [id number] at 7002 All edits/amendments must be made on the electronic document DICTATION DATE: 03/28/209 POWER WOOD SAWYER: FERMIN 03/28/20 1629 RPT#: [id number] DC DATE:03/28/20 STATUS: DIS IN [place] [id number] [place] [address] END OF REPORT
== END 2020-03-28 15:00 | disposition home or self-care (01) | DRG 871 ==
LOC: D.ER 16:47 → D.ICU 19:18 → D.MS 03-26 19:12
PROVIDERS: Family Medicine; Internal Medicine Nephrology; Surgery; ADMIT Family Medicine; ATTEND Family Medicine
DX: A41.9 Sepsis, unspecified organism (principal); I21.A1 Myocardial infarction type 2; E87.2 Acidosis; N39.0 Urinary tract infection, site not specified; I42.9 Cardiomyopathy, unspecified; D64.9 Anemia, unspecified; K52.9 Noninfective gastroenteritis and colitis, unspecified; K76.0 Fatty (change of) liver, not elsewhere classified; Z98.84 Bariatric surgery status; I10 Essential (primary) hypertension; I25.10 Atherosclerotic heart disease of native coronary artery without angina pectoris; E03.9 Hypothyroidism, unspecified; K21.9 Gastro-esophageal reflux disease without esophagitis; M32.9 Systemic lupus erythematosus, unspecified; M35.00 Sjogren syndrome, unspecified; M79.7 Fibromyalgia; I35.0 Nonrheumatic aortic (valve) stenosis